=== PATIENT | male | born 1935 | race Caucasian/White ===

== ENCOUNTER 2018-11-18 09:49 | Inpatient (IN) | payer OTHER ==
[2018-11-18 10:48] LABS: Absolute Lymphocytes (CBC) 1.5 K/uL (0.7-4.9); Absolute Monocytes 0.7 K/uL (0.1-1.3); Absolute Neutrophil 6.1 K/uL (1.8-8.0); Basophils % 0.4 % (0-1.3); Eosinophils % 0.8 % (0-4.4); Hematocrit 22.5 % (39.6-49.0); Lymphocytes % 18.4 % (15.3-44.8); MPV 8.8 fL (7.6-11.3); RBC Red Blood Cell Count 2.39 M/uL (4.33-5.43)
[2018-11-18 10:55] LABS: Potassium 4.3 mmol/L (3.5-5.1)
[2018-11-18] MEDS: PANTOPRAZOLE INJ 80 MG in NA CHLORIDE 0.9% 250 ML IV SCH ×2 (12:00→22:00)
[2018-11-18] MEDS ORDERED: PANTOPRAZOLE 40MG TABLET PO ONE (12:10)
[2018-11-18] MEDS ORDERED: PANTOPRAZOLE 40 MG INJ ONE ×2 (12:11→23:22)
--- NOTE | 2018-11-18 12:12 | EDPHYS ---
Physician Documentation [facility] [place] Name: Kyle De Guzman Age: 83 yrs Sex: Male : 1935 Arrival Date: 11/18/2018 Time: 09:51 Bed 8 Private MD: ED Physician Karl Peterson HPI: 11/18 12:05 This 83 yrs old Male presents to ER via Ambulatory with complaints of gs Abnormal Lab Results, Blood Pressure Problem. 12:05 The patient presents to the emergency department UNSURE, HB LOW ON IRON STOOLS DARK NO gs PAIN. Onset: The symptoms/episode began/occurred 1 week(s) ago. Abdominal pain: none is appreciated. Modifying factors: the symptoms are aggravated by EXERTION GETS SOB. Associated signs and symptoms: The patient has no apparent associated signs or symptoms. Severity of symptoms: At their worst the symptoms were severe in the emergency department the symptoms are unchanged. The patient has experienced similar episodes in the past, a few times. The patient has been recently seen by a physician: the patient's primary care provider, with similar presenting complaints. Historical: - Allergies: 10:06 No Known Allergies; aa5 - PMHx: 10:06 Diabetes - IDDM; Hypertension; "one seizure in the past"; aa5 10:07 COPD; aa5 - PSHx: 10:06 triple bypass; Heart stents; aa5 - Immunization history:: Flu vaccine is up to date. - Social history:: Smoking status: Patient/guardian denies using tobacco. - Ebola Screening: : No symptoms or risks identified at this time. ROS: 12:05 All other systems are negative. gs Exam: 12:05 Head/Face: Normocephalic, atraumatic. Eyes: Pupils equal round and reactive to light, gs extra-ocular motions intact. Lids and lashes normal. Conjunctiva and sclera are non-icteric and not injected. Cornea within normal limits. Periorbital areas with no swelling, redness, or edema. ENT: Nares patent. No nasal discharge, no septal abnormalities noted. Tympanic membranes are normal and external auditory canals are clear. Oropharynx with no redness, swelling, or masses, exudates, or evidence of obstruction, uvula midline. Mucous membranes moist. Neck: Trachea midline, no thyromegaly or masses palpated, and no cervical lymphadenopathy. Supple, full range of motion without nuchal rigidity, or vertebral point tenderness. No Meningismus. 12:05 Chest/axilla: Normal chest wall appearance and motion. Nontender with no deformity. No lesions are appreciated. Cardiovascular: Regular rate and rhythm with a normal S1 and S2. No gallops, murmurs, or rubs. Normal PMI, no JVD. No pulse deficits. Respiratory: Lungs have equal breath sounds bilaterally, clear to auscultation and percussion. No rales, rhonchi or wheezes noted. No increased work of breathing, no retractions or nasal flaring. Abdomen/GI: Soft, non-tender, with normal bowel sounds. No distension or tympany. No guarding or rebound. No evidence of tenderness throughout. Back: No spinal tenderness. No costovertebral tenderness. Full range of motion. Skin: Warm, dry with normal turgor. Normal color with no rashes, no lesions, and no evidence of cellulitis. MS/ Extremity: Pulses equal, no cyanosis. Neurovascular intact. Full, normal range of motion. Neuro: Awake and alert, GCS 15, oriented to person, place, time, and situation. Cranial nerves II-XII grossly intact. Motor strength 5/5 in all extremities. Sensory grossly intact. Cerebellar exam normal. Normal gait. 12:05 Constitutional: The patient appears alert, awake. 12:05 Constitutional: The patient appears pale. 12:05 Abdomen/GI: Rectal exam: Stool: guaiac positive, black. Vital Signs: 10:04 BP 100 / 36; Pulse 74; Resp 16 S; Temp 97.9(TE); Pulse Ox 95% on R/A; Weight 74.39 kg aa5 (R); Height 5 ft. 11 in. (180.34 cm) (R); 11:30 BP 140 / 39; Pulse 58; Resp 16 S; Pulse Ox 98% on R/A; sg 12:11 BP 142 / 47; Pulse 60; Resp 17; Pulse Ox 98% on R/A; Pain 0/10; sg 14:38 BP 166 / 47; Pulse 62; Resp 17; Temp 97.7; Pulse Ox 98% on R/A; Pain 0/10; sg 10:04 Body Mass Index 22.87 (74.39 kg, 180.34 cm) aa5 MDM: 10:39 Patient medically screened. 12:05 Differential diagnosis: gastritis, diverticulitis, hemorrhagic shock, PUD. Data reviewed: vital signs, nurses notes, lab test result(s), EKG. Counseling: I had a detailed discussion with the patient and/or guardian regarding: the historical points, exam findings, and any diagnostic results supporting the discharge/admit diagnosis, the need for further work-up and treatment in the hospital. Response to treatment: the patient's symptoms have mildly improved after treatment, and as a result, I will admit patient. Physician consultation: Sravan Ramsey MD regarding consult, patient's condition, need to evaluate the patient as soon as possible, and will see patient in inpatient room, would like admission per Dr. Lewis Gonzalez MD. 12:05 Physician consultation: would like medications started, blood. 11/18 10:14 Order name: CBC with Diff; Complete Time: 11:02 11/18 10:14 Order name: Basic Metabolic Panel; Complete Time: 11:02 11/18 10:14 Order name: T\\T\\S 11/18 10:14 Order name: Protime (+inr); Complete Time: 11:02 11/18 11:59 Order name: ABO/RH no charge; Complete Time: 12:12 EDMS Administered Medications: 12:04 Not Given (Duplicate Order): ProTONIX 40 mg PO once sg 12:05 Drug: ProTONIX 40 mg Route: IVP; Site: left antecubital; sg 12:15 Drug: ProTONIX 8 mg/hr Route: IV; Rate: 25 ml/hr; Site: left antecubital; sg 15:00 Follow up: Response: No adverse reaction; IV Status: Infusion continued upon admission sg Disposition: 11/18/18 12:11 Hospitalization ordered by Lewis Gonzalez for Inpatient Admission. Preliminary diagnosis is Gastrointestinal hemorrhage, unspecified. - Bed requested for Telemetry/MedSurg (Inpatient). - Status is Inpatient Admission. sg - Condition is Stable. - Problem is new. - Symptoms have improved. UTI on Admission? No Critical care time excluding procedures: 12:05 Critical care time: Bedside Care: 10 minutes, Consultation: 10 minutes, Family gs Intervention: 10 minutes. Total time: 30 minutes Signatures: Dispatcher [employer] EDJohnna Worthy RN RN Geovany Ruvaclaba, RN RN sg Richa Ivan RN RN aa5 Karl Peterson MD MD Corrections: (The following items were deleted from the chart) 14:11 12:11 Hospitalization Ordered by Lewis Gonzalez MD for Inpatient Admission. Preliminary dw diagnosis is Gastrointestinal hemorrhage, unspecified. Bed requested for Telemetry/MedSurg (Inpatient). Status is Inpatient Admission. Condition is Stable. Problem is new. Symptoms have improved. UTI on Admission? No. gs 15:07 14:11 11/18/2018 12:11 Hospitalization Ordered by Lewis Gonzalez MD for Inpatient sg Admission. Preliminary diagnosis is Gastrointestinal hemorrhage, unspecified. Bed requested for Telemetry/MedSurg (Inpatient). Status is Inpatient Admission. Condition is Stable. Problem is new. Symptoms have improved. UTI on Admission? No. dw
--- NOTE | 2018-11-18 12:12 | ER ---
Nurse's Notes [facility] Name: Kyle De Guzman Age: 83 yrs Sex: Male : 1935 Arrival Date: 11/18/2018 Time: 09:51 Bed 8 Private MD: Diagnosis: Gastrointestinal hemorrhage, unspecified Presentation: 11/18 10:02 Presenting complaint: Patient states: "Dr. Hull called me and said to come here aa5 because my blood work was low". Hemoglobin 8.5 on 11/14/18. Pt c/o generalized weakness. Transition of care: patient was not received from another setting of care. Onset of symptoms was October 2018. Risk Assessment: Do you want to hurt yourself or someone else? Patient reports no desire to harm self or others. Initial Sepsis Screen: Does the patient meet any 2 criteria? No. Patient's initial sepsis screen is negative. Does the patient have a suspected source of infection? No. Patient's initial sepsis screen is negative. Care prior to arrival: None. 10:02 Acuity: JAVI 2 aa5 10:02 Method Of Arrival: Ambulatory aa5 Historical: - Allergies: 10:06 No Known Allergies; aa5 - PMHx: 10:06 Diabetes - IDDM; Hypertension; "one seizure in the past"; aa5 10:07 COPD; aa5 - PSHx: 10:06 triple bypass; Heart stents; aa5 - Immunization history:: Flu vaccine is up to date. - Social history:: Smoking status: Patient/guardian denies using tobacco. - Ebola Screening: : No symptoms or risks identified at this time. Screenin:15 Abuse screen: Denies threats or abuse. Denies injuries from another. Nutritional sg screening: No deficits noted. Tuberculosis screening: No symptoms or risk factors identified. Never had TB. Fall Risk None identified. Assessment: 10:30 General: Appears in no apparent distress. slender, well groomed, well developed, well sg nourished, Behavior is calm, quiet. Pain: Denies pain. Neuro: Level of Consciousness is awake, alert, obeys commands, Oriented to person, place, time, Distributed Generation Project Manager are equal bilaterally Moves all extremities. Full function Speech is normal. Cardiovascular: Heart tones S1 S2 present Capillary refill is brisk in bilateral fingers Patient's skin is warm and dry. Chest pain is denied. Respiratory: Airway is patent Respiratory effort is even, unlabored, Respiratory pattern is regular, symmetrical. GI: No signs and/or symptoms were reported involving the gastrointestinal system. : No signs and/or symptoms were reported regarding the genitourinary system. EENT: No signs and/or symptoms were reported regarding the EENT system. Derm: Skin is intact, is thin, Skin is dry, Skin is jaundiced, pale, Skin temperature is cool. Musculoskeletal: No signs and/or symptoms reported regarding the musculoskeletal system. 12:40 Reassessment: Patient appears in no apparent distress at this time. Patient and/or sg family updated on plan of care and expected duration. Pain level reassessed. Patient is alert, oriented x 3, equal unlabored respirations, skin warm/dry/pink. awaiting a bed assignment at this time, will continue to monitor Patient denies pain at this time. Vital Signs: 10:04 BP 100 / 36; Pulse 74; Resp 16 S; Temp 97.9(TE); Pulse Ox 95% on R/A; Weight 74.39 kg aa5 (R); Height 5 ft. 11 in. (180.34 cm) (R); 11:30 BP 140 / 39; Pulse 58; Resp 16 S; Pulse Ox 98% on R/A; sg 12:11 BP 142 / 47; Pulse 60; Resp 17; Pulse Ox 98% on R/A; Pain 0/10; sg 14:38 BP 166 / 47; Pulse 62; Resp 17; Temp 97.7; Pulse Ox 98% on R/A; Pain 0/10; sg 10:04 Body Mass Index 22.87 (74.39 kg, 180.34 cm) aa5 ED Course: 09:51 Patient arrived in ED. as 10:02 Arm band placed on. aa5 10:04 Triage completed. aa5 10:14 Karl Peterson MD is Attending Physician. 10:19 Geovany Ochoa, PATRICIA is Primary Nurse. sg 10:27 Initial lab(s) drawn, by me, sent to lab. T\\T\\S collected, blood band applied to patient. dh3 Inserted saline lock: 20 gauge in left antecubital area, using aseptic technique. Blood collected. 10:40 Patient has correct armband on for positive identification. Bed in low position. Call sg light in reach. Side rails up X2. surveillance monitor on. Pulse ox on. NIBP on. Warm blanket given. Pillow given. Head of bed elevated. 11:23 Repeat lab(s) drawn. by me, sent to lab. sg 12:11 Lewis Gonzalez MD is Hospitalizing Provider. gs 14:39 No provider procedures requiring assistance completed. Patient admitted, IV remains in sg place. intact, No redness/swelling at site. Administered Medications: 12:04 Not Given (Duplicate Order): ProTONIX 40 mg PO once sg 12:05 Drug: ProTONIX 40 mg Route: IVP; Site: left antecubital; sg 12:15 Drug: ProTONIX 8 mg/hr Route: IV; Rate: 25 ml/hr; Site: left antecubital; sg 15:00 Follow up: Response: No adverse reaction; IV Status: Infusion continued upon admission sg Outcome: 12:11 Decision to Hospitalize by Provider. gs 14:39 Admitted to Tele accompanied by tech, via wheelchair, room 228, with chart, Report sg called to PATRICIA Mandujano 14:39 Condition: stable 14:39 Instructed on discharge instructions, follow up and referral plans. safety practices, Demonstrated understanding of instructions, follow-up care. 15:07 Patient left the ED. Signatures: Geovany Ochoa RN PATRICIA Trudy Tripathi Audri, RN RN aa5 Sharmin Ellsworth 3 Karl Peterson MD MD Corrections: (The following items were deleted from the chart) 10:07 10:04 BP 100 / 36; Pulse 74bpm; Resp 16bpm; Spontaneous; Pulse Ox 95% RA; Temp 97.9F aa5 Temporal; aa5
[2018-11-18] MEDS ORDERED: ALBUTEROL 2.5 MG/3 ML NEB SOL NEB PRN (15:13)
[2018-11-18] MEDS ORDERED: D50W 25 GM/50 ML SYRINGE IV PRN (15:18)
[2018-11-18] MEDS ORDERED: GLUCAGON 1 MG/VIAL IM PRN (15:18)
[2018-11-18 16:05] VITALS: BMI 22.3
[2018-11-18] MEDS ORDERED: INSULIN -REGULAR HUMAN 50 UNIT/0.5 ML ML SQ SCH (16:30)
--- NOTE | 2018-11-18 16:52 | P.HP ---
Certification for Inpatient Patient admitted to: Inpatient With expected LOS: >2 Midnights Practitioner: I am a practitioner with admitting privileges, knowledge of patient current condition, hospital course, and medical plan of care. Services: Services provided to patient in accordance with Admission requirements found in Title 42 Section 412.3 of the Code of Federal Regulations Patient History Date of Service: 11/18/18 Reason for admission: Acute Blood loss anemia History of Present Illness: This is a 83 year old male with a past medical history of hypertension, COPD, insulin-dependent diabetes mellitus and interval bypass for which she is on Plavix admitted for abnormal hemoglobin levels in the primary care physician's office. Per patient, for the past 3 weeks he has been feeling general weakness that has been progressively worsening. States for the past few days now he has been having a very hard time walking due to dizziness and intermittent shortness of breath with the walking. He did notice dark/maroon stools recently but he is not sure how long this may have been going on for. He went to his primary care physician on , had some blood work done. He was seen again in his primary care physician's office today and was sent to the ER for abnormal hemoglobin of 8.5.. In the ER, his blood pressure was 100/36, heart rate of 74, respirations of 16 and temperature 97.9. His BMI is 22.87 and he is satting 95% on room air. His labs were remarkable for a hemoglobin level of 7.5 from the 8.5 on 2018. He is creatinine was 2 on blood sugars was 396. Otherwise his lab work was unremarkable. He had a guaiac-positive stool in the ER. He received IV Protonix in the ER. Dr. salazar, gastroenterology, was called from the ER by the ER physician, as patient does see Dr. salazar as an outpatient. At the time of my exam, patient was alert oriented x3, in no acute distress and was hemodynamically stable. He was admitted for further evaluation of his GI bleed and acute blood loss anemia along with transfusion. Allergies No Known Allergies Allergy (Verified 02/20/12 16:47) Home medications list reviewed: Yes Home Medications: Amlodipine Besylate 5 mg PO DAILY 02/21/12 Aspirin 81 mg PO DAILY 02/21/12 Clopidogrel Bisulfate [Plavix] 75 mg PO DAILY 02/21/12 Donepezil [Aricept] 5 mg PO DAILY 02/21/12 Ferrous Gluconate 325 mg PO DAILY 02/21/12 Furosemide [Lasix] 20 mg PO DAILY 02/21/12 Glimepiride [Amaryl] 4 mg PO BID 02/21/12 Losartan Potassium 100 mg PO DAILY 02/21/12 Omeprazole 40 mg PO DAILY 02/21/12 Simvastatin 40 mg PO BEDTIME 02/21/12 levETIRAcetam [Keppra] 500 mg PO BID 02/21/12 - Past Medical/Surgical History Has patient received pneumonia vaccine in the past: Yes Diabetic: Yes -: DM -: HTN -: peptic ulcers -: triple bypass -: stents - Family History Father -: Cancer Mother History Unknown: Yes - Social History Smoking Status: Former smoker Alcohol use: No CD- Drugs: No Caffeine use: Yes Place of Residence: Home Review of Systems 10-point ROS is otherwise unremarkable Physical Examination - Vital Signs Temperature: 97.7 F Blood Pressure: 166/47 Pulse: 62 Respirations: 17 - Physical Exam General: Alert, In no apparent distress, Oriented x3 HEENT: Atraumatic, PERRLA, Mucous membr. moist/pink, EOMI, Sclerae nonicteric Neck: Supple, 2+ carotid pulse no bruit, No LAD, Without JVD or thyroid abnormality Respiratory: Clear to auscultation bilaterally, Normal air movement Cardiovascular: Regular rate/rhythm, Normal S1 S2 Gastrointestinal: Normal bowel sounds, No tenderness Musculoskeletal: No tenderness Integumentary: No rashes Neurological: Normal gait, Normal speech, Normal strength at 5/5 x4 extr, Normal tone, Normal affect Lymphatics: No axilla or inguinal lymphadenopathy - Studies Laboratory Data (last 24 hrs) 11/18/18 10:27: PT 11.8, INR 1.00 11/18/18 10:27: Sodium 140, Potassium 4.3, BUN 52 H, Creatinine 2.00 H, Glucose 396 H 11/18/18 10:27: WBC 8.4 D, Hgb 7.5 L*, Hct 22.5 L, Plt Count 286 Assessment and Plan - Problems (Diagnosis) (1) Acute blood loss anemia Current Visit: Yes Status: Acute Plan: Likely secondary to GI bleed 2 units PRBCs ordered, pending transfusion. 2 hour post transfusion H&H check Hold anticoagulation at this time. Continue to monitor vitals. If becomes hemodynamically unstable, will need to transfer to ICU and provide further supportive care. (2) GI bleed Current Visit: Yes Status: Acute Plan: Patient does have a history of peptic ulcer disease. The stool guaiac-positive in the ER. GI consulted. 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 Will restart home medications once reconciled Qualifiers: Hypertension type: essential hypertension Qualified Code(s): I10 - Essential (primary) hypertension (5) COPD (chronic obstructive pulmonary disease) Current Visit: No Status: Chronic Plan: Will restart home medications. Stable at this time Qualifiers: COPD type: chronic bronchitis Chronic bronchitis type: unspecified Qualified Code(s): J42 - Unspecified chronic bronchitis (6) S/P triple vessel bypass Current Visit: Yes Status: Chronic Plan: We will have to hold anticoagulation at this time due to GI bleed/acute blood loss anemia. 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 Yoshi Salazar - Plan DVT prophylaxis: SCDs, hold chemical anticoagulation at this time due to GI bleed GI prophylaxis: Protonix, IV Diet: NPO at this time, pending GI evaluation Disposition: Admit to floor with tele. Continue to monitor hemodynamic stability. Pending GI evaluation and possible scope. - Advance Directives Does patient have a Living Will: Yes Does patient have a Durable POA for Healthcare: Yes Time Spent Managing Pts Care (In Minutes): 55
[2018-11-18] MEDS: INSULIN -REGULAR HUMAN 50 UNIT/0.5 ML ML SQ SCH (18:00)
[2018-11-18] MEDS ORDERED: METOCLOPRAMIDE 10 MG/2mL INJ IV PRN (18:28)
[2018-11-18] MEDS ORDERED: GOLYTELY 4000 ML PO SCH (19:00)
[2018-11-18] MEDS ORDERED: MAGNESIUM CITRATE 300 ML BOT PO SCH (19:00)
[2018-11-18] MEDS ORDERED: NA CHLORIDE 0.9% 250 ML ONE ×2 (21:11→23:19)
[2018-11-19] MEDS: INSULIN -REGULAR HUMAN 50 UNIT/0.5 ML ML SQ SCH ×5 (06:00→21:24)
[2018-11-19 07:02] LABS: Absolute Lymphocytes (CBC) 1.3 K/uL (0.7-4.9); Absolute Monocytes 0.6 K/uL (0.1-1.3); Absolute Neutrophil 6.1 K/uL (1.8-8.0); Basophils % 0.4 % (0-1.3); Lymphocytes % 16.2 % (15.3-44.8); MPV 8.2 fL (7.6-11.3); Monocytes % 7.7 % (3.3-12.3); RBC Red Blood Cell Count 3.07 M/uL (4.33-5.43)
[2018-11-19 07:15] LABS: Albumin 3.2 g/dL (3.4-5.0); Bilirubin Total 0.7 mg/dL (0.2-1.0); Phosphorus 2.6 mg/dL (2.5-4.9); Potassium 4.1 mmol/L (3.5-5.1); Protein, Total 5.8 g/dL (6.4-8.2)
[2018-11-19] MEDS: PANTOPRAZOLE INJ 80 MG in NA CHLORIDE 0.9% 250 ML IV SCH ×3 (08:00→18:30)
[2018-11-19] MEDS ORDERED: HYDRALAZINE HCL 20 MG/ML VIAL IV PRN (10:18)
[2018-11-19] MEDS ORDERED: NA CHLORIDE 0.9% 1,000 ML ONE (11:10)
[2018-11-19] MEDS ORDERED: LIDOCAINE 1% MPF 2 ML AMPULE ONE (11:55)
[2018-11-19] MEDS ORDERED: PROPOFOL 200 MG/20 ML VIAL IV ONE (11:55)
--- NOTE | 2018-11-19 12:02 | ENDO RPT ---
[address], [address] EGD PROCEDURE REPORT EXAM DATE: 11/19/2018 PATIENT NAME: Kyle De Guzman MR#: [id number] BIRTHDATE: 1935 ATTENDING: Sravan Ramsey Dr STATUS: inpatient - [facility] DRYWALLER: Moira Fuentes RN, Song Clarke RN, and Indira Gongora INDICATIONS: The patient is a 83 yr old Male here for an EGD due to iron deficiency anemia and suspicion of GI bleeding PROCEDURE PERFORMED: EGD with biopsy MEDICATIONS: Per Anesthesia. TOPICAL ANESTHETIC: none CONSENT: The patient understands the risks and benefits of the procedure and understands that these risks include, but are not limited to: sedation, allergic reaction, infection, perforation and/or bleeding. Alternative means of evaluation and treatment include, among others: physical exam, x-rays, and/or surgical intervention. The patient elects to proceed with this endoscopic procedure. DESCRIPTION OF PROCEDURE: During intra-op preparation period all mechanical medical equipment was checked for proper function. Hand hygiene and appropriate measures for infection prevention was taken. Procedure, possible complications, and alternatives including but not limited to the possibility of bleeding, perforation, tear, infection, sepsis, need for surgery, need for blood transfusion, and anesthesia related complications were explained to the patient. After the risks, benefits and alternatives of the procedure were thoroughly explained, Informed consent was verified, confirmed and timeout was successfully executed by the treatment team. The patient was placed in the left lateral position. The patient was anesthetized with topical anesthesia. Through the anesthetized oropharyngeal area, the scope was passed without any difficulty. The [id number] ([id number]) endoscope was introduced through the mouth and advanced to the third portion of the duodenum. Retroflexed views revealed a small hiatal hernia. The gastroscope was then slowly withdrawn and removed. A small hiatal hernia was found Mild gastritis was found in the antrum. Multiple biopsies were obtained and sent to pathology. Small bowel biopsies obtained with history of iron deficiency anemia. ADVERSE EVENTS: There were no complications. IMPRESSIONS: 1. A small hiatal hernia 2. Mild gastritis in the antrum, s/p biopsies 3. Small bowel biopsies obtained with history of iron deficiency anemia RECOMMENDATIONS: 1. await biopsy results 2. acid suppression therapy 3. colonoscopy REPEAT EXAM: Sravan Ramsey Dr eSigned: Sravan Ramsey Dr 11/19/2018 12:01 PM cc: Finn Hull CPT CODES: ICD9 CODES: PATIENT NAME: Kyle De GuzmanPhilip MR#: [id number]
--- NOTE | 2018-11-19 12:42 | ENDO RPT ---
[address], [address] COLONOSCOPY PROCEDURE REPORT EXAM DATE: 11/19/2018 PATIENT NAME: Kyle De Guzman MR #: [id number] BIRTHDATE: 1935 ATTENDING: Sravan Ramsey Dr STATUS: inpatient - [facility] SENIOR UI DEVELOPER: Moira Fuentes RN, Indira Gongora, and Song Clarke RN INDICATIONS: The patient is a 83 yr old Male here for a colonoscopy due to iron deficiency anemia and suspicion of GI bleeding, hgb decrease from 8 to 7 in hospital on Plavix PROCEDURE PERFORMED: Colonoscopy with biopsy - cold polypectomy and Colonoscopy with biopsy MEDICATIONS: Per Anesthesia. ESTIMATED BLOOD LOSS: None CONSENT: The patient understands the risks and benefits of the procedure and understands that these risks include, but are not limited to: sedation, allergic reaction, infection, perforation and/or bleeding. Alternative means of evaluation and treatment include, among others: physical exam, x-rays, and/or surgical intervention. The patient elects to proceed with this endoscopic procedure. DESCRIPTION OF PROCEDURE: During intra-op preparation period all mechanical medical equipment was checked for proper function. Hand hygiene and appropriate measures for infection prevention was taken. Procedure, possible complications, alternatives including, but not limited to possibility of bleeding, perforation, tear, infection, sepsis, need for surgery, need for blood transfusion, were explained to the patient. After the risks, benefits and alternatives of the procedure were thoroughly explained, Informed consent was verified, confirmed and timeout was successfully executed by the treatment team. The patient was placed in the left lateral position. A digital rectal exam was performed and revealed an enlarged prostate. After appropriate level of anesthesia, the scope was passed. The EG-[id number] ([id number]) and EC-3890Li ([id number]) endoscope was introduced through the anus and advanced to the cecum, which was identified by both the appendix and ileocecal valve. The quality of the prep was fair. The instrument was then slowly withdrawn as the colon was fully examined. Scope withdrawal time was 9 minutes. COLON FINDINGS: Multiple smooth sessile polyps measuring 3-12 mm in size were found throughout the entire examined colon. A polypectomy was performed with cold forceps. Multiple biopsies were performed using cold forceps in the cecum / ascending colon / transverse colon / descending colon / rectum . Melanosis coli was found throughout the entire examined colon. Small internal hemorrhoids were found. Retroflexed views revealed small hemorrhoids. The scope was then completely withdrawn from the patient and the procedure terminated. ADVERSE EVENTS: There were no complications. IMPRESSIONS: 1. Multiple sessile flat polyps measuring 3-12 mm in size throughout the entire examined colon; polypectomy was performed with cold forceps; multiple biopsies were performed using cold forceps in the cecum / ascending colon / transverse colon / descending colon / rectum 2. 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 Small internal hemorrhoids RECOMMENDATIONS: 1. await biopsy results 2. avoid NSAIDS for 2 weeks 3. Small Bowel Follow Through 4. pillcam / capsule endoscopy 5. U/A 6. constipation therapy RECALL: Return in 1 month(s) for Colonoscopy. Sravan Ramsey Dr eSigned: Sravan Ramsey Dr 11/19/2018 12:42 PM cc: CPT CODES: ICD9 CODES: 1. 600.0 Hypertrophy (benign) of prostate 2. 211.3 Benign neoplasm of colon PATIENT NAME: Kyle De Guzman MR#: [id number]
--- NOTE | 2018-11-19 12:53 | ENDO RPT ---
[address], [address] COLONOSCOPY PROCEDURE REPORT EXAM DATE: 11/19/2018 PATIENT NAME: Kyle De Guzman MR #: [id number] BIRTHDATE: 1935 ATTENDING: Sravan Ramsey Dr STATUS: inpatient - [facility] POLYSOMNOGRAPHY TECHNOLOGIST: Moira Fuentes RN, Indira Gongora, and Song Clarke RN INDICATIONS: The patient is a 83 yr old Male here for a colonoscopy due to iron deficiency anemia and suspicion of GI bleeding, hgb decrease from 8 to 7 in hospital on Plavix PROCEDURE PERFORMED: Colonoscopy with biopsy - cold polypectomy and Colonoscopy with biopsy MEDICATIONS: Per Anesthesia. ESTIMATED BLOOD LOSS: None CONSENT: The patient understands the risks and benefits of the procedure and understands that these risks include, but are not limited to: sedation, allergic reaction, infection, perforation and/or bleeding. Alternative means of evaluation and treatment include, among others: physical exam, x-rays, and/or surgical intervention. The patient elects to proceed with this endoscopic procedure. DESCRIPTION OF PROCEDURE: During intra-op preparation period all mechanical medical equipment was checked for proper function. Hand hygiene and appropriate measures for infection prevention was taken. Procedure, possible complications, alternatives including, but not limited to possibility of bleeding, perforation, tear, infection, sepsis, need for surgery, need for blood transfusion, were explained to the patient. After the risks, benefits and alternatives of the procedure were thoroughly explained, Informed consent was verified, confirmed and timeout was successfully executed by the treatment team. The patient was placed in the left lateral position. A digital rectal exam was performed and revealed an enlarged prostate. After appropriate level of anesthesia, the scope was passed. The EG-[id number] ([id number]) and EC-3890Li ([id number]) endoscope was introduced through the anus and advanced to the cecum, which was identified by both the appendix and ileocecal valve. The quality of the prep was fair. The instrument was then slowly withdrawn as the colon was fully examined. Scope withdrawal time was 9 minutes. COLON FINDINGS: Multiple smooth sessile polyps measuring 3-12 mm in size were found throughout the entire examined colon. A polypectomy was performed with cold forceps. Multiple biopsies were performed using cold forceps in the cecum / ascending colon / transverse colon / descending colon / rectum . Melanosis coli was found throughout the entire examined colon. Small internal hemorrhoids were found. Retroflexed views revealed small hemorrhoids. The scope was then completely withdrawn from the patient and the procedure terminated. ADVERSE EVENTS: There were no complications. IMPRESSIONS: 1. Multiple sessile flat polyps measuring 3-12 mm in size throughout the entire examined colon; polypectomy was performed with cold forceps; multiple biopsies were performed using cold forceps in the cecum / ascending colon / transverse colon / descending colon / rectum 2. 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 Small internal hemorrhoids RECOMMENDATIONS: 1. await biopsy results 2. avoid NSAIDS for 2 weeks 3. Small Bowel Follow Through 4. pillcam / capsule endoscopy 5. U/A 6. constipation therapy RECALL: Return in 1 month(s) for Colonoscopy. Sravan Ramsey Dr eSigned: Sravan Ramsey Dr 11/19/2018 12:52 PM Revised: 11/19/2018 12:52 PM cc: Finn Hull MD CPT CODES: ICD9 CODES: 1. 600.0 Hypertrophy (benign) of prostate 2. 211.3 Benign neoplasm of colon PATIENT NAME: Kyle De Guzman MR#: [id number]
--- NOTE | 2018-11-19 14:48 | RAD REPORT ---
EXAM DESCRIPTION: RAD - Small Bowel Series - 11/19/2018 2:36 pm CLINICAL HISTORY: Decreasing hemoglobin, occult GI bleed COMPARISON: None. FINDINGS: Chemical Laboratory Chief film shows a nonspecific bowel gas pattern. No obstruction or free air. No suspiciou s calcifications. Gastric size and mucosal fold pattern are normal. No delay in transit of contrast into the small thelma l. Small bowel is normal in diameter with no mucosal fold thickening. No intrinsic or extrinsic mass identifiable. Terminal ileum has normal appearance. Transit time to the colon is 30 minutes. IMPRESSION: Normal small bowel series.
[2018-11-19] MEDS ORDERED: HOME MED 1 EA UNK (Donepezil Hcl [Donepezil Hcl] 1 TAB) PO SCH (21:00)
[2018-11-19] MEDS ORDERED: DONEPEZIL HCL 5 MG TAB PO SCH (21:00)
[2018-11-19] MEDS ORDERED: INSULIN DETEMIR 9 UNIT SQ SCH (21:00)
--- NOTE | 2018-11-19 21:05 | PN ---
Date of Progress Note: 11/19/2018 Subjective: The patient seen and examined. Chart reviewed and case discussed with RN. The patient went for colonoscopy today. Denies any further active bleeding. Medications: List reviewed. Code Status: Full code. Physical Examination: Vital Signs: Temperature 97.6, heart rate 64, blood pressure 190/77, respirations 18, O2 96% on room air. General: Awake, alert, and oriented x3. Elderly male, somewhat mild distress. CV: S1 and S2. Regular rate and rhythm. No murmurs. Respiratory: Moving air well bilaterally. No wheezing or stridor. No use of accessory muscles. Gastrointestinal: Abdomen is soft, nontender, and nondistended. Positive bowel sounds. No guarding or rigidity. Extremities: No clubbing, cyanosis, or edema. No calf tenderness. Neurologic: Cranial nerves 2 through 12 intact grossly. No focal neurological deficit. Speech is n ormal. Laboratory Data: Sodium 145, potassium 4.1, chloride 107, CO2 30, BUN 38, creatinine 1.66, glucose 2 11, calcium 8, phosphorus 2.6, magnesium 3. WBC 8.2, H and H 9.5 and 28, platelets 252, neutrophils 74%. Small bowel x-ray shows normal small bowel series. Assessment And Plan: 1.Gastrointestinal bleed secondary to lower source status. The patient has now status post colonosc opy and EGD. EGD showed some small hiatal hernia and gastritis. Colonoscopy showed multiple polyps, which were removed by Dr. Ramsey. 2.Acute blood loss anemia secondary to above. The patient has status post 2 units of PRBCs. We albina l continue to monitor H and H. Plavix is on hold at this time. The patient is seen hemodynamically stable. However, post procedure he has becomes hypotensive. We will continue to monitor. 3.Diabetes mellitus type 2 with long-term use of insulin with hyperglycemia. We will continue with Accu-Cheks and sliding scale insulin. 4.Essential hypertension, currently hypotensive post procedure. We will continue to monitor. 5.Chronic obstructive pulmonary disease, chronic bronchitis, not requiring any supplemental oxygen. Continue albuterol p.r.n. 6.Coronary artery disease, habematolel artery and habematolel heart, status post coronary artery bypass graft. The patient sees Dr. Salazar. 7.Peripheral arterial disease. The patient has had stents placed in his lower extremities. Plavix on hold due to gastrointestinal bleed. Plan: DVT prophylaxis with SCDs. No chemical anticoagulation due to gastrointestinal bleed. Contin ue with IV Protonix. /MAYURI Voice ID: [id number] Report ID: [id number]
[2018-11-19] MEDS: INSULIN GLARGINE 100 UNITS/ML SQ SCH (21:24)
[2018-11-19] MEDS: FERROUS SULFATE 325 MG TAB PO SCH (21:25)
[2018-11-20] MEDS: PANTOPRAZOLE INJ 80 MG in NA CHLORIDE 0.9% 250 ML IV SCH ×3 (00:31→12:24)
[2018-11-20 06:20] LABS: Absolute Monocytes 0.9 K/uL (0.1-1.3); Absolute Neutrophil 7.9 K/uL (1.8-8.0); Basophils % 0.4 % (0-1.3); Eosinophils % 1.5 % (0-4.4); Hematocrit 29.1 % (39.6-49.0); Lymphocytes % 10.3 % (15.3-44.8); MPV 8.3 fL (7.6-11.3); Monocytes % 9.2 % (3.3-12.3); RBC Red Blood Cell Count 3.13 M/uL (4.33-5.43)
[2018-11-20 06:31] LABS: Albumin 3.1 g/dL (3.4-5.0); Bilirubin Total 0.8 mg/dL (0.2-1.0); Potassium 3.7 mmol/L (3.5-5.1); Protein, Total 5.7 g/dL (6.4-8.2)
[2018-11-20] MEDS: INSULIN -REGULAR HUMAN 50 UNIT/0.5 ML ML SQ SCH ×2 (07:30→11:30)
[2018-11-20] MEDS ORDERED: POTASSIUM CL SA 10 MEQ TAB PO ONE (09:00)
[2018-11-20] MEDS ORDERED: LOSARTAN POTASSIUM 50 MG TABLET PO SCH (09:00)
[2018-11-20] MEDS: INSULIN GLARGINE 100 UNITS/ML SQ SCH (09:16)
[2018-11-20] MEDS: FERROUS SULFATE 325 MG TAB PO SCH (09:17)
[2018-11-20 10:12] VITALS: O2SAT 98
[2018-11-20 12:20] VITALS: TEMP 98.5
[2018-11-20 14:59] VITALS: BP 158/73
--- NOTE | 2018-11-21 01:19 | DS ---
Date of Discharge: 11/20/2018 Consultants: Dr. Ramsey with GI. Procedures: Colonoscopy on 11/19/2018, with multiple polypectomies, melanosis coli, small internal h emorrhoids. Biopsies pending. Repeat colonoscopy in 1 month. The patient will need small-bowel fol low-through, PillCam capsule endoscopy, and no NSAIDs for 2 weeks. Procedures on 11/19/2018, EGD fin dings show small hiatal hernia, mild gastritis, status post biopsies. Admitting Diagnoses: 1.Acute GI bleed, likely lower source. 2.Acute blood loss anemia. 3.Diabetes mellitus, type 2, with long-term use of insulin with hyperglycemia. 4.Essential hypertension. 5.COPD, chronic bronchitis. 6.Status post triple-vessel disease. Discharge Diagnoses: 1.GI bleed secondary to colonic polyps, status post polypectomy. 2.Acute gastritis, on continued PPI. 3.Acute blood loss anemia secondary to above, status post 2 units PRBCs, stable. 4.Diabetes mellitus, type 2, with long-term use of insulin with hyperglycemia. 5.Essential hypertension, stable. 6.Chronic obstructive pulmonary disease with chronic bronchitis. 7.Coronary artery disease, [place] artery, [place] heart, status post CABG. 8.Peripheral arterial disease, status post stents. Plavix on hold. Hospital Course: The patient is an 83-year-old male with past medical history of hypertension, COPD, insulin-dependent diabetes, peripheral vascular disease, and coronary artery disease, on Plavix, who comes in with melenic stool. The patient's hemoglobin was 7.5. He was found to have guaiac-positiv e stool in the ER. The patient was admitted to the hospital, given 2 units of PRBCs. His hemoglobin improved to 9.5 and remained stable. The patient was seen by Dr. Ramsey with GI and was taken for c olonoscopy and EGD. The patient tolerated the procedures well and he was found to have multiple poly ps and hiatal hernia as well as gastritis. He was continued on PPI drip. The patient was counseled regarding avoiding NSAIDs. He will need to be on acid suppression therapy. He will need repeat colo noscopy in 1 month as well as capsule endoscopy and further workup by GI. Continue on iron supplemen tation. The patient also has some chronic kidney disease. His creatinine remained stable. He is at stage III. The patient, otherwise, did well. He was able to ambulate without difficulty. He was n o longer dizzy, lightheaded, or have any near syncopal-type symptoms. He was cleared for discharge f rom GI standpoint. Followup: The patient to follow up with primary care physician in 2-3 days. Follow up with GI, Dr. Ramsey, in 2 weeks. Return to ER for worsening condition. Medications: As per medication reconciliation list. Diet: Diabetic. Physical Examination: General: Awake, alert, oriented x3. No acute distress, elderly male. CV: S1, S2. Peripheral pulses weak. Respiratory: Moving air well bilaterally. Abdomen: Soft, nontender, nondistended. Positive bowel sounds. Extremities: No clubbing, cyanosis, edema. Neuro: Nonfocal. Total time spent discharging the patient was 41 minutes. SUSY Voice ID: [id number] Report ID: [id number]
== END 2018-11-20 16:00 | disposition home or self-care (01) | DRG 394 ==
LOC: ER 09:49 → ERHOLD 12:17 → 2ND 14:39
PROVIDERS: ADMIT Family Medicine; ATTEND Family Medicine
PROC: 30233N1 Transfusion of Nonautologous Red Blood Cells into Peripheral Vein, Percutaneous Approach (ICD-10-PCS; 2018-11-18)
PROC: 0DBP8ZX Excision of Rectum, Via Natural or Artificial Opening Endoscopic, Diagnostic (ICD-10-PCS; 2018-11-19)
PROC: 0DBM8ZX Excision of Descending Colon, Via Natural or Artificial Opening Endoscopic, Diagnostic (ICD-10-PCS; 2018-11-19)
PROC: 0DBH8ZX Excision of Cecum, Via Natural or Artificial Opening Endoscopic, Diagnostic (ICD-10-PCS; 2018-11-19)
PROC: 0DBE8ZZ Excision of Large Intestine, Via Natural or Artificial Opening Endoscopic (ICD-10-PCS; 2018-11-19)
PROC: 0DB78ZX Excision of Stomach, Pylorus, Via Natural or Artificial Opening Endoscopic, Diagnostic (ICD-10-PCS; 2018-11-19)
PROC: 0DB88ZX Excision of Small Intestine, Via Natural or Artificial Opening Endoscopic, Diagnostic (ICD-10-PCS; 2018-11-19)
PROC: 0DBK8ZX Excision of Ascending Colon, Via Natural or Artificial Opening Endoscopic, Diagnostic (ICD-10-PCS; principal; 2018-11-19 11:30)
PROC: 0DBL8ZX Excision of Transverse Colon, Via Natural or Artificial Opening Endoscopic, Diagnostic (ICD-10-PCS; 2018-11-19 11:30)
DX: D12.6 Benign neoplasm of colon, unspecified (principal); K92.1 Melena; D62 Acute posthemorrhagic anemia; K63.89 Other specified diseases of intestine; K64.8 Other hemorrhoids; N40.0 Benign prostatic hyperplasia without lower urinary tract symptoms; K44.9 Diaphragmatic hernia without obstruction or gangrene; K29.70 Gastritis, unspecified, without bleeding; D50.9 Iron deficiency anemia, unspecified; I10 Essential (primary) hypertension; J44.9 Chronic obstructive pulmonary disease, unspecified; E11.65 Type 2 diabetes mellitus with hyperglycemia; I25.10 Atherosclerotic heart disease of native coronary artery without angina pectoris; I95.9 Hypotension, unspecified; E11.51 Type 2 diabetes mellitus with diabetic peripheral angiopathy without gangrene; Z79.4 Long term (current) use of insulin; Z79.82 Long term (current) use of aspirin; Z87.11 Personal history of peptic ulcer disease; Z87.891 Personal history of nicotine dependence; Z95.1 Presence of aortocoronary bypass graft; Z95.5 Presence of coronary angioplasty implant and graft; Z95.820 Peripheral vascular angioplasty status with implants and grafts
CPT/HCPCS: 36415; 36430; 74250; 80048; 80053; 82962; 83735; 84100; 85025; 85610; 86850; 86900; 86901; 88305; 88312; 94760; 96365; 96366; 97162; 99285; C9113; J0360; J2001; J2704; J2765; J7030; P9016

== ENCOUNTER 2020-07-20 13:44 | Observation (INO) | payer OTHER ==
[2020-07-20] MEDS ORDERED: METHYLPREDNISOLONE 125 MG INJ ONE (14:19)
[2020-07-20 14:38] LABS: Absolute Lymphocytes (CBC) 1.5 K/uL (0.7-4.9); Basophils % 0.6 % (0-1.3); Hematocrit 36.9 % (39.6-49.0)
[2020-07-20 14:56] LABS: Potassium 3.6 mmol/L (3.5-5.1)
--- NOTE | 2020-07-20 15:00 | RAD REPORT ---
EXAM DESCRIPTION: Gilda Single View07/20/2020 2:44 pm CLINICAL HISTORY: Shortness of breath COMPARISON: 2018 FINDINGS: Mild bilateral pulmonary opacities. The heart is normal size. Lungs are hyperaerated. Post surgical changes involve the chest. There may be small pleural effusions IMPRESSION: These findings may indicate mild CHF
--- NOTE | 2020-07-20 15:31 | ER ---
Nurse's Notes [facility] Name: Kyle De Guzman Age: 85 yrs Sex: Male : 1935 Arrival Date: 07/20/2020 Time: 13:46 Bed 25 Private MD: Finn Hull Diagnosis: Pulmonary edema;Unspecified combined systolic (congestive) and diastolic (congestive) heart failure;Dyspnea, unspecified;Chronic obstructive pulmonary disease, unspecified Presentation: 07/20 14:00 Chief complaint: Patient states: SOB with cough for 1 week. Exposed to covid positive ll1 person 07/16. No fever, denies N/V/D. Coronavirus screen: Client denies travel out of the [place] in the last 14 days. cough unrelated to allergies, difficulty breathing, shortness of breath, Client presents with at least one sign or symptom that may indicate coronavirus-19. Standard/surgical mask placed on the client. Ebola Screen: Patient denies travel to an Ebola-affected area in the 21 days before illness onset. Initial Sepsis Screen: Does the patient meet any 2 criteria? No. Patient's initial sepsis screen is negative. Does the patient have a suspected source of infection? Yes: Productive cough/pneumonia. Risk Assessment: Do you want to hurt yourself or someone else? Patient reports no desire to harm self or others. Onset of symptoms was July 14, 2020. 14:00 Method Of Arrival: Wheelchair ll1 14:00 Acuity: JAVI 3 ll1 Triage Assessment: 14:10 Respiratory: Onset: The symptoms/episode began/occurred 07/16/2020, the patient has vg1 mild shortness of breath. Historical: - Allergies: 14:00 No Known Allergies; ll1 - PMHx: 14:00 "one seizure in the past"; COPD; Diabetes - IDDM; Hypertension; ll1 - PSHx: 14:00 triple bypass; Heart stents; ll1 - Immunization history:: Flu vaccine is up to date. - Social history:: Smoking status: Patient/guardian denies using tobacco, the patient reports quitting approximately 30 years ago. - Family history:: not pertinent. - Hospitalizations: : No recent hospitalization is reported. Screenin:10 Abuse screen: Denies threats or abuse. Nutritional screening: No deficits noted. vg1 Tuberculosis screening: No symptoms or risk factors identified. Fall Risk No fall in past 12 months (0 pts). No secondary diagnosis (0 pts). IV access (20 points). Ambulatory Aid- None/Bed Rest/Nurse Assist (0 pts). Gait- Normal/Bed Rest/Wheelchair (0 pts) Mental Status- Oriented to own ability (0 pts). Total Deleon Fall Scale indicates No Risk (0-24 pts). Assessment: 14:10 General: Appears in no apparent distress. comfortable, Behavior is calm, cooperative. vg1 Pain: Denies pain. 14:10 Neuro: Level of Consciousness is awake, alert, obeys commands, Oriented to person, vg1 place, time, situation. Cardiovascular: Patient's skin is warm and dry. Edema lower HALIMA extremities. Respiratory: Airway is patent Respiratory effort is even, unlabored, Respiratory pattern is regular, symmetrical, Respiratory: Reports cough that is productive. GI: No signs and/or symptoms were reported involving the gastrointestinal system. : No signs and/or symptoms were reported regarding the genitourinary system. EENT: No signs and/or symptoms were reported regarding the EENT system. Derm: Skin is pink, warm \\T\\ dry. Musculoskeletal: Range of motion: intact in all extremities. 14:30 Cardiovascular: Rhythm is regular. vg1 15:30 Reassessment: Patient appears in no apparent distress at this time. Patient is alert, vg1 oriented x 3, equal unlabored respirations, skin warm/dry/pink. 16:35 Reassessment: Patient appears in no apparent distress at this time. Patient and/or vg1 family updated on plan of care and expected duration. Pain level reassessed. Patient is alert, oriented x 3, equal unlabored respirations, skin warm/dry/pink. Patient denies pain at this time. 17:55 Reassessment: No changes from previously documented assessment. vg1 19:00 Reassessment: Patient appears in no apparent distress at this time. No changes from vg1 previously documented assessment. 20:00 Reassessment: Patient appears in no apparent distress at this time. Patient and/or vg1 family updated on plan of care and expected duration. Pain level reassessed. Patient is alert, oriented x 3, equal unlabored respirations, skin warm/dry/pink. Patient denies pain at this time. 20:35 Reassessment: Attempted to give report. vg1 20:56 Reassessment: Called Song GOMEZ back to give report, was unavailable at this time. 1 Vital Signs: 14:00 BP 151 / 70; Pulse 77; Resp 20; Temp 97.2; Pulse Ox 93% on R/A; Weight 76.2 kg; Height ll1 6 ft. 0 in. (182.88 cm); Pain 0/10; 14:00 BP 162 / 70; Pulse 70; Resp 20; Pulse Ox 93% on R/A; vg1 15:30 BP 143 / 87; Pulse 68; Resp 20; Pulse Ox 93% on R/A; vg1 16:30 BP 186 / 63; Pulse 73; Resp 18; Pulse Ox 95% on R/A; vg1 17:30 BP 196 / 66; Pulse 80; Resp 20; Pulse Ox 94% on R/A; vg1 18:30 BP 185 / 65; Pulse 80; Resp 20; Pulse Ox 95% ; vg1 19:30 BP 167 / 68; Pulse 82; Resp 18; Pulse Ox 93% on R/A; vg1 14:00 Body Mass Index 22.78 (76.20 kg, 182.88 cm) [facility] ED Course: 13:46 Patient arrived in ED. ag5 13:47 Finn Hull DO is Private Physician. ag5 13:50 Oscar Rajan MD is Attending Physician. rn 13:54 Caryn Farrell, PATRICIA is Primary Nurse. vg1 13:59 Arm band placed on Patient placed in an exam room, on a stretcher. ll1 14:00 First set of blood cultures drawn by oh. 1 14:02 Triage completed. ll1 14:15 Allergy band placed. Bed in low position. Call light in reach. Side rails up X2. vg1 court monitor on. Pulse ox on. NIBP on. 14:15 Second set of blood cultures drawn by oh. jb1 14:23 EKG done, by ED staff, reviewed by Oscar Rajan MD. Initial lab(s) drawn, by me, sent to [facility] lab. Inserted saline lock: 22 gauge in left antecubital area, using aseptic technique. Blood collected. 14:25 Flu Sent. jb1 14:30 Xray at bedside. 1 14:44 CXR XRAY In Process Unspecified. EDPA 15:30 Jay Bae is Hospitalizing Provider. rn 20:35 No provider procedures requiring assistance completed. vg1 21:03 Patient admitted, IV remains in place. vg1 Administered Medications: 14:26 Drug: SOLU-Medrol 125 mg Route: IVP; Site: left antecubital; vg1 15:56 Follow up: Response: No adverse reaction vg1 15:30 Drug: Lasix 40 mg Route: IVP; Site: left antecubital; vg1 17:57 Follow up: Response: No adverse reaction vg1 Output: 16:26 Urine: 450ml (Voided); Total: 450ml. vg1 17:53 Urine: 350ml (Voided); Total: 800ml. vg1 Outcome: 15:31 Decision to Hospitalize by Provider. rn 21:02 Admitted to Tele accompanied by tech, via stretcher, room 219, Report called to Song lanier RN 21:02 Condition: stable 21:02 Discharge instructions given to patient, Instructed on the need for admit. 21:53 Patient left the ED. mw2 Signatures: Dispatcher [employer] EDMS Sascha Sena jb1 Oscar Rajan MD MD rn [place], MyKena mw2 Yannick Skelton5 Caryn Farrell, RN RN vg1 Christine Adair, RN RN ll1 Corrections: (The following items were deleted from the chart) 15: 14:25 CORONAVIRUS+ drawn and sent. [facility] EDMS
--- NOTE | 2020-07-20 15:31 | EDPHYS ---
Physician Documentation [facility] Name: Kyle De Guzman Age: 85 yrs Sex: Male : 1935 Arrival Date: 07/20/2020 Time: 13:46 Bed 25 Private MD: Finn Hull ED Physician Oscar Rajan HPI: 07/20 13:58 This 85 yrs old Male presents to ER via Unassigned with complaints of rn Shortness Of Breath. 13:58 The patient has shortness of breath with light activity. Onset: The symptoms/episode rn began/occurred 3 day(s) ago. Duration: The symptoms are intermittent. The patient's shortness of breath is aggravated by exertion, light activity, is alleviated by rest. Severity of symptoms: At their worst the symptoms were mild in the emergency department the symptoms are unchanged. The patient has experienced similar episodes in the past. Reports hx of COPD, feels like it is acting up, sob for last few days, exposed to COVID + patient around [place], chronic cough, no new productive sputum, no fever, no chest pain. No loss of taste/smell, no diarrhea, no chest or abd pain.. Historical: - Allergies: 14:00 No Known Allergies; ll1 - PMHx: 14:00 "one seizure in the past"; COPD; Diabetes - IDDM; Hypertension; ll1 - PSHx: 14:00 triple bypass; Heart stents; ll1 - Immunization history:: Flu vaccine is up to date. - Social history:: Smoking status: Patient/guardian denies using tobacco, the patient reports quitting approximately 30 years ago. - Family history:: not pertinent. - Hospitalizations: : No recent hospitalization is reported. ROS: 13:58 Constitutional: Negative for fever, chills, and weight loss, Eyes: Negative for injury, rn pain, redness, and discharge, Neck: Negative for injury, pain, and swelling, Cardiovascular: Negative for chest pain, palpitations, and edema, Respiratory: + cough and sob Abdomen/GI: Negative for abdominal pain, nausea, vomiting, diarrhea, and constipation, Back: Negative for injury and pain, MS/Extremity: Negative for injury and deformity, Skin: Negative for injury, rash, and discoloration, Neuro: Negative for headache, numbness, tingling, and seizure. Exam: 13:58 Constitutional: This is a well developed, well nourished patient who is awake, alert rn Head/Face: Normocephalic, atraumatic. ENT: No stridor Cardiovascular: Regular rate and rhythm. No pulse deficits. Respiratory: No increased work of breathing, no retractions or nasal flaring. Abdomen/GI: Soft, non-tender Skin: Warm, dry MS/ Extremity: Pulses equal, no cyanosis. Neuro: Awake and alert, GCS 15 14:30 ECG was reviewed by the Attending Physician. rn Vital Signs: 14:00 BP 151 / 70; Pulse 77; Resp 20; Temp 97.2; Pulse Ox 93% on R/A; Weight 76.2 kg; Height ll1 6 ft. 0 in. (182.88 cm); Pain 0/10; 14:00 BP 162 / 70; Pulse 70; Resp 20; Pulse Ox 93% on R/A; vg1 15:30 BP 143 / 87; Pulse 68; Resp 20; Pulse Ox 93% on R/A; vg1 16:30 BP 186 / 63; Pulse 73; Resp 18; Pulse Ox 95% on R/A; vg1 17:30 BP 196 / 66; Pulse 80; Resp 20; Pulse Ox 94% on R/A; vg1 18:30 BP 185 / 65; Pulse 80; Resp 20; Pulse Ox 95% ; vg1 19:30 BP 167 / 68; Pulse 82; Resp 18; Pulse Ox 93% on R/A; vg1 14:00 Body Mass Index 22.78 (76.20 kg, 182.88 cm) ll1 MDM: 13:50 Patient medically screened. rn 15:27 Differential diagnosis: CHF exacerbation, pneumonia, Pneumothorax pulmonary edema. Data rn reviewed: vital signs, nurses notes, lab test result(s), EKG, radiologic studies, plain films, and as a result, I will admit patient. Counseling: I had a detailed discussion with the patient and/or guardian regarding: the historical points, exam findings, and any diagnostic results supporting the discharge/admit diagnosis, lab results, radiology results, the need for further work-up and treatment in the hospital. Response to treatment: the patient's symptoms have mildly improved after treatment, and as a result, I will admit patient. Admission orders: after a detailed discussion of the patient's condition and case, the admit orders are written by me. ED course: Pt with signs and symptoms consistent with pulmonary edema/CHF, not on diuretics, will admit to Dr. Bae for diuresis and cardiology consultation, afebrile but + covid exposure recently, COVID test pending. . 07/20 13:57 Order name: CBC with Diff; Complete Time: 14:59 rn 07/20 13:57 Order name: Blood Culture Adult (2) rn 07/20 13:57 Order name: BMP; Complete Time: 14:59 rn 07/20 13:57 Order name: Ferritin; Complete Time: 14:59 rn 07/20 13:57 Order name: Flu; Complete Time: 14:59 rn 07/20 13:57 Order name: Lactate; Complete Time: 14:59 rn 07/20 13:57 Order name: Procalcitonin; Complete Time: 15:19 rn 07/20 13:57 Order name: CXR XRAY; Complete Time: 15:06 rn 07/20 13:57 Order name: BNP; Complete Time: 14:59 rn 07/20 16:19 Order name: SARS-COV-2 RT PCR; Complete Time: 16:21 EDWV 07/20 19:53 Order name: Troponin I EDWV 07/20 19:54 Order name: Glucose, Ancillary Testing EDWV 07/20 13:57 Order name: IV Start; Complete Time: 14:24 rn 07/20 13:57 Order name: EKG; Complete Time: 13:59 rn 07/20 13:57 Order name: Cardiac monitoring; Complete Time: 14:24 rn 07/20 13:57 Order name: Droplet/Contact Precautions; Complete Time: 14:24 rn 07/20 13:57 Order name: EKG - Nurse/Tech; Complete Time: 14:24 rn 07/20 13:57 Order name: Labs collected and sent; Complete Time: 14:24 rn 07/20 13:57 Order name: O2 Per Protocol; Complete Time: 14:24 rn 07/20 13:57 Order name: O2 Sat Monitoring; Complete Time: 14:24 rn EC:30 Rate is 72 beats/min. Rhythm is irregular. QRS [place] is Normal. NE interval is normal. rn QRS interval is normal. QT interval is normal. No Q waves. T waves are Normal. No ST changes noted. Clinical impression: NSR w/ Non-specific ST/T Changes. Interpreted by me. Reviewed by me. Administered Medications: 14:26 Drug: SOLU-Medrol 125 mg Route: IVP; Site: left antecubital; vg1 15:56 Follow up: Response: No adverse reaction vg1 15:30 Drug: Lasix 40 mg Route: IVP; Site: left antecubital; vg1 17:57 Follow up: Response: No adverse reaction vg1 Disposition: 07/20/20 15:31 Hospitalization ordered by Jay Bae for Observation. Preliminary diagnosis are Pulmonary edema, Unspecified combined systolic (congestive) and diastolic (congestive) heart failure, Dyspnea, unspecified, Chronic obstructive pulmonary disease, unspecified. - Bed requested for Telemetry/MedSurg (observation). - Status is Observation. mw2 - Condition is Stable. - Problem is new. - Symptoms have improved. Signatures: Dispatcher [employer] EDWV Oscar Rajan MD MD rn Aguilar, Jose, RN RN ja1 Janusz Hernandez mw2 Maria A Rivas Victoria RN RN vg1 Christine Adair RN RN ll1 Corrections: (The following items were deleted from the chart) 15:31 13:59 CORONAVIRUS+MR.LAB.BRZ ordered. [facility] 17:04 15:31 Hospitalization Ordered by Jay Bae for Observation. Preliminary diagnosis eb is Pulmonary edema; Unspecified combined systolic (congestive) and diastolic (congestive) heart failure; Dyspnea, unspecified; Chronic obstructive pulmonary disease, unspecified. Bed requested for Telemetry/MedSurg (observation). Status is Observation. Condition is Stable. Problem is new. Symptoms have improved. rn 20:08 17:04 07/20/2020 15:31 Hospitalization Ordered by Jay Bae for Observation. ja1 Preliminary diagnosis is Pulmonary edema; Unspecified combined systolic (congestive) and diastolic (congestive) heart failure; Dyspnea, unspecified; Chronic obstructive pulmonary disease, unspecified. Bed requested for [facility] ER HOLD. Status is Observation. Condition is Stable. Problem is new. Symptoms have improved. eb 21:53 20:08 07/20/2020 15:31 Hospitalization Ordered by Jay Bae for Observation. mw2 Preliminary diagnosis is Pulmonary edema; Unspecified combined systolic (congestive) and diastolic (congestive) heart failure; Dyspnea, unspecified; Chronic obstructive pulmonary disease, unspecified. Bed requested for Telemetry/MedSurg (observation). Status is Observation. Condition is Stable. Problem is new. Symptoms have improved. ja1
[2020-07-20] MEDS ORDERED: FUROSEMIDE 40 MG/4 ML VIAL ONE (15:39)
--- NOTE | 2020-07-20 16:50 | P.HP ---
Certification for Inpatient Patient admitted to: Observation With expected LOS: <2 Midnights Practitioner: I am a practitioner with admitting privileges, knowledge of patient current condition, hospital course, and medical plan of care. Services: Services provided to patient in accordance with Admission requirements found in Title 42 Section 412.3 of the Code of Federal Regulations Patient History Date of Service: 07/20/20 Reason for admission: Shortness of breath History of Present Illness: 85-year-old gentleman with a history of congestive heart failure, coronary artery disease presented emergency department with a complaint of shortness of breath which has progressed form shortness of breath with exertion to shortness of breath at rest and orthopnea. Patient also reports significant bilateral lower extremity swelling. Chest x-ray done in the emergency department demonstrated mild bilateral pulmonary infiltrates suggestive of vascular congestion. His initial troponin is negative. BNP significantly elevated. Patient is hospitalized for further management of CHF exacerbation. Allergies No Known Allergies Allergy (Verified 02/20/12 16:47) Home Medications: Calcium Carbonate [Calcium] 1 tab PO DAILY 11/19/18 Donepezil HCl 1 tab PO BEDTIME 11/19/18 Ferrous Sulfate [Ferrous Sulfate*] 1 tab PO BID 11/19/18 Furosemide [Lasix] 1 tab PO DAILY 11/19/18 Insulin Detemir [Levemir Flextouch] 18 units SQ BID 11/19/18 Losartan Potassium [Cozaar*] 1 tab PO DAILY 11/19/18 Magnesium Oxide [Magnesium] 1 tab PO DAILY 11/19/18 Pantoprazole [Protonix Tab] 40 mg PO BID #60 tab 11/20/18 - Past Medical/Surgical History Diabetic: Yes -: DM -: HTN -: peptic ulcers -: triple bypass -: stents - Family History Father -: Cancer - Social History Alcohol use: No CD- Drugs: No Caffeine use: Yes Review of Systems Other: Except as documented, all other systems reviewed and negative. Physical Examination - Physical Exam General: Alert, In no apparent distress, Oriented x3 HEENT: Mucous membr. moist/pink Neck: Supple, JVD not distended Respiratory: Crackles/rales (Mild bibasilar crackles) Cardiovascular: Regular rate/rhythm, Normal S1 S2, Edema (2+ bilateral lower extremity pitting edema) Capillary refill: <2 Seconds Gastrointestinal: Normal bowel sounds, Soft and benign, Non-distended, No ascites Musculoskeletal: No swelling, No tenderness Integumentary: No rashes, No erythema Neurological: Normal speech, Normal strength at 5/5 x4 extr, Cranial nerves 3-12 intact - Studies Laboratory Data (last 24 hrs) 07/20/20 14:15: Sodium 143, Potassium 3.6, BUN 15, Creatinine 1.39 H, Glucose 234 H 07/20/20 14:15: WBC 10.7, Hgb 12.2 L, Hct 36.9 L, Plt Count 272 Microbiology Data (last 24 hrs): 07/20/20 14:15 Nasopharnyx Influenza Type A Antigen Screen - Final 07/20/20 14:15 Nasopharnyx Influenza Type B Antigen Screen - Final Assessment and Plan - Problems (Diagnosis) (1) CHF exacerbation Current Visit: Yes Status: Acute (2) Coronary artery disease Current Visit: Yes Status: Acute (3) COPD (chronic obstructive pulmonary disease) Current Visit: No Status: Chronic Qualifiers: COPD type: chronic bronchitis Chronic bronchitis type: unspecified Qualified Code(s): J42 - Unspecified chronic bronchitis (4) HTN (hypertension) Current Visit: No Status: Chronic Qualifiers: Hypertension type: essential hypertension Qualified Code(s): I10 - Essential (primary) hypertension - Plan Place patient under observation. Unknown EF. No recent echocardiogram on file. Trend troponin Will start Lasix 40 mg b.i.d. Obtain echocardiogram. Monitor intake and output Daily weight. Insulin sliding scale for glucose management. Continue home medications for CAD. - Advance Directives Does patient have a Living Will: Yes Does patient have a Durable POA for Healthcare: Yes
[2020-07-20 18:45] VITALS: BMI 22.6
[2020-07-20] MEDS: FUROSEMIDE 40 MG/4 ML VIAL IV SCH (18:48)
[2020-07-20] MEDS ORDERED: ALBUTEROL 2.5 MG/3 ML NEB SOL NEB PRN (18:48)
[2020-07-20] MEDS ORDERED: INSULIN -REGULAR HUMAN 50 UNIT/0.5 ML ML ONE (20:12)
[2020-07-20] MEDS: INSULIN -REGULAR HUMAN 50 UNIT/0.5 ML ML SQ SCH (21:00)
[2020-07-20 22:44] VITALS: O2SAT 95
[2020-07-21 05:20] VITALS: BP 155/65
[2020-07-21 06:03] LABS: Absolute Lymphocytes (CBC) 0.8 K/uL (0.7-4.9); Basophils % 0.2 % (0-1.3); Hematocrit 36.9 % (39.6-49.0); MPV 8.8 fL (7.6-11.3); RBC Red Blood Cell Count 4.17 M/uL (4.33-5.43)
[2020-07-21 06:23] LABS: Magnesium 2.8 mg/dL (1.8-2.4); Phosphorus 4.3 mg/dL (2.5-4.9); Potassium 4.3 mmol/L (3.5-5.1)
[2020-07-21 07:15] LABS: White Blood Cell Scan OK (OK)
[2020-07-21 07:16] LABS: Blood Morphology Comment NOTED (NOT SEEN); Platelet Estimate ADEQ
[2020-07-21] MEDS ORDERED: PNEUMOCOCCAL VACCINE 0.5 ML IMVAC ONE (08:00)
[2020-07-21] MEDS ORDERED: ENOXAPARIN 40 MG/0.4 ML SQ SCH (09:00)
[2020-07-21] MEDS: FUROSEMIDE 40 MG/4 ML VIAL IV SCH (09:12)
[2020-07-21] MEDS: INSULIN -REGULAR HUMAN 50 UNIT/0.5 ML ML SQ SCH (09:13)
[2020-07-21 09:36] VITALS: TEMP 97.8
--- NOTE | 2020-07-21 09:55 | P.DS ---
Admission Date: 07/20/20 Discharge Date: 07/21/20 Disposition: ROUTINE DISCHARGE Discharge Condition: FAIR Reason for Admission: Shortness of breath - Problems (1) CHF exacerbation Status: Acute (2) Coronary artery disease Status: Acute (3) COPD (chronic obstructive pulmonary disease) Status: Chronic Qualifiers: COPD type: chronic bronchitis Chronic bronchitis type: unspecified Qualified Code(s): J42 - Unspecified chronic bronchitis (4) HTN (hypertension) Status: Chronic Qualifiers: Hypertension type: essential hypertension Qualified Code(s): I10 - Essential (primary) hypertension Brief History of Present Illness: 85-year-old gentleman with a history of congestive heart failure, coronary artery disease presented emergency department with a complaint of shortness of breath which has progressed form shortness of breath with exertion to shortness of breath at rest and orthopnea. Patient also reports significant bilateral lower extremity swelling. Chest x-ray done in the emergency department demonstrated mild bilateral pulmonary infiltrates suggestive of vascular congestion. His initial troponin is negative. BNP significantly elevated. Patient hospitalized for further management of CHF exacerbation. Hospital Course: Patient placed under observation on the medical floor. He was treated with IV Lasix. His shortness of breath resolved the diuretics. His bilateral lower extremity swelling also improved significantly with the diuresis. His blood pressure and renal function were stable with IV Lasix. His troponin was mildly elevated but trended flat and not ACS. Patient is currently asymptomatic and deemed stable for discharge. He is prescribed Lasix 40 mg daily as maintenance diuretics. Vital Signs/Physical Exam: Temp Pulse Resp BP Pulse Ox 97.8 F 85 18 155/65 H 93 07/21/20 08:00 07/21/20 09:12 07/21/20 08:00 07/21/20 09:12 07/21/20 08:00 General: Alert, In no apparent distress HEENT: Mucous membr. moist/pink Neck: JVD not distended Respiratory: Clear to auscultation bilaterally, Normal air movement Cardiovascular: Regular rate/rhythm, Normal S1 S2 Gastrointestinal: Soft and benign, Non-distended Musculoskeletal: No swelling Integumentary: No rashes Neurological: Normal strength at 5/5 x4 extr Laboratory Data at Discharge: WBC 11.4 K/uL (4.3-10.9) H 07/21/20 05:44 Hgb 12.5 g/dL (13.6-17.9) L 07/21/20 05:44 Hct 36.9 % (39.6-49.0) L 07/21/20 05:44 Plt Count 265 K/uL (152-406) 07/21/20 05:44 Sodium 141 mmol/L (136-145) 07/21/20 05:44 Potassium 4.3 mmol/L (3.5-5.1) 07/21/20 05:44 BUN 22 mg/dL (7-18) H 07/21/20 05:44 Creatinine 1.49 mg/dL (0.55-1.3) H 07/21/20 05:44 Glucose 257 mg/dL (74-106) H 07/21/20 05:44 Phosphorus 4.3 mg/dL (2.5-4.9) 07/21/20 05:44 Magnesium 2.8 mg/dL (1.8-2.4) H 07/21/20 05:44 Troponin I 0.05 ng/mL (0.0-0.045) H 07/20/20 23:46 Home Medications: Calcium Carbonate [Calcium] 1 tab PO DAILY 11/19/18 Donepezil HCl 1 tab PO BEDTIME 11/19/18 Ferrous Sulfate [Ferrous Sulfate*] 1 tab PO BID 11/19/18 Insulin Detemir [Levemir Flextouch] 18 units SQ BID 11/19/18 Losartan Potassium [Cozaar*] 1 tab PO DAILY 11/19/18 Magnesium Oxide [Magnesium] 1 tab PO DAILY 11/19/18 Pantoprazole [Protonix Tab*] 40 mg PO BID #60 tab 11/20/18 Furosemide [Lasix] 40 mg PO DAILY #30 tab 07/21/20 New Medications: Furosemide [Lasix] 40 mg PO DAILY #30 tab Diet: ADA Activity: Ad kem Followup: Finn Hull DO [Primary Care Provider] - 1 Week
--- NOTE | 2020-07-23 16:17 | EKG ---
Test Date: 2020-07-20 Test Time: 14:06:36 Telephone Worker: VANESSA MEASUREMENT RESULTS: Intervals: Rate: 72 MO: QRSD: 94 QT: 420 QTc: 459 Robert: P: MO: QRS: 76 T: 84 INTERPRETIVE STATEMENTS: Atrial fibrillation Minimal voltage criteria for LVH, may be normal variant Nonspecific ST and T wave abnormality Abnormal ECG Compared to ECG 02/21/2012 07:38:28 Left ventricular hypertrophy now present ST (T wave) deviation now present Sinus bradycardia no longer present Electronically Signed On 07-23-20 16:10:20 IT INTERN by Romero Oliveros
== END 2020-07-21 12:28 | disposition home or self-care (01) ==
LOC: ER 13:44 → ERHOLD 17:19 → 2ND 21:03
PROVIDERS: ADMIT Internal Medicine; ATTEND Internal Medicine
DX: I11.0 Hypertensive heart disease with heart failure (principal); I50.9 Heart failure, unspecified; I25.10 Atherosclerotic heart disease of native coronary artery without angina pectoris; J44.9 Chronic obstructive pulmonary disease, unspecified; Z20.828 Contact with and (suspected) exposure to other viral communicable diseases; R94.31 Abnormal electrocardiogram [ECG] [EKG]; E11.9 Type 2 diabetes mellitus without complications; Z79.4 Long term (current) use of insulin; Z95.1 Presence of aortocoronary bypass graft; Z87.891 Personal history of nicotine dependence; Z95.5 Presence of coronary angioplasty implant and graft; Z23 Encounter for immunization
CPT/HCPCS: 93005; 87040 ×2; 85025 ×2; 80048 ×2; 36415; 83735; 84100; 82947 ×4; 83605; 84484 ×2; 82728; 84145; 83880 ×2; 87804 ×2; 71045; 90471; 90732; 96375; 96374; 99285; U0003; J1940 ×2; J1650; J2930; G0378 ×3; G0009

== ENCOUNTER 2022-02-18 10:58 | Inpatient (IN) | payer OTHER ==
--- NOTE | 2022-02-18 12:20 | RAD REPORT ---
EXAM DESCRIPTION: CT - Head C Spine Cap Wo Con - 02/18/2022 11:53 am CLINICAL HISTORY: Head and neck injury with chest and abdominal pain status post fall TECHNIQUE: Computed axial tomography of head, neck, chest, abdomen and pelvis obtained. IV and oral contrast not requested. Coronal and sagittal reconstruction performed. All CT scans are performed using dose optimization technique as appropriate and may include automated exposure control or mA/KV adjustment according to patient size. COMPARISON: None FINDINGS: An intracranial bleed is not seen. The ventricles are normal in caliber. An extra-axial fluid collection is not noted. . Fluid within the sinuses/mastoids is not seen. A cervical fracture is not seen. No dislocation is noted. Bilateral carotid arterial stents. 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 A mediastinal hematoma is not noted. Small pleural effusions. No pericardial effusion. COPD. No pulmo nary contusion The liver,spleen, pancreas, adrenals,kidneys and bladder do not demonstrate a traumatic injury Atherosclerosis IMPRESSION: No acute intracranial abnormality is seen. A cervical fracture is not visualized. If the patient continues have symptoms to suggest intracrania l/spinal cord pathology MRI be recommended No traumatic abnormality involving the chest/abdomen/pelvis.
[2022-02-18 12:43] LABS: Absolute Lymphocytes (CBC) 0.9 K/uL (0.7-4.9); Hematocrit 33.2 % (39.6-49.0); Lymphocytes % 6.8 % (15.3-44.8); MCV 84.6 fL (80-100); RBC Red Blood Cell Count 3.92 M/uL (4.33-5.43)
[2022-02-18 12:43] LABS: Protime INR 1.05
[2022-02-18 13:09] LABS: ALT/SGPT 21 U/L (12-78); AST/SGOT 15 U/L (15-37); Albumin 3.3 g/dL (3.4-5.0); Alkaline Phosphatase 77 U/L (45-117); BUN Blood Urea Nitrogen 38 mg/dL (7-18); Bicarbonate 28 mmol/L (21-32); Bilirubin Total 0.4 mg/dL (0.2-1.0); Glomerular Filtration Rate 43 ml/min (=/>90); Magnesium 2.7 mg/dL (1.8-2.4); NT PRO-BNP 6645 pg/mL (<450); Potassium 4.3 mmol/L (3.5-5.1); Protein, Total 6.8 g/dL (6.4-8.2); Sodium Level 145 mmol/L (136-145); Troponin High Sensitivity 45.6 pg/mL (<58.9)
[2022-02-18 13:59] LABS: Bilirubin Direct < 0.1 mg/dL (0-0.2)
[2022-02-18 14:00] LABS: Glucose Level 35 mg/dL (74-106)
[2022-02-18] MEDS ORDERED: DEXTROSE 10%-WATER 500 ML IV ONE (14:09)
--- NOTE | 2022-02-18 14:14 | RAD REPORT ---
EXAM DESCRIPTION: Gilda Single View02/18/2022 2:02 pm CLINICAL HISTORY: Cough COMPARISON: 2019 FINDINGS: Mild right basilar opacities Heart is normal size Lungs are hyperaerated IMPRESSION: Mild right basilar opacities may indicate pneumonia or pneumonitis
--- NOTE | 2022-02-18 14:19 | RAD REPORT ---
EXAM DESCRIPTION: RAD - Knee Left 3 View - 02/18/2022 2:03 pm CLINICAL HISTORY: Left knee pain FINDINGS: No fracture or dislocation is seen. Chondrocalcinosis. 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
--- NOTE | 2022-02-18 15:37 | ER ---
Nurse's Notes [facility] Name: Kyle De Guzman Age: 87 yrs Sex: Male : 1935 Arrival Date: 02/18/2022 Time: 11:00 Bed 23 Private MD: Yosef Underwood Diagnosis: Weakness;Pneumonia, unspecified organism;Hypoglycemia, unspecified Presentation: 02/18 11:09 Chief complaint: Spouse and/or significant other states: Increased falls and confusion ss that have been ongoing x 1 month. .Daughter reports that "for a some time" he gets short of breath upon exertion. states, "For the past 3 days, I noticed when I have to clean the toilet, his stools appear black.". Coronavirus screen: Client denies travel out of the [place] in the last 14 days. Coronavirus screen: Client presents with at least one sign or symptom that may indicate coronavirus-19. Ebola Screen: Patient denies exposure to infectious person. Patient denies travel to an Ebola-affected area in the 21 days before illness onset. No acute neurological deficit is noted. Pre-hospital glucose is not applicable to this patient. Initial Sepsis Screen: Does the patient meet any 2 criteria? No. Patient's initial sepsis screen is negative. Does the patient have a suspected source of infection? No. Patient's initial sepsis screen is negative. Risk Assessment: Do you want to hurt yourself or someone else? Patient reports no desire to harm self or others. Onset of symptoms is unknown. 11:09 Method Of Arrival: Wheelchair ss 11:09 Acuity: JAVI 3 ss Triage Assessment: 12:57 The onset of the patients symptoms was February 18, 2022 at 09:00. General: Appears in no mays apparent distress. Behavior is calm, cooperative. Stroke Activation: Symptom onset > 6 hours Physician: Stroke Attending; Name: ; Notified At: ; Arrived At: Physician: Chief Stroke Resident; Name: ; Notified At: ; Arrived At: Physician: Stroke Resident; Name: ; Notified At: ; Arrived At: Physician: ED Attending; Name: ; Notified At: ; Arrived At: Physician: ED Resident; Name: ; Notified At: ; Arrived At: Historical: - Allergies: 11:12 No Known Allergies; ss - PMHx: 11:12 COPD; Diabetes - IDDM; Hypertension; ss 11:12 possible CVA vs seizure; ss - Immunization history:: Client reports receiving the 2nd dose of the Covid vaccine. - Social history:: Smoking status: Patient/guardian denies using tobacco, but has a distant history of tobacco abuse. Screenin:56 Abuse screen: Denies threats or abuse. Denies injuries from another. Nutritional mays screening: No deficits noted. Tuberculosis screening: No symptoms or risk factors identified. Fall Risk None identified. Assessment: 12:56 VAN Scoring: Arm Drift: Patients demonstrates NO arm weakness. Patient is VAN Negative. mays Visual Disturbance: No visual disturbance noted. Aphasia: No aphasia noted. Neglect: No neglect noted. Patient has been NPO before screening. The patient is alert, and able to follow commands. The patient does not exhibit slurred or garbled speech. The patient is not exhibiting difficulty speaking. The patient does not exhibit difficulty understanding words. The patient is able to swallow own secretions with no drooling or need for suction. Patient tolerated one teaspoon of water. No drooling, immediate coughing, gurgling, or clearing of the throat was noted. The patient tolerated 90mL of water. No drooling, immediate coughing, gurgling, or clearing of the throat was noted. The patient passed the bedside swallow screening. Oral medications may be given as ordered. Contact Physician for further diet orders. TNKase (Tenecteplase) Screening:. Pain: Denies pain. Neuro: No deficits noted. Level of Consciousness is awake, alert, obeys commands, Oriented to person, place, time, situation, Filer And Sander are equal bilaterally Speech is normal, Reports dizziness, weakness. Vital Signs: 11:09 BP 123 / 52; Pulse 78; Resp 16; Temp 97.1(TE); Pulse Ox 95% ; Weight 74.84 kg; Height 6 ss ft. 0 in. (182.88 cm); Pain 0/10; 13:54 BP 176 / 57; Pulse 71; Resp 16; Pulse Ox 95% ; mays 20:13 BP 125 / 67; Pulse 77; Resp 17; Pulse Ox 98% on R/A; ll3 11:09 Body Mass Index 22.38 (74.84 kg, 182.88 cm) NIH Stroke Scale Scores: 11:15 NIHSS Score: 0 jh7 12:56 NIHSS Score: 0 mays ED Course: 11:00 Patient arrived in ED. mr 11:00 DelfinoYosef donahue is Private Physician. mr 11:12 Triage completed. ss 11:12 Arm band placed on right wrist. ss 11:14 Rebecca Lovett FNP is PHCP. 7 11:14 Annemarie Dugan MD is Attending Physician. 7 11:44 Valencia Briones, PATRICIA is Primary Nurse. mays 11:55 CT Traumagram (Head C Spine CAP wo con) In Process Unspecified. EDMS 12:56 Patient has correct armband on for positive identification. Bed in low position. mays 12:56 No provider procedures requiring assistance completed. Inserted saline lock: 20 gauge mays in left antecubital area, using aseptic technique. 13:57 Type And Screen Sent. mays 14:04 XRAY Chest (1 view) In Process Unspecified. EDMS 14:04 XRAY Knee LEFT 3 view In Process Unspecified. EDMS 15:36 Mayela Sauceda MD is Hospitalizing Provider. [facility] 19:58 SARS RAPID Sent. [facility] 20:04 RAPID. [facility] 22:24 Patient admitted, IV remains in place. ll3 Administered Medications: 14:14 Drug: D50W 50 ml Route: IVP; Site: left antecubital; mays 14:14 Follow up: Response: No adverse reaction 15:51 Drug: AZITHromycin 500 mg Route: IVPB; Infused Over: 1 hrs; Site: left antecubital; mays Medication: 12:56 VIS not applicable for this client. mays Outcome: 15:37 Decision to Hospitalize by Provider. [facility] 22:24 Admitted to Med/surg accompanied by nurse, via wheelchair, room 203, with chart, Report ll3 called to PATRICIA Kingsley 22:24 Condition: stable 22:24 Instructed on the need for admit, Demonstrated understanding of instructions. 22:25 Patient left the ED. ll3 NIH Stroke Scale - NIH Stroke Score Date: 02/18/2022 Time: 11:15 Total Score = 0 1a. Level of Consciousness (LOC) - 0(Alert) 1b. Level of Consciousness (LOC) (Month \\T\\ Age) - 0(Both) 1c. LOC Commands (Open \\T\\ Closes Eyes/Job Setter Honing) - 0(Both) 2. Best Gaze (Lateral Gaze Paresis) - 0(Normal) 3. Visual Field Loss - 0(No visual loss) 4. Facial Palsy - 0(Normal) 5a. Left Arm: Motor (10-second hold) - 0(No drift) 5b. Right Arm: Motor (10-second hold) - 0(No drift) 6a. Left Leg: Motor (5-second hold - always test supine) - 0(No drift) 6b. Right Leg: Motor (5-second hold - always test supine) - 0(No drift) 7. Limb Ataxia (finger/nose \\T\\ heel/chaudhary - test with eyes open) - 0(Absent) 8. Sensory Loss (pinprick arms/legs/face) - 0(Normal) 9. Best Language: Aphasia (description/naming/reading) - 0(No aphasia) 10. Dysarthria (speech clarity - read or repeat words) - 0(Normal) 11. Extinction and Inattention (visual/tactile/auditory/spatial/personal) - 0(No abnormality) Initials: [facility] NIH Stroke Scale - NIH Stroke Score Date: 02/18/2022 Time: 12:56 Total Score = 0 1a. Level of Consciousness (LOC) - 0(Alert) 1b. Level of Consciousness (LOC) (Month \\T\\ Age) - 0(Both) 1c. LOC Commands (Open \\T\\ Closes Eyes/Job Setter Honing) - 0(Both) 2. Best Gaze (Lateral Gaze Paresis) - 0(Normal) 3. Visual Field Loss - 0(No visual loss) 4. Facial Palsy - 0(Normal) 5a. Left Arm: Motor (10-second hold) - 0(No drift) 5b. Right Arm: Motor (10-second hold) - 0(No drift) 6a. Left Leg: Motor (5-second hold - always test supine) - 0(No drift) 6b. Right Leg: Motor (5-second hold - always test supine) - 0(No drift) 7. Limb Ataxia (finger/nose \\T\\ heel/chaudhary - test with eyes open) - 0(Absent) 8. Sensory Loss (pinprick arms/legs/face) - 0(Normal) 9. Best Language: Aphasia (description/naming/reading) - 0(No aphasia) 10. Dysarthria (speech clarity - read or repeat words) - 0(Normal) 11. Extinction and Inattention (visual/tactile/auditory/spatial/personal) - 0(No abnormality) Initials: tabatha Signatures: Dispatcher [employer] LOCODonya Garza Alexandra Delgadillo, RN RN Annika Tripathi [facility] Sarah Guzman RN RN ll3 Taryn-StagerValencia RN RN ha Hadash, Jennifer, LABORATORY CLERK LABORATORY CLERK 7 Corrections: (The following items were deleted from the chart) 11:13 11:12 PMHx: "one seizure in the past"; [facility]
--- NOTE | 2022-02-18 15:37 | EDPHYS ---
Physician Documentation [facility] Name: Kyle De Guzman Age: 87 yrs Sex: Male : 1935 Arrival Date: 02/18/2022 Time: 11:00 Bed 23 Private MD: Yosef Underwood ED Physician Annemarie Dugan HPI: 02/18 11:15 This 87 yrs old Male presents to ER via Wheelchair with complaints of Confusion, jh7 increased falls. 11:15 Onset: The symptoms/episode began/occurred 1 month(s) ago. Patient presents for jh7 increased confusion, multiple falls, shortness of breath with exertion, and productive cough over the past month. also reports that the patient has had black stools over the past 3 days. His PCP is Dr. Underwood. He is not on any blood thinners. Dr. Pop is his credit charge authorizer. History of CHF, stroke, diabetes, open heart surgery with multiple stents in 2004. The patient is calm and in no distress at this time.. Historical: - Allergies: 11:12 No Known Allergies; ss - PMHx: 11:12 COPD; Diabetes - IDDM; Hypertension; ss 11:12 possible CVA vs seizure; ss - Immunization history:: Client reports receiving the 2nd dose of the Covid vaccine. - Social history:: Smoking status: Patient/guardian denies using tobacco, but has a distant history of tobacco abuse. ROS: 11:15 Constitutional: Negative for fever, chills, and weight loss, Eyes: Negative for injury, jh7 pain, redness, and discharge, ENT: Negative for injury, pain, and discharge, Neck: Negative for injury, pain, and swelling, Cardiovascular: Negative for chest pain, palpitations, and edema, Back: Negative for injury and pain, MS/Extremity: Negative for injury and deformity. 11:15 Respiratory: Positive for cough, Negative for shortness of breath, wheezing. 11:15 Abdomen/GI: Positive for black/tarry stool, Negative for abdominal pain, nausea, vomiting, and diarrhea, rectal pain, rectal bleeding. 11:15 Skin: Positive for abrasion(s), swelling, Negative for cellulitis, laceration(s). 11:15 Neuro: Positive for altered mental status, Negative for dizziness, gait disturbance, loss of consciousness, syncope. 11:15 All other systems are negative. Exam: 11:15 Constitutional: This is a well developed, well nourished patient who is awake, alert, jh7 and in no acute distress. ENT: Nares patent. No nasal discharge, no septal abnormalities noted. Tympanic membranes are normal and external auditory canals are clear. Oropharynx with no redness, swelling, or masses, exudates, or evidence of obstruction, uvula midline. Mucous membranes moist. Neck: Trachea midline, no thyromegaly or masses palpated, and no cervical lymphadenopathy. Supple, full range of motion without nuchal rigidity, or vertebral point tenderness. No Meningismus. Cardiovascular: Regular rate and rhythm with a normal S1 and S2. No gallops, murmurs, or rubs. Normal PMI, no JVD. No pulse deficits. Respiratory: Lungs have equal breath sounds bilaterally, clear to auscultation and percussion. No rales, rhonchi or wheezes noted. No increased work of breathing, no retractions or nasal flaring. Abdomen/GI: Soft, non-tender, with normal bowel sounds. No distension or tympany. No guarding or rebound. No evidence of tenderness throughout. Back: No spinal tenderness. No costovertebral tenderness. Full range of motion. 11:15 ECG was reviewed by the Attending Physician. 11:15 Musculoskeletal/extremity: ROM: intact in all extremities, Circulation is intact in all extremities. Sensation intact. 11:15 Skin: injury, abrasion(s), small abrasion noted, of the left leg. 11:15 Neuro: Orientation: to person, place, time \\T\\ situation. Mentation: is normal, Memory: is normal, immediate memory is intact, Motor: is normal, Sensation: is normal, Gait: not tested. Vital Signs: 11:09 BP 123 / 52; Pulse 78; Resp 16; Temp 97.1(TE); Pulse Ox 95% ; Weight 74.84 kg; Height 6 ss ft. 0 in. (182.88 cm); Pain 0/10; 13:54 BP 176 / 57; Pulse 71; Resp 16; Pulse Ox 95% ; mays 20:13 BP 125 / 67; Pulse 77; Resp 17; Pulse Ox 98% on R/A; ll3 11:09 Body Mass Index 22.38 (74.84 kg, 182.88 cm) ss NIH Stroke Scale Scores: 11:15 NIHSS Score: 0 [facility] 12:56 NIHSS Score: 0 MDM: 11:44 Patient medically screened. [facility] 16:00 Differential diagnosis: viral Infection, bacterial infection, bronchitis, pneumonia [facility] CVA, GI bleed. Data reviewed: vital signs, nurses notes, lab test result(s), EKG, radiologic studies, CT scan, plain films. Data interpreted: Pulse oximetry: is 95 %. Counseling: I had a detailed discussion with the patient and/or guardian regarding: the historical points, exam findings, and any diagnostic results supporting the discharge/admit diagnosis, the need for further work-up and treatment in the hospital. ED course: The patient was admitted under inpatient status to Dr. Sauceda. All questions from the family were answered. The patient remained stable throughout his ER visit.. 02/18 11:24 Order name: Basic Metabolic Panel; Complete Time: 14:05 [facility] 02/18 11:24 Order name: CBC with Diff; Complete Time: 12:57 [facility] 02/18 11:24 Order name: LFT's; Complete Time: 14:05 [facility] 02/18 11:24 Order name: Magnesium; Complete Time: 14:05 [facility] 02/18 11:24 Order name: NT PRO-BNP; Complete Time: 14:05 [facility] 02/18 11:24 Order name: PT-INR; Complete Time: 12:51 [facility] 02/18 11:24 Order name: Troponin HS; Complete Time: 14:05 [facility] 02/18 11:31 Order name: Lactate; Complete Time: 14:47 [facility] 02/18 12:50 Order name: Type And Screen [facility] 02/18 12:54 Order name: Type and Screen; Complete Time: 15:09 [facility] 02/18 14:17 Order name: SARS RAPID 02/18 15:20 Order name: Glucose, Ancillary Testing; Complete Time: 15:27 [facility] 02/18 17:11 Order name: [place]; Complete Time: 17:46 [facility] 02/18 11:24 Order name: CT Traumagram (Head C Spine CAP wo con); Complete Time: 12:32 [facility] 02/18 11:24 Order name: XRAY Chest (1 view); Complete Time: 14:47 [facility] 02/18 12:33 Order name: XRAY Knee LEFT 3 view; Complete Time: 14:47 [facility] 02/18 17:49 Order name: CBC with Automated Diff [facility] 02/18 17:49 Order name: CBC with Automated Diff [facility] 02/18 17:49 Order name: Comprehensive Metabolic Panel [facility] 02/18 17:49 Order name: Comprehensive Metabolic Panel [facility] 02/18 17:51 Order name: Lipid Profile [facility] 02/18 17:51 Order name: Magnesium [facility] 02/18 17:51 Order name: NT PRO-BNP [facility] 02/18 17:51 Order name: Procalcitonin [facility] 02/18 17:51 Order name: Chest Single View [facility] 02/18 17:51 Order name: Echo with Doppler [facility] 02/18 20:38 Order name: Glucose, Ancillary Testing [facility] 02/18 11:24 Order name: EKG; Complete Time: 11:26 [facility] 02/18 11:24 Order name: Cardiac monitoring; Complete Time: 12:55 [facility] 02/18 11:24 Order name: EKG - Nurse/Tech; Complete Time: 12:55 [facility] 02/18 11:24 Order name: IV Saline Lock; Complete Time: 12:55 [facility] 02/18 11:24 Order name: Labs collected and sent; Complete Time: 12:55 [facility] 02/18 11:24 Order name: O2 Per Protocol; Complete Time: 12:55 [facility] 02/18 11:24 Order name: O2 Sat Monitoring; Complete Time: 12:55 [facility] 02/18 15:10 Order name: Blood Glucose Level; Complete Time: 15:23 [facility] 02/18 17:23 Order name: Diet Regular; Complete Time: 17:24 02/18 17:49 Order name: Heart Healthy [facility] EC:15 Rate is 73 beats/min. Rhythm is regular. QRS [place] is Normal. [place] interval is normal. QRS jh7 interval is normal. QT interval is normal. No Q waves. T waves are Normal. No ST changes noted. Clinical impression: Normal ECG. Administered Medications: 14:14 Drug: D50W 50 ml Route: IVP; Site: left antecubital; mays 14:14 Follow up: Response: No adverse reaction mays 15:51 Drug: AZITHromycin 500 mg Route: IVPB; Infused Over: 1 hrs; Site: left antecubital; mays Disposition: 17:45 Co-signature as Attending Physician, Annemarie Dugan MD STAFF ATTESTATION STATEMENT I sd2 was immediately available on-site in the Emergency Department for consultation in the care of the patient. Annemarie Dugan MD. Disposition Summary: 02/18/22 15:37 Hospitalization Ordered Hospitalization Status: Inpatient Admission [facility] Provider: Mayela Sauceda [facility] Location: Telemetry/MedSurg (Inpatient) [facility] Condition: Stable [facility] Problem: new [facility] Symptoms: are unchanged [facility] Bed/Room Type: Standard [facility] Room Assignment: 203(02/18/22 21:37) Diagnosis - Weakness [facility] - Pneumonia, unspecified organism [facility] - Hypoglycemia, unspecified [facility] Forms: - Medication Reconciliation Form [facility] - SBAR form [facility] NIH Stroke Scale - NIH Stroke Score Date: 02/18/2022 Time: 11:15 Total Score = 0 1a. Level of Consciousness (LOC) - 0(Alert) 1b. Level of Consciousness (LOC) (Month \\T\\ Age) - 0(Both) 1c. LOC Commands (Open \\T\\ Closes Eyes/Enlisted Aircrew/Aerial Observer/Gunner) - 0(Both) 2. Best Gaze (Lateral Gaze Paresis) - 0(Normal) 3. Visual Field Loss - 0(No visual loss) 4. Facial Palsy - 0(Normal) 5a. Left Arm: Motor (10-second hold) - 0(No drift) 5b. Right Arm: Motor (10-second hold) - 0(No drift) 6a. Left Leg: Motor (5-second hold - always test supine) - 0(No drift) 6b. Right Leg: Motor (5-second hold - always test supine) - 0(No drift) 7. Limb Ataxia (finger/nose \\T\\ heel/chaudhary - test with eyes open) - 0(Absent) 8. Sensory Loss (pinprick arms/legs/face) - 0(Normal) 9. Best Language: Aphasia (description/naming/reading) - 0(No aphasia) 10. Dysarthria (speech clarity - read or repeat words) - 0(Normal) 11. Extinction and Inattention (visual/tactile/auditory/spatial/personal) - 0(No abnormality) Initials: [facility] NIH Stroke Scale - NIH Stroke Score Date: 02/18/2022 Time: 12:56 Total Score = 0 1a. Level of Consciousness (LOC) - 0(Alert) 1b. Level of Consciousness (LOC) (Month \\T\\ Age) - 0(Both) 1c. LOC Commands (Open \\T\\ Closes Eyes/Enlisted Aircrew/Aerial Observer/Gunner) - 0(Both) 2. Best Gaze (Lateral Gaze Paresis) - 0(Normal) 3. Visual Field Loss - 0(No visual loss) 4. Facial Palsy - 0(Normal) 5a. Left Arm: Motor (10-second hold) - 0(No drift) 5b. Right Arm: Motor (10-second hold) - 0(No drift) 6a. Left Leg: Motor (5-second hold - always test supine) - 0(No drift) 6b. Right Leg: Motor (5-second hold - always test supine) - 0(No drift) 7. Limb Ataxia (finger/nose \\T\\ heel/chaudhary - test with eyes open) - 0(Absent) 8. Sensory Loss (pinprick arms/legs/face) - 0(Normal) 9. Best Language: Aphasia (description/naming/reading) - 0(No aphasia) 10. Dysarthria (speech clarity - read or repeat words) - 0(Normal) 11. Extinction and Inattention (visual/tactile/auditory/spatial/personal) - 0(No abnormality) Initials: tabatha Signatures: Dispatcher [employer] EDMS Tamra Shin RN RN Alexandra Bhakta RN RN Au-Stager, PATRICIA [place] RN, Jennifer, OFFSET MACHINE OPERATOR OFFSET MACHINE OPERATOR [facility] Annemarie Dugan MD MD sd2 Corrections: (The following items were deleted from the chart) 11:13 11:12 PMHx: "one seizure in the past"; [facility] 12:54 11:36 ABO/RH TYPING+[id number] ordered. EDMS EDMS 21:37 15:37 [facility] jeny
[2022-02-18] MEDS ORDERED: NA CHLORIDE 0.9% 250 ML ONE (15:56)
[2022-02-18] MEDS ORDERED: AZITHROMYCIN 500 MG INJ IVPB ONE (15:56)
[2022-02-18] MEDS ORDERED: ACETAMINOPHEN 500 MG TAB PO PRN (17:45)
[2022-02-18] MEDS ORDERED: ONDANSETRON 4 MG/2 ML VIAL IV PRN (17:45)
[2022-02-18] MEDS ORDERED: MORPHINE 2 MG/ML SYR IV PRN (17:45)
--- NOTE | 2022-02-18 17:52 | P.HP ---
Certification for Inpatient Patient admitted to: Inpatient With expected LOS: >2 Midnights Patient will require the following post-hospital care: None Practitioner: I am a practitioner with admitting privileges, knowledge of patient current condition, hospital course, and medical plan of care. Services: Services provided to patient in accordance with Admission requirements found in Title 42 Section 412.3 of the Code of Federal Regulations Patient History Date of Service: 02/18/22 Reason for admission: Dyspnea; s/p fall; generalized weakness; pneumonia History of Present Illness: Pt is an 87yo who came to the hospital with altered mental status and multiple falls. Patient has not been feeling well for the last week. He does not really check his blood sugars but he was telling his they were okay. When they checked his blood sugars yesterday he was in the 30s. EMS was called to the house as the could not lift him off the floor. In the ER, he was confused to be admitted to the hospital for further evaluation. This most likely the etiology of patient's fall. Patient is much better after his blood sugars are improved. He is still weak and confused and he will be admitted to the hospital for further evaluation. Allergies No Known Allergies Allergy (Verified 02/20/12 16:47) Home Medications: Calcium Carbonate [Calcium] 1 tab PO DAILY 11/19/18 Donepezil HCl 1 tab PO BEDTIME 11/19/18 Ferrous Sulfate [Ferrous Sulfate*] 1 tab PO BID 11/19/18 Insulin Detemir [Levemir Flextouch] 18 units SQ BID 11/19/18 Losartan Potassium [Cozaar*] 1 tab PO DAILY 11/19/18 Magnesium Oxide [Magnesium] 1 tab PO DAILY 11/19/18 Pantoprazole [Protonix Tab*] 40 mg PO BID #60 tab 11/20/18 Furosemide [Lasix] 40 mg PO DAILY #30 tab 07/21/20 - Past Medical/Surgical History Diabetic: Yes -: DM -: HTN -: peptic ulcers -: triple bypass -: stents - Family History Father Medical History: Cancer - Social History Smoking Status: Never smoker Alcohol use: No CD- Drugs: No Caffeine use: No Review of Systems 10-point ROS is otherwise unremarkable Physical Examination - Vital Signs Temperature: 98 F Blood Pressure: 140/80 Pulse: 88 Respirations: 18 Pulse Ox (%): 95 - Physical Exam General: Alert, In no apparent distress, Oriented x2, Confused HEENT: Atraumatic, PERRLA, Mucous membr. moist/pink, EOMI, Sclerae nonicteric Neck: Supple, 2+ carotid pulse no bruit, No LAD, Without JVD or thyroid abnormality Respiratory: Clear to auscultation bilaterally, Normal air movement Cardiovascular: Regular rate/rhythm, Normal S1 S2 Gastrointestinal: Normal bowel sounds, Soft and benign, Non-distended, No tenderness Musculoskeletal: No clubbing, No swelling, No tenderness Integumentary: No rashes Neurological: Normal speech, Normal tone, Sensation intact, Cranial nerves 3-12 intact, Normal affect, Abnormal gait, Abnormal strength Lymphatics: No axilla or inguinal lymphadenopathy - Studies Laboratory Data (last 24 hrs) 02/18/22 12:25: WBC 13.4 H, Hgb 10.9 L, Hct 33.2 L, Plt Count 343 02/18/22 11:24: PT 11.6, INR 1.05 02/18/22 11:24: Sodium 145, Potassium 4.3, BUN 38 H, Creatinine 1.55 H, Glucose 35 L*, Magnesium 2.7 H, Total Bilirubin 0.4, AST 15, ALT 21, Alkaline Phosphatase 77 Microbiology Data (last 24 hrs): 02/18/22 17:11 Stool Occult Blood - Final Assessment & Plan - Problems (Diagnosis) (1) Status post fall Current Visit: Yes Status: Acute (2) Weakness Current Visit: Yes Status: Acute (3) Hypoglycemia Current Visit: Yes Status: Acute (4) CHF exacerbation Current Visit: No Status: Chronic (5) Coronary artery disease Current Visit: No Status: Chronic (6) COPD (chronic obstructive pulmonary disease) Current Visit: No Status: Chronic Qualifiers: (7) Diabetes mellitus Current Visit: No Status: Chronic Qualifiers: Diabetes mellitus type: type 2 (8) HTN (hypertension) Current Visit: No Status: Chronic (9) S/P triple vessel bypass Current Visit: No Status: Chronic - Plan PLAN: 1. Accuchecks to monitor BS 2. Continue with abx 3. PT 4. IV hydration 5. OOB and ambulate 6. Repeat CXR Discharge Plan: Home Plan to discharge in: Greater than 2 days - Advance Directives Does patient have a Living Will: Yes Does patient have a Durable POA for Healthcare: Yes Critical Care: No Time Spent Managing PTS Care (In Minutes): 45
[2022-02-18] MEDS ORDERED: D5W 1,000 ML IV SCH ×2 (18:00)
[2022-02-18 20:21] LABS: SARS-CoV-2 Antigen Rapid Res Negative (Negative)
[2022-02-18] MEDS ORDERED: D5W 1,000 ML IV ONE (20:29)
[2022-02-18] MEDS: DONEPEZIL HCL 5 MG TAB PO SCH (22:31)
[2022-02-19] MEDS ORDERED: PIPER TAZO 2.25 GM in NA CHLORIDE 0.9% 50 ML IV SCH (01:00)
[2022-02-19] MEDS: FUROSEMIDE 20 MG/ 2ML VIAL IV SCH ×3 (01:43→17:07)
[2022-02-19] MEDS: PIPER TAZO 3.375 GM in NA CHLORIDE 0.9% 100 ML IV SCH ×3 (01:43→17:08)
[2022-02-19 02:29] LABS: Urine Bilirubin Negative (Negative); Urine Blood Trace-lysed (Negative); Urine Clarity Clear (Clear); Urine Color Yellow (Yellow); Urine Glucose Negative (Negative); Urine Protein 2+ (Negative); Urine Urobilinogen 0.2 mg/dL (0.2-1.0); Urine pH 5.5 (5.0-7.0)
[2022-02-19 03:12] LABS: Urine Bacteria <20 /HPF (<20); Urine Mucus 2+ /HPF (None Seen); Urine RBC <5 /HPF (None Seen)
[2022-02-19 04:48] LABS: Absolute Lymphocytes (CBC) 1.1 K/uL (0.7-4.9); Lymphocytes % 10.2 % (15.3-44.8); MCV 84.6 fL (80-100); RBC Red Blood Cell Count 3.67 M/uL (4.33-5.43)
[2022-02-19 05:02] LABS: Albumin 2.9 g/dL (3.4-5.0); Bilirubin Total 0.4 mg/dL (0.2-1.0); Magnesium 2.6 mg/dL (1.8-2.4); Potassium 4.3 mmol/L (3.5-5.1); Protein, Total 6.4 g/dL (6.4-8.2)
--- NOTE | 2022-02-19 07:28 | RAD REPORT ---
EXAM DESCRIPTION: RAD - Chest Single View - 02/19/2022 6:56 am CLINICAL HISTORY: pneumonia COMPARISON: Chest Single View dated 02/18/2022; Chest Single View dated 07/20/2020; Chest Pa And Lat (2 Views) dated 06/18/2018; Chest Pa And Lat (2 Views) dated 01/05/2016 FINDINGS: Lines: None. Lungs: Persistent airspace opacities at the right lung base. Other scattered reticulonodular opacitie s noted. Pleural: No significant pleural effusions or pneumothorax. Cardiac: The heart size is within normal limits. Bones: No acute fractures. Other: IMPRESSION: Bilateral airspace disease, particular at the right lung base, is similar to 02/18/2022.
--- NOTE | 2022-02-19 14:12 | P.PN ---
Subjective Date of Service: 02/19/22 Subjective: No new changes, No C/O voiced, Improving patient is clinically feeling much better. Patient is more awake and alert. He was able to ambulate to the bathroom with assistance. Will get physical therapy evaluation. He should be stable for discharge if the blood sugars r emained stable. A1c level pending. Will get home health arranged for physical therapy and nursing care. Anticipate discharge home in the morning. Review of Systems 10-point ROS is otherwise unremarkable Physical Examination - Vital Signs Temperature: 98 F Blood Pressure: 140/80 Pulse: 88 Respirations: 18 Pulse Ox (%): 95 - Physical Exam General: Alert, In no apparent distress, Oriented x3 HEENT: Atraumatic, PERRLA, EOMI Neck: Supple, JVD not distended Respiratory: Clear to auscultation bilaterally, Normal air movement Cardiovascular: Regular rate/rhythm, Normal S1 S2 Gastrointestinal: Normal bowel sounds, No tenderness Musculoskeletal: No tenderness Integumentary: No rashes Neurological: Normal speech, Normal tone, Normal affect Lymphatics: No axilla or inguinal lymphadenopathy - Studies Microbiology Data (last 24 hrs): 02/18/22 17:11 Stool Occult Blood - Final Medications List Reviewed: Yes Assessment & Plan - Problems (Diagnosis) (1) Status post fall Current Visit: Yes Status: Acute (2) Weakness Current Visit: Yes Status: Acute (3) Hypoglycemia Current Visit: Yes Status: Acute (4) CHF exacerbation Current Visit: No Status: Chronic (5) Coronary artery disease Current Visit: No Status: Chronic (6) COPD (chronic obstructive pulmonary disease) Current Visit: No Status: Chronic Qualifiers: (7) Diabetes mellitus Current Visit: No Status: Chronic Qualifiers: Diabetes mellitus type: type 2 (8) HTN (hypertension) Current Visit: No Status: Chronic (9) S/P triple vessel bypass Current Visit: No Status: Chronic - Plan PLAN: 1. Accuchecks to monitor BS 2. Continue with abx 3. PT 4. IV hydration 5. OOB and ambulate 6. Repeat CXR 7. MRI of brain 8. Arrange for outpatient physical therapy and nursing care at discharge 9. GI and DVT prophylaxis Anticipate discharge home tomorrow if he is doing well with physical therapy and once home health is arranged. Discharge Plan: Home Plan to discharge in: 24 Hours - Advance Directives Does patient have a Living Will: Yes Does patient have a Durable POA for Healthcare: Yes - Code Status/Comfort Care Code Status Assessed: Yes Code Status: Full Code Critical Care: No Time Spent Managing PTS Care (In Minutes): 35
[2022-02-19] MEDS ORDERED: PIPER TAZO 3.375 GM in NA CHLORIDE 0.9% 100 ML IV SCH (18:15)
[2022-02-19] MEDS ORDERED: FUROSEMIDE 20 MG/ 2ML VIAL IV SCH (20:00)
[2022-02-19] MEDS: DONEPEZIL HCL 5 MG TAB PO SCH (20:16)
[2022-02-19] MEDS: INSULIN GLARGINE 100 UNIT/ML SQ SCH (20:16)
[2022-02-20] MEDS: PIPER TAZO 3.375 GM in NA CHLORIDE 0.9% 100 ML IV SCH ×2 (00:26→09:00)
[2022-02-20] MEDS: FUROSEMIDE 20 MG/ 2ML VIAL IV SCH ×2 (00:27→10:07)
[2022-02-20 04:43] VITALS: O2SAT 95
[2022-02-20 05:32] VITALS: BMI 22.5
[2022-02-20 06:41] LABS: Absolute Lymphocytes (CBC) 1.5 K/uL (0.7-4.9); Hematocrit 30.5 % (39.6-49.0); Lymphocytes % 12.9 % (15.3-44.8); MCV 83.3 fL (80-100); RBC Red Blood Cell Count 3.67 M/uL (4.33-5.43)
[2022-02-20 06:58] LABS: Magnesium 2.5 mg/dL (1.8-2.4)
--- NOTE | 2022-02-20 07:45 | RAD REPORT ---
EXAM DESCRIPTION: Gilda Single View02/20/2022 7:02 am CLINICAL HISTORY: Chest pain COMPARISON: February 19, 2022 FINDINGS: Mild right basilar opacity is unchanged. Remainder lungs appear clear of acute infiltrate. Heart is normal size. Postsurgical changes involve chest IMPRESSION: Mild right basilar opacity without significant change probably pneumonia
[2022-02-20] MEDS: INSULIN GLARGINE 100 UNIT/ML SQ SCH (09:00)
--- NOTE | 2022-02-20 09:41 | RAD REPORT ---
EXAM DESCRIPTION: MRI - Brain Wo Cont - 02/20/2022 9:01 am CLINICAL HISTORY: Confusion/alteration of consciousness/fall COMPARISON: 2018 MRI TECHNIQUE: Axial, sagittal, and coronal magnetic resonance images of the brain were obtained. FINDINGS: Mioderate signal within periventricular, deep and subcortical white matter probably ischem ic changes secondary to small vessel disease Small area of abnormal signal left cerebrum probably old infarction. Diffusion-weighted/ADC mapping does not reveal evidence of acute infarction. The ventricles are normal caliber. An extra-axial fluid collection is not noted. Mild cerebral atrophy Fluid within the sinuses/mastoids is not seen IMPRESSION: No acute intracranial abnormality noted
--- NOTE | 2022-02-20 10:42 | P.DS ---
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 Kyle De Guzman is a pleasant 87-year-old male with a past medical history significant for type 2 diabetes mellitus, chronic kidney disease stage III, chronic congestive heart failure, coronary artery disease s/p CABG, chronic obstructive pulmonary disease, and hypertension who was admitted to the [facility] on 02/18/2022 for altered mental status. Upon further evaluation, he was found to have a glucose of 35. He was admitted to the Medicine service for further evaluation. His insulin was held and he was treated with as needed dextrose, with improvement of his blood glucoses. As his glucose readings returned within normal limits, his mentation also improved significantly. He was also found to have a mild CHF exacerbation as well as a possible community-acquired pneumonia, for which he was treated with furosemide and piperacillintazobactam, respectively. Additionally, he had a mild acute kidney injury from 1.53 to 1.84, which was likely secondary to furosemide. Although, I would have preferred to observe him for one more day and arrange for home health with physical therapy, he stated that he really wishes to be discharged home and does not wish to stay in the hospital any longer. He stated that he wishes to be discharged home despite my recommendation of observation for on additional day. He states that his daughter is a nurse and will be stayin g at home with him. I discussed a plan of care in detail between him, his , and his daughter (Ms. Corey). I advised that they schedule a follow-up appointment with LIZY Underwood this week to repeat his BMP. Until then, he was advised to hold any further dosing of furosemide and losartan. I have also provided him with a 7-day course of cefdinir + doxycycline for his possible community-acquired pneumonia. I have prescribed low-dose amlodipine 2.5 mg for his hypertension. They were all in agreement with this plan and agreed to schedule a follow-up appointment. Physical therapy will evaluate him today prior to discharge, and case management will attempt to assist him with arranging home health. I have also recommended that he monitor his glucose levels at home every 4-6 hours and to drink apple or orange juice for any value <80. On 02/20/2022, he was seen on morning rounds and deemed medically stable for discharge. He was discharged with instructions to schedule a follow-up appointment with his PCP (LIZY Underwood). He was provided prescriptions for cefdinir, doxycylcine, amlodipine, and glucose test strips. He and his family members were given the opportunity to ask questions and reported no further questions. Furthermore, all questions were answered to the best of my ability. Today, I personally spent 35 minutes on his case, of which greater than 50% of the time was spent in patient education, counseling, and coordination of care as described above. Vital Signs/Physical Exam: Temp Pulse Resp BP Pulse Ox 98.6 F 81 16 187/64 H 96 02/20/22 08:00 02/20/22 10:07 02/20/22 08:00 02/20/22 10:07 02/20/22 08:00 General: Alert, In no apparent distress, Oriented x3, Cooperative HEENT: Atraumatic, PERRLA, Mucous membr. moist/pink, EOMI, Sclerae nonicteric Neck: Supple, JVD not distended Respiratory: Clear to auscultation bilaterally, Normal air movement Cardiovascular: No edema, Regular rate/rhythm, Normal S1 S2, No gallops, No rubs, No murmurs Gastrointestinal: Normal bowel sounds, Soft and benign, No tenderness, No rebound, No guarding Musculoskeletal: No clubbing Integumentary: No rashes Neurological: Normal gait, Cranial nerves 3-12 intact, Normal affect Laboratory Data at Discharge: WBC 12.0 K/uL (4.3-10.9) H 02/20/22 06:28 Hgb 10.3 g/dL (13.6-17.9) L 02/20/22 06:28 Hct 30.5 % (39.6-49.0) L 02/20/22 06:28 Plt Count 311 K/uL (152-406) 02/20/22 06:28 PT 11.6 SECONDS (9.5-12.5) 02/18/22 11:24 INR 1.05 02/18/22 11:24 Sodium 144 mmol/L (136-145) 02/20/22 06:28 Potassium 4.0 mmol/L (3.5-5.1) 02/20/22 06:28 BUN 33 mg/dL (7-18) H 02/20/22 06:28 Creatinine 1.84 mg/dL (0.55-1.3) H 02/20/22 06:28 Glucose 72 mg/dL (74-106) L 02/20/22 06:28 Magnesium 2.5 mg/dL (1.8-2.4) H 02/20/22 06:28 Total Bilirubin 0.4 mg/dL (0.2-1.0) 02/19/22 04:19 AST 15 U/L (15-37) 02/19/22 04:19 ALT 16 U/L (12-78) 02/19/22 04:19 Alkaline Phosphatase 71 U/L (45-117) 02/19/22 04:19 Triglycerides 77 mg/dL (<150) 02/19/22 04:19 Cholesterol 140 mg/dL (<200) 02/19/22 04:19 HDL Cholesterol 43 mg/dL (40-60) 02/19/22 04:19 Cholesterol/HDL Ratio 3.26 02/19/22 04:19 Home Medications: RX: Calcium Carbonate [Calcium] 1 tab PO DAILY 11/19/18 RX: Donepezil HCl 1 tab PO BEDTIME 11/19/18 RX: Ferrous Sulfate [Ferrous Sulfate*] 1 tab PO BID 11/19/18 RX: Magnesium Oxide [Magnesium] 1 tab PO DAILY 11/19/18 RX: Pantoprazole [Protonix Tab*] 40 mg PO BID #60 tab 11/20/18 Blood Sugar Diagnostic [Test Strips] 1 each Q6HR #120 strip 02/20/22 Cefdinir [Cefdinir*] 300 mg PO BID #14 cap 02/20/22 RX: Amlodipine [Norvasc*] 2.5 mg PO DAILY #14 tab 02/20/22 RX: Doxycycline Monohydrate 100 mg PO BID #14 02/20/22 New Medications: Blood Sugar Diagnostic [Test Strips] 1 each MC Q6HR #120 strip Cefdinir [Cefdinir*] 300 mg PO BID #14 cap RX: Doxycycline Monohydrate 100 mg PO BID #14 RX: Amlodipine [Norvasc*] 2.5 mg PO DAILY #14 tab Diet: ADA Followup: Yosef Underwood PA [Primary Care Provider] - Time spent managing pt's care (in minutes): 35
--- NOTE | 2022-02-20 12:25 | EKG ---
Test Date: 2022-02-18 Test Time: 12:32:55 Consumer Loan Officer: ANDREA MEASUREMENT RESULTS: Intervals: Rate: 72 NC: 148 QRSD: 94 QT: 432 QTc: 473 [place]: P: 86 NC: 148 QRS: 68 T: 46 INTERPRETIVE STATEMENTS: Sinus rhythm with sinus arrhythmia with occasional premature ventricular complexes Nonspecific ST abnormality Abnormal ECG Compared to ECG 07/20/2020 14:06:36 Ventricular premature complex(es) now present Atrial fibrillation no longer present Left ventricular hypertrophy no longer present ST (T wave) deviation still present Electronically Signed On 02-20-22 12:23:28 CDT by Jj Lopez
--- NOTE | 2022-02-20 14:46 | ECHO ---
HEIGHT: 6 ft 0 in WEIGHT: 165 lb 14.4 oz DATE OF STUDY: 02/20/[address]: Mayela Sauceda MD 2-DIMENSIONAL: YES M.MODE: YES DOPPLER: YES COLOR FLOW: YES TDS: NO PORTABLE: YES DEFINITY: NO BUBBLE STUDY: NO DIAGNOSIS: CONGESTIVE HEART FAILURE CARDIAC HISTORY: CATHERIZATION:YES SURGERY: YES PROSTHETIC VALVE: NO PACEMAKER: NO MEASUREMENTS (cm) DIASTOLIC (NORMALS) SYSTOLIC (NORMALS) IVSd 1.2 (0.6-1.2) LA Diam 4.1 (1.9-4.0) LVEF 53% LVIDd 3.8 (3.5-5.7) LVIDs 2.8 (2.0-3.5) %FS 27% LVPWd 1.3 (0.6-1.2) Ao Diam 2.8 (2.0-3.7) 2 DIMENSIONAL ASSESSMENT: RIGHT ATRIUM: NORMAL LEFT ATRIUM: ENLARGED RIGHT VENTRICLE: NORMAL LEFT VENTRICLE: MILD LEFT VENTRICULAR HYPERTROPHY TRICUSPID VALVE: MITRAL VALVE: MITRAL ANNULAR CALCIFICATION PULMONIC VALVE: NORMAL AORTIC VALVE: PERICARDIAL EFFUSION: NONE AORTIC ROOT: NORMAL LEFT VENTRICULAR WALL MOTION: NORMAL DOPPLER/COLOR FLOW: SEE BELOW COMMENTS: NORMAL LEFT VENTRICULAR EJECTION FRACTION 55-60%. LEFT ATRIAL ENLARGEMENT. MILD TO MODERATE TRICUSPID REGURGITATION. MODERATE MITRAL REGURGITATION. MILD AORTIC REGURGITATION. MODERATE DIASTOLIC DYSFUNCTION. SEVERE PULMONARY HYPERTENSION WITH RIGHT VENTRICULAR SYSTOLIC PRESSURE > 60 mmHg. TECHNOLOGIST: Justine RIVAS
[2022-02-20 16:15] VITALS: BP 132/71; TEMP 99.4
== END 2022-02-20 17:13 | disposition home health service (06) | DRG 637 ==
LOC: ER 10:58 → ERHOLD 17:45 → 2ND 21:38
PROVIDERS: ADMIT Hospitalist; ATTEND Internal Medicine
DX: E11.649 Type 2 diabetes mellitus with hypoglycemia without coma (principal); G93.41 Metabolic encephalopathy; J18.9 Pneumonia, unspecified organism; I13.0 Hypertensive heart and chronic kidney disease with heart failure and stage 1 through stage 4 chronic kidney disease, or unspecified chronic kidney disease; N17.9 Acute kidney failure, unspecified; E11.22 Type 2 diabetes mellitus with diabetic chronic kidney disease; N18.30 Chronic kidney disease, stage 3 unspecified; I50.9 Heart failure, unspecified; W19.XXXA Unspecified fall, initial encounter; I25.10 Atherosclerotic heart disease of native coronary artery without angina pectoris; J44.9 Chronic obstructive pulmonary disease, unspecified; K27.9 Peptic ulcer, site unspecified, unspecified as acute or chronic, without hemorrhage or perforation; Z20.822 Contact with and (suspected) exposure to COVID-19; Z95.1 Presence of aortocoronary bypass graft; Z79.899 Other long term (current) drug therapy; Z80.9 Family history of malignant neoplasm, unspecified
CPT/HCPCS: 36415; 70450; 70551; 71045; 71250; 72125; 80048; 80053; 80061; 80076; 81001; 82272; 82947; 83036; 83605; 83735; 83880; 84145; 84484; 85025; 85610; 86850; 86900; 86901; 87811; 93005; 93306; 96374; 96375; 97116; 97161; 97530; 99285; J0456; J1940; J2543; J7050

== ENCOUNTER 2022-03-12 08:49 | Inpatient (IN) | payer OTHER ==
--- OUTSIDE RECORDS SUMMARY | 2022-03-12 08:52 | XMS REPORT | Continuity of Care Document ---
:1935 Author Organization [facility] t Address [address] [place] [address] [address]. [address] [place] [address] Care Team Providers Name Role Phone Finn [place] Attending Clinician Unavailable ROC VINCENT Attending Clinician Unavailable Mg-Mbayo_A_AH Attending Clinician Unavailable Mg-Mbayo_A_AH Admitting Clinician Unavailable Payers Payer Name Policy Type Policy Number Effective Date Expiration Date S [facility] OF [place] - [id number] 2019 [employer] 00:00:00 (MEDICARE REPLACEMENT/ADVANT AGE - HMO) Problems Condition Condition Condition Status Onset Resolution Last Treating Co mments Source Name Details Category Date Date Treatment Clinician Date Hyperchole Hyperchole Problem Active [facility] ill[facility] sterolemia sterolemia 4-09 Fa dontrell 00:00: Practic 00 e Essential Essential Problem Active Hanna donna hypertensi Hypertensi 4-09 Fa dontrell on on 00:00: Practic 00 e Normal Normal Problem Active [facility] body mass Body Mass 4-09 Fami ly index Index 00:00: Practic 00 e 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 Social History Smoking Status Start Date Stop Date Source Former Smoker [facility] Medications Ordered Filled Start Stop Current Ordering Indication Dosage Frequency Signature Comments Components Source Medication Medication Date Date Medication? Clinician (SIG) Name Name Albuterol Albuterol Yes Finn 1 puff as Common Sulfate HFA Sulfate HFA 08-04 [place] needed Spirit 00:00: - [facility] Anoro Anoro 2020- No Finn take 1 Common Ellipta Ellipta 13 12 [place] puff Spirit 00:00: 00:00 - [facility] 00 :00 [facility] One Touch One Touch Yes Finn 1 lancet Common Delica Delica 07-31 [place] Spirit Lancets Lancets 00:00: - [facility] 00 [facility] OneTouch OneTouch Yes Finn 1 test C ommon Verio Verio 07-31 [place] strip Spirit 00:00: - [facility] 00 [facility] Aricept Aricept Yes Finn 1 tablet Com mon [place] at bedtime [facility] Ferrous Ferrous Yes Finn 1 tablet Com mon Sulfate Sulfate [place] [facility] Hemocyte Hemocyte Yes Finn 1 capsule Common Plus Plus [place] [facility] Donepezil Donepezil Yes Finn TAKE 1 C ommon HCl HCl [place] TABLET BY Spirit MOUTH - CHI EVERYDAY St AT BEDTIME [facility] BD Pen BD Pen Yes Finn USE Common Needle Katrina Needle Katrina [place] DIRECTED Spirit U/F U/F DAILY - [facility] Plavix Plavix Yes Finn 1 tablet Commo n [place] [facility] Levemir Levemir Yes Finn INJECT Commo n FlexTouch FlexTouch [place] UNDER THE Spirit SKIN 36 - CHI UNITS St EVERY DAY [facility] Keppra Keppra Yes Finn 1 tablet Commo n [place] [facility] Furosemide Furosemide Yes Finn 1 tablet Common [place] [facility] Fish Oil Fish Oil Yes Finn 1 capsule Common [place] [facility] Cozaar Cozaar Yes Finn 1 tablet Commo n [place] Spirit - [facility] Levetiracet Levetiracet Yes Finn TAKE 1 Common am am [place] TABLET BY Spirit MOUTH - CHI TWICE A [facility] Losartan Losartan Yes Finn TAKE 1 Com mon Potassium Potassium [place] TABLET BY Spirit MOUTH - [facility]I EVERY DAY [facility] Aspir-81 Aspir-81 Yes Finn 1 tablet C ommon [place] Spirit - [facility] Simvastatin Simvastatin Yes Finn 1 tablet Common [place] in the Spirit evening - [facility] Clopidogrel Clopidogrel Yes Finn 1 tablet Common Bisulfate Bisulfate [place] Spir it - [facility] Ferrous Ferrous Yes Finn TAKE 1 Commo n Sulfate Sulfate [place] TABLET BY Spi rit MOUTH - CHI TWICE A [facility] Victoza Victoza Yes Finn Inject 0.6 C ommon [place] mg/day x 1 Spirit week then - [facility]I 1.2 St mg/day. [facility] Max 1.8 Medical mg/day [place] Adult Multi Adult Multi No Adult [place] plus plus Multi plus Family Pulaski-3 1 [place]-3 1 [place]-3 1 Practic TAB DAILY TAB DAILY TAB DAILY e Aleve 220 Aleve 220 No 1mg 6xD Aleve 220 Village mg capsule mg capsule mg capsule Family Take 1 mg 6 Take 1 mg 6 Take 1 mg Practic times a day times a day 6 times a e by oral by oral day by route with route with oral route meals. meals. with meals. Aspir-81 1 Aspir-81 1 No -81 1 Village TAB DAILY TAB DAILY TAB DAILY Family Practic e clopidogrel clopidogrel No 1 Q1D clopidogre [place] 75 mg 75 mg l 75 mg Family tablet Take tablet Take tablet Practic 1 tablet 1 tablet Take 1 e every day every day tablet by oral by oral every day route. route. by oral route. donepezil donepezil No 1 Q1D donepezil [facility] 10 mg 10 mg 10 mg Family tablet Take tablet Take tablet Practic 1 tablet 1 tablet Take 1 e every day every day tablet by oral by oral every day route. route. by oral route. ferrous ferrous No 1 Q1D ferrous Villag e sulfate 325 sulfate 325 sulfate Family mg (65 mg mg (65 mg 325 mg (65 Practic iron) iron) mg iron) e tablet Take tablet Take tablet 1 tablet 1 tablet Take 1 every day every day tablet by oral by oral every day route. route. by oral route. furosemide furosemide No 1 Q1D furosemide [facility] 80 mg 80 mg 80 mg Family tablet Take tablet Take tablet Practic 1 tablet 1 tablet Take 1 e every day every day tablet by oral by oral every day route. route. by oral route. Levemir Levemir No 18unit( BID Levemir Hanna donna FlexTouch FlexTouch s) FlexTouch Family U-100 U-100 U-100 Practic Insulin 100 Insulin 100 Insulin e unit/mL (3 unit/mL (3 100 mL) mL) unit/mL (3 subcutaneou subcutaneou mL) s pen s pen subcutaneo Inject 18 Inject 18 us pen units twice units twice Inject 18 a day by a day by units subcutaneou subcutaneou twice a s route s route day by before before subcutaneo meals. meals. us route before meals. levetiracet levetiracet No 1 BID levetirace [facility] am 500 mg am [address] 500 mg Family tablet Take tablet Take tablet Practic 1 tablet 1 tablet Take 1 e twice a day twice a day tablet by oral by oral twice a route. route. day by oral route. losartan 50 losartan 50 No 1 Q1D losartan [place] mg tablet mg tablet 50 mg Fami ly Take 1 Take 1 tablet Practic tablet tablet Take 1 e every day every day tablet by oral by oral every day route with route with by oral meals. meals. route with meals. multivitami multivitami No 1capsul Q1D multivitam [facility] n capsule n capsule e(s) in capsule Family Take 1 Take 1 Take 1 Practic capsule capsule capsule e every day every day every day by oral by oral by oral route with route with route with meals. meals. meals. simvastatin simvastatin No 1 Q1D simvastati [facility] 40 mg 40 mg n 40 mg Family tablet Take tablet Take tablet Practic 1 tablet 1 tablet Take 1 e every day every day tablet by oral by oral every day route. route. by oral route. Immunizations Ordered Immunization Filled Immunization Date Status Commen ts Source Name Name FluAD FluAD 2019-05-20 Completed Common Spirit - 00:00:00 [facility] influenza, influenza, 2019-04-22 Completed [facility] Family injectable, injectable, 00:00:00 Practice quadrivalent quadrivalent FluAD FluAD 2018-04-23 Completed Common Spirit - 00:00:00 [facility] Vital Signs Vital Name Observation Time Observation Value Comments Source Height 2020-02-11 00:00:00 71 [in_i] [facility] BP Diastolic 2019-09-24 00:00:00 80 mm[Hg] [facility] Height 2019-09-24 00:00:00 71 [in_i] [facility] BMI (Body Mass 2019-09-24 00:00:00 24.6 kg/m2 [facility] BP Systolic 2019-09-24 00:00:00 135 mm[Hg] [facility] Body Weight 2019-09-24 00:00:00 176.5 [lb_av] [facility] Procedures This patient has no known procedures. Encounters Start End Encounter Admission Attending Care Care Encounter Source Date/Time Date/Time Type Type Clinicians Facility Department ID 2021-08-17 Outpatient [place], STLMLC [facility] [id number] Common 14:13:05 Finn [id number] [facility] 2021-08-17 Outpatient [place], STLMLC [facility] [id number] Common 13:44:51 Finn [id number] [facility] 2021-08-17 Outpatient [place], STLMLC [facility] [id number] Common 13:34:10 Finn [id number] [facility] 2021-08-17 Outpatient [place], STLC [facility] [id number] Common 13:33:51 Finn [id number] [facility] 2021-08-17 Outpatient [place], STLMLC [facility] [id number] Common 12:59:05 Finn [id number] [facility] 2021-08-17 Outpatient [place], STLC [facility] [id number] Common 12:28:35 Finn [id number] [facility] 2021-08-17 Outpatient [place], STLC [facility] [id number] Common 12:27:34 Finn [id number] [facility] 2021-08-17 Outpatient [place], STLC [facility] [id number] Common 12:26:46 Finn [id number] [facility] 2021-08-17 Outpatient [place], STLMLC STLMLC [id number] Common 12:25:12 [facility] [id number] [facility] 2021-08-17 Outpatient [place], STLMLC STLMLC [id number] Common 11:20:00 [facility] [id number] [facility] 2021-08-17 Outpatient [place], STLMLC STLMLC [id number] Common 11:04:20 [facility] [id number] [facility] 2021-11-10 2021-11-10 ambulatory STLMLC STLMLC [id number] Common 00:00:00 00:00:00 [facility] 2021-08-09 2021-08-09 Outpatient [facility] [id number] [address] [place] [id number] 00:00:00 00:00:00 [facility] [address] 2021-06-06 2021-06-06 ambulatory STLMLC STLMLC [id number] Common 00:00:00 00:00:00 [facility] 2021-05-25 2021-05-25 ambulatory STLMLC STLMLC [id number] Common 00:00:00 00:00:00 [facility] 2021-03-23 2021-03-23 Outpatient STLMLC STLMLC [id number] Common 00:00:00 00:00:00 [facility] 2021-02-23 2021-02-23 Outpatient STLMLC STLMLC [id number] Common 00:00:00 00:00:00 [facility] 2020-12-23 2020-12-23 Outpatient STLMLC STLMLC [id number] Common 00:00:00 00:00:00 [facility] 2020-11-24 2020-11-24 Outpatient STLMLC STLMLC [id number] Common 00:00:00 00:00:00 [facility] 2020-11-17 2020-11-17 Outpatient Mg-Hedyo VFP VFP 796 [facility] 12:10:00 12:10:00 _A_ [id number] Family Practic e 2020-11-17 2020-11-17 Outpatient Mg-Mbayo VFP VFP 796 [facility] 12:10:00 12:10:00 _A_AH [id number] Family Practic e 2020-09-16 2020-09-16 Outpatient Mg-Mbayo VFP VFP 796 [facility] 06:31:00 06:31:00 _A_AH [id number] Family Practic e 2020-09-16 2020-09-16 Outpatient Gm-Mbayo VFP VFP 796 [facility] 06:31:00 06:31:00 _A_AH [id number] Family Practic e 2020-09-16 2020-09-16 Outpatient Mg-Mbayo VFP VFP 796 [facility] 06:31:00 06:31:00 _A_AH [id number] Family Practic e 2020-08-26 2020-08-26 Outpatient STLMLC STLMLC [id number] Common 00:00:00 00:00:00 [facility] 2020-08-26 2020-08-26 Outpatient STLMLC STLMLC [id number] Common 00:00:00 00:00:00 [facility] 2020-06-22 2020-06-22 Outpatient STLMLC STLMLC [id number] Common 00:00:00 00:00:00 [facility] 2020-05-20 2020-05-20 Outpatient STLMLC STLMLC [id number] Common 00:00:00 00:00:00 [facility] 2020-02-20 2020-02-20 Outpatient Mg-Mbayo VFP VFP 796 [facility] 02:01:00 02:01:00 _A_AH [id number] Family Practic e 2020-02-19 2020-02-19 [facility] [id number] Common 08:15:00 08:15:00 SnapMy[employer] [facility] it Qoniac [facility] 2020-02-17 2020-02-17 Outpatient Mg-Mbayo VFP VFP 796 [facility] 04:24:00 04:24:00 _A_AH [id number] Family Practic e 2020-02-11 2020-02-11 [place] - [id number] V illage 00:00:00 00:00:00 Mg-Mbay [facility] Fam whitney gonsalez [employer]: Medical - Practi c [address] [email or web address], [place] [address], [place] [address] , Ph. 2019-12-23 2019-12-23 Outpatient Mg-Mbayo VFP VFP [facility] 02:52:00 02:52:00 _A_AH [id number] Family Practic e 2019-12-16 2019-12-16 Outpatient Mg-Mbayo VFP VFP 796 [facility] 12:32:00 12:32:00 _A_AH [id number] Family Practic e 2019-11-20 2019-11-20 [facility] [id number] Common 14:10:00 14:10:[address] Sp[address] Drive [facility] 2019-11-20 2019-11-20 [facility] [id number] Common 10:15:00 10:15:[address] [facility] 2019-09-30 2019-09-30 Out[facility] [id number] Common 11:22:00 11:22:[address] Sp[address] Family [facility] 2019-09-24 2019-09-24 Outpatient Mg-Mbayo VFP VFP [facility]96 [facility] 11:38:00 11:38:00 _A_AH [id number] Family Practic e 2019-09-24 2019-09-24 [place] - [id number] V illage 00:00:00 00:00:00 Mg-Hedy [facility] Fam wihtney gonsalez [employer]: Celia - Pracdanish jarrell [address] [email or web address] [place] [address], [place] [address] , Ph. 2019-09-10 2019-09-10 Outpatient Mg-Mbayo VFP VFP 796 [facility] 07:21:00 07:21:00 _A_AH [id number] Family Practic e 2019-08-27 2019-08-27 Out[facility] [id number] Common 14:33:00 14:33:[address] Drive [facility] 2019-08-21 2019-08-21 Out[facility] [id number] Common 10:30:00 10:30:[address] [facility] 2019-08-04 2019-08-04 [facility] [id number] Common 10:00:00 10:00:[address] [facility] 2019-07-21 2019-07-21 Out[facility] [id number] Common 10:03:00 10:03:[address] [facility] 2019-05-20 2019-05-20 Out[facility] [id number] Common 09:30:00 09:30:[address] [facility] 2019-02-17 2019-02-17 Out[facility] [id number] Common 09:45:00 09:45:[address] [facility] 2018-11-25 2018-11-25 [facility] [id number] Common 08:30:00 08:30:[address] [facility] 2018-11-18 2018-11-18 Out[facility] [id number] Common 09:30:00 09:30:[address] [facility] 2018-11-14 2018-11-14 Out[facility] [id number] Common 13:24:00 13:24:[address] [facility] 2018-08-20 2018-08-20 Out[facility] [id number] Common 09:30:00 09:30:[address] [facility] 2018-07-31 2018-07-31 Outpatient [facility] [id number] Common 09:18:00 09:18:[address] [facility] 2018-07-01 2018-07-01 Outpatient [facility] [id number] Common 11:33:00 11:33:[address] [facility] 2018-05-09 2018-05-09 Outpatient [facility] [id number] Common 11:00:00 11:00:[address] [facility] [address] Spir [address] Road [facility] 2018-04-23 2018-04-23 Out[facility] [id number] Common 10:15:00 10:15:[address] [facility] 2018-04-16 2018-04-16 Out[facility] [id number] Common 13:57:00 13:57:[address] [facility] 2018-02-12 2018-02-12 Out[facility] [id number] Common 09:21:00 09:21:[address] [facility] 2018-01-11 2018-01-11 Out[facility] [id number] Common 08:23:00 08:23:[address] [facility] [address] [facility] 2018-01-08 2018-01-08 Out[facility] [id number] Common 13:53:00 13:53:[address] [facility] 2018-01-03 2018-01-03 Out[facility] [id number] Common 13:30:00 13:30:[address] [facility] Results This patient has no known results.
[2022-03-12] MEDS ORDERED: LEVALBUTEROL 1.25 MG/3 ML NEB ONE (09:24)
[2022-03-12 09:28] LABS: Absolute Lymphocytes (CBC) 1.7 K/uL (0.7-4.9); Hematocrit 31.5 % (39.6-49.0); Lymphocytes % 16.2 % (15.3-44.8); MCV 82.4 fL (80-100); MPV 7.8 fL (7.6-11.3); Protime INR 1.09; RBC Red Blood Cell Count 3.83 M/uL (4.33-5.43)
[2022-03-12 09:45] LABS: ALT/SGPT 17 U/L (12-78); Alkaline Phosphatase 78 U/L (45-117); BUN Blood Urea Nitrogen 23 mg/dL (7-18); Bicarbonate 27 mmol/L (21-32); Bilirubin Total 0.4 mg/dL (0.2-1.0); Glomerular Filtration Rate 40 ml/min (=/>90); Glucose Level 75 mg/dL (74-106); NT PRO-BNP 8438 pg/mL (<450); Protein, Total 6.5 g/dL (6.4-8.2); Sodium Level 141 mmol/L (136-145)
[2022-03-12 09:46] LABS: AST/SGOT 21 U/L (15-37); Bilirubin Direct < 0.1 mg/dL (0-0.2); Magnesium 2.7 mg/dL (1.8-2.4); Potassium 4.1 mmol/L (3.5-5.1)
[2022-03-12 09:47] LABS: Troponin High Sensitivity 1315.3 pg/mL (<58.9)
--- NOTE | 2022-03-12 09:48 | RAD REPORT ---
EXAM DESCRIPTION: RAD - Chest Single View - 03/12/2022 9:25 am CLINICAL HISTORY: SOB COMPARISON: Two view chest TG 22 TECHNIQUE: AP portable chest image was obtained 03/12/2022 9:25 am . FINDINGS: Below COPD changes are present in each upper lobe. Patient has a baseline interstitial pat tern is prominent. Bibasilar interstitial and alveolar opacities are present new from prior imaging. Heart size and pulmonary vasculature within normal range. Small bilateral pleural effusions are suspe cted. No pneumothorax. Biapical scarring changes are present. No acute bony abnormality seen. No acut e aortic findings suspected. IMPRESSION: Bibasilar interstitial alveolar opacification and small pleural effusions. Findings are superimposed on baseline COPD. Bilateral lung base pneumonia is possible if there are ma tching clinical findings. Mild failure or volume overload can have this appearance as well.
--- NOTE | 2022-03-12 10:09 | ER ---
Nurse's Notes [facility] Name: Kyle De Guzman Age: 87 yrs Sex: Male : 1935 Arrival Date: 03/12/2022 Time: 08:55 Bed 25 Private MD: Diagnosis: Unspecified combined systolic (congestive) and diastolic (congestive) heart failure;Subsequent non-ST elevation (NSTEMI) myocardial infarction;Orthopnea Presentation: 03/12 08:50 Chief complaint: EMS states: Toned out for SOB for the past 3 days that worsens with tp1 exertion. Reports rhonchi and productive cough with brown sputum. Stated PT was hospitalized 3 weeks ago for pneumonia, antibiotics were completed. Reports O2 95% RA. Coronavirus screen: Vaccine status: Patient reports being unvaccinated. Client denies travel out of the [place] in the last 14 days. cough unrelated to allergies, difficulty breathing, Client presents with at least one sign or symptom that may indicate coronavirus-19. Standard/surgical mask placed on the client. Ebola Screen: Patient denies exposure to infectious person. Patient denies travel to an Ebola-affected area in the 21 days before illness onset. Initial Sepsis Screen: Does the patient meet any 2 criteria? No. Patient's initial sepsis screen is negative. Does the patient have a suspected source of infection? No. Patient's initial sepsis screen is negative. Risk Assessment: Do you want to hurt yourself or someone else? Patient reports no desire to harm self or others. 08:50 Method Of Arrival: EMS: [facility] tp1 08:50 Onset of symptoms was March 09, 2022. tp1 08:50 Acuity: JAVI 3 tp1 Triage Assessment: 08:50 General: Appears in no apparent distress. comfortable, Behavior is calm, cooperative. tp1 Pain: Denies pain. EENT: No signs and/or symptoms were reported regarding the EENT system. Neuro: Level of Consciousness is awake, alert, obeys commands, Oriented to person, place, time, situation. Cardiovascular: Denies chest pain, Patient's skin is warm and dry. Edema bilateral lower legs. Respiratory: Reports shortness of breath on exertion cough that is productive, Airway is patent Respiratory effort is even, unlabored, Respiratory pattern is regular, Breath sounds are diminished in right lower lobe and right posterior lower lobe. GI: Abdomen is round non-distended. : No signs and/or symptoms were reported regarding the genitourinary system. Derm: Skin is pink, warm \T\ dry. Musculoskeletal: Circulation, motion, and sensation intact. Historical: - Allergies: 09:31 No Known Allergies; tp1 - PMHx: 09:31 COPD; Diabetes - IDDM; Hypertension; possible CVA vs seizure; tp1 - PSHx: 09:33 triple bypass; tp1 - Immunization history:: Client reports receiving the 2nd dose of the Covid vaccine. - Social history:: Smoking status: Patient/guardian denies using tobacco, the patient reports quitting approximately 30 years ago. Screenin:40 Abuse screen: Denies threats or abuse. Denies injuries from another. Nutritional tp1 screening: No deficits noted. Tuberculosis screening: No symptoms or risk factors identified. Fall Risk No fall in past 12 months (0 pts). No secondary diagnosis (0 pts). IV access (20 points). Ambulatory Aid- None/Bed Rest/Nurse Assist (0 pts). Gait- Normal/Bed Rest/Wheelchair (0 pts) Mental Status- Oriented to own ability (0 pts). Total Deleon Fall Scale indicates No Risk (0-24 pts). Assessment: 08:50 General: See triage notes . tp1 09:38 Reassessment: Patient appears in no apparent distress at this time. Patient and/or tp1 family updated on plan of care and expected duration. Pain level reassessed. Patient is alert, oriented x 3, equal unlabored respirations, skin warm/dry/pink. states feeling much better after breathing treatment. 10:20 Reassessment: Dr. Grimm at bedside. tp1 10:36 Reassessment: Patient appears in no apparent distress at this time. No changes from tp1 previously documented assessment. Patient and/or family updated on plan of care and expected duration. Pain level reassessed. Patient is alert, oriented x 3, equal unlabored respirations, skin warm/dry/pink. Patient denies pain at this time. Vital Signs: 08:50 BP 145 / 82; Pulse 87; Resp 24; Temp 98.7; Pulse Ox 96% on R/A; Weight 72.57 kg; Height tp1 6 ft. (182.88 cm); 09:39 BP 134 / 70; Pulse 75; Resp 19; Pulse Ox 96% on R/A; tp1 08:50 Body Mass Index 21.70 (72.57 kg, 182.88 cm) tp1 ED Course: 08:50 Patient has correct armband on for positive identification. Placed in gown. Bed in low tp1 position. Call light in reach. Side rails up X2. Client placed on continuous cardiac and pulse oximetry monitoring. NIBP monitoring applied. Door closed. Noise minimized. Warm blanket given. 08:50 Arm band placed on. tp1 08:55 Patient arrived in ED. eb 08:56 Gino Stephen PA is PHCP. cp 08:56 Annemarie Dugan MD is Attending Physician. cp 09:11 Izabella Finley, PATRICIA is Primary Nurse. tp1 09:11 Initial lab(s) drawn, by me, sent to lab. COVID swab sent to lab. Flu and/or RSV swab tp1 sent to lab. 09:25 Maintain EMS IV. Dressing intact. Good blood return noted. Site clean \T\ dry. Gauge \T\ tp 1 site: 20 G R forearm . 09:26 XRAY Chest (1 view) In Process Unspecified. EDMS 09:31 Triage completed. tp1 09:40 No provider procedures requiring assistance completed. tp1 10:07 Hernan Schwartz MD is Hospitalizing Provider. 03/13 08:16 role handed off by Caryn Farrell, PATRICIA bd Administered Medications: 03/12 09:17 Drug: Xopenex (levalbuterol) (3) 1.25 mg Route: Inhalation; tp1 09:41 Follow up: Response: Marked relief of symptoms tp1 10:15 Not Given (Physician Discretion): Lasix (furosemide) 40 mg IVP once; give over 2 minutescp 10:46 CANCELLED (Physician Discretion): Lasix (furosemide) 20 mg IVP once; give over 2 minutescp 11:00 Drug: Aspirin Chewable Tablet 324 mg Route: PO; tp1 11:01 Drug: Lovenox (enoxaparin) 1 mg/kg Route: Sub-Q; Site: left lower abdomen; tp1 11:01 Drug: Lasix (furosemide) 40 mg Route: IVP; Site: right femoral; tp1 Outcome: 10:08 Decision to Hospitalize by Provider. cp 03/13 15:11 Patient left the ED. ph Signatures: Dispatcher [employer] EDMS Indigo Escobar Patricia RN RN ph Gino Stephen PA PA cp Botello, Elizabeth eb Parker, Tiffany, RN RN tp1 Corrections: (The following items were deleted from the chart) 03/12 09:34 09:31 PSHx: tripple bipass; tp1 tp1 38 09:37 General: See triage notes . tp1 tp1 38 09:37 Reassessment: tp1 tp1 10:02 08:50 Cardiovascular: Denies chest pain, Patient's skin is warm and dry. tp1 tp1 11:01 11:01 Lasix (furosemide) 40 mg IVP in right antecubital tp1 tp1
--- NOTE | 2022-03-12 10:09 | EDPHYS ---
Physician Documentation [facility] Name: Kyle De Guzman Age: 87 yrs Sex: Male : 1935 Arrival Date: 03/12/2022 Time: 08:55 Bed 25 Private MD: ED Physician Annemarie Dugan HPI: 03/12 09:10 This 87 yrs old Male presents to ER via EMS with complaints of Shortness Of Breath, cp Cough. 09:10 The patient has shortness of breath with light activity. Onset: The symptoms/episode cp began/occurred gradually. Duration: The symptoms are continuous, and are steadily getting worse. Associated signs and symptoms: Pertinent positives: productive cough, Pertinent negatives: chest pain, diaphoresis, fever, hemoptysis, abdominal pain. Severity of symptoms: in the emergency department the symptoms are unchanged despite home interventions. Historical: - Allergies: 09:31 No Known Allergies; tp1 - PMHx: 09:31 COPD; Diabetes - IDDM; Hypertension; possible CVA vs seizure; tp1 - PSHx: 09:33 triple bypass; tp1 - Immunization history:: Client reports receiving the 2nd dose of the Covid vaccine. - Social history:: Smoking status: Patient/guardian denies using tobacco, the patient reports quitting approximately 30 years ago. ROS: 09:15 Constitutional: Negative for body aches, chills, fever, poor PO intake. cp 09:15 Eyes: Negative for injury, pain, redness, and discharge. cp 09:15 ENT: Negative for drainage from ear(s), ear pain, sore throat, difficulty swallowing, difficulty handling secretions. 09:15 Cardiovascular: Positive for edema, Negative for chest pain, palpitations. 09:15 Respiratory: Positive for cough, brown colored sputum, shortness of breath, on exertion. 09:15 Abdomen/GI: Negative for abdominal pain, nausea, vomiting, and diarrhea. 09:15 Neuro: Negative for altered mental status, dizziness, headache, numbness, syncope, weakness. 09:15 All other systems are negative. Exam: 09:07 ECG was reviewed by the Attending Physician. cp 09:18 Constitutional: The patient appears in no acute distress, alert, awake, cp non-diaphoretic, non-toxic, well developed, well nourished. 09:18 Head/Face: Normocephalic, atraumatic. cp 09:18 Eyes: Periorbital structures: appear normal, Conjunctiva: normal, no exudate, no injection, Sclera: no appreciated abnormality, Lids and lashes: appear normal, bilaterally. 09:18 ENT: External ear(s): are unremarkable, Nose: is normal, Mouth: Lips: moist, Oral mucosa: pink and intact, moist, Posterior pharynx: Airway: no evidence of obstruction, patent, Tonsils: are normal in appearance, swelling, is not appreciated, erythema, is not appreciated, exudate, is not appreciated. 09:18 Neck: ROM/movement: is normal, is supple, without pain, no range of motions limitations, no meningismus. 09:18 Chest/axilla: Inspection: normal, Palpation: is normal, no crepitus, no tenderness. 09:18 Cardiovascular: Rate: normal, Rhythm: regular, Edema: ankle edema, that is mild, JVD: is not appreciated. 09:18 Respiratory: the patient does not display signs of respiratory distress, Respirations: labored breathing, that is mild, Breath sounds: bronchial sounds, that are mild, are heard diffusely, stridor, is not appreciated, wheezing: is not appreciated. 09:18 Abdomen/GI: Inspection: abdomen appears normal, Palpation: abdomen is soft and non-tender, in all quadrants. 09:18 Back: pain, is absent, ROM is normal. 09:18 Skin: cellulitis, is not appreciated, no rash present. 09:18 Neuro: Orientation: to person, place \\T\\ time. Mentation: is normal, Motor: moves all fours, strength is normal. Vital Signs: 08:50 BP 145 / 82; Pulse 87; Resp 24; Temp 98.7; Pulse Ox 96% on R/A; Weight 72.57 kg; Height tp1 6 ft. (182.88 cm); 09:39 BP 134 / 70; Pulse 75; Resp 19; Pulse Ox 96% on R/A; tp1 08:50 Body Mass Index 21.70 (72.57 kg, 182.88 cm) tp1 MDM: 09:03 Patient medically screened. cp 10:00 Data reviewed: vital signs, nurses notes, lab test result(s), EKG, radiologic studies, cp plain films. 10:00 Test interpretation: by ED physician or midlevel provider: ECG, plain radiologic cp studies. 10:10 Physician consultation: Hernan Schwartz MD was contacted at 10:00, regarding admission, to the telemetry unit. patient's condition, would like consultation with Dr. Oliveros. 03/12 09:03 Order name: Basic Metabolic Panel; Complete Time: 09:53 cp 03/12 09:54 Interpretation: Normal except: CL 110; BUN 23; CRE 1.63; GFR 40; CA 8.4. cp 03/12 09:03 Order name: CBC with Diff; Complete Time: 09:53 cp 03/12 09:53 Interpretation: Normal except: RBC 3.83; HGB 10.7; HCT 31.5. cp 03/12 09:03 Order name: LFT's; Complete Time: 09:53 cp 03/12 10:16 Interpretation: Normal except: ALB 3.0; A/G 0.9. cp 03/12 09:03 Order name: Magnesium; Complete Time: 09:53 cp 03/12 09:03 Order name: NT PRO-BNP; Complete Time: 09:53 cp 03/12 09:53 Interpretation: Abnormal: NT PRO-BNP 8438. cp 03/12 09:03 Order name: PT-INR; Complete Time: 09:53 cp 03/12 09:03 Order name: Troponin HS; Complete Time: 09:53 cp 03/12 10:16 Interpretation: Abnormal: Troponin HS 1315.3. cp 03/12 09:03 Order name: COVID-19 SARS RT PCR (Document "Date of Onset" if Symptomatic); Complete cp Time: 11:14 03/12 09:03 Order name: Influenza Screen (a \\T\\ B); Complete Time: 10:15 cp 03/12 10:22 Order name: D-Dimer; Complete Time: 04:33 EDMS 03/12 10:22 Order name: Troponin High Sensitivity; Complete Time: 04:33 EDMS 03/12 11:13 Order name: CBC with Automated Diff EDMS 03/12 11:13 Order name: CBC with Automated Diff; Complete Time: 04:33 EDMS 03/12 11:13 Order name: CBC with Automated Diff EDMS 03/12 09:03 Order name: XRAY Chest (1 view); Complete Time: 09:53 cp 03/12 11:13 Order name: CBC with Automated Diff EDMS 03/12 11:13 Order name: Comprehensive Metabolic Panel EDMS 03/12 11:13 Order name: Comprehensive Metabolic Panel; Complete Time: 04:33 EDMS 03/12 11:13 Order name: Comprehensive Metabolic Panel EDMS 03/12 11:13 Order name: Comprehensive Metabolic Panel EDMS 03/12 11:13 Order name: Magnesium EDMS 03/12 11:13 Order name: Magnesium; Complete Time: 04:33 EDMS 03/12 11:13 Order name: Phosphorus EDMS 03/12 11:13 Order name: Phosphorus; Complete Time: 04:33 EDMS 03/12 11:13 Order name: Protime (+INR) EDMS 03/12 11:13 Order name: Protime (+INR); Complete Time: 04:33 EDMS 03/12 22:50 Order name: Troponin High Sensitivity; Complete Time: 04:33 EDMS 03/13 03:51 Order name: Troponin High Sensitivity; Complete Time: 04:33 EDMS 03/13 07:29 Order name: Glucose, Ancillary Testing; Complete Time: 03:10 EDMS 03/13 13:23 Order name: Glucose, Ancillary Testing; Complete Time: 03:10 EDMS 03/12 09:03 Order name: EKG; Complete Time: 09:04 cp 03/12 09:03 Order name: Cardiac monitoring; Complete Time: 09:11 cp 03/12 09:03 Order name: EKG - Nurse/Tech; Complete Time: 09:11 cp 03/12 09:03 Order name: IV Saline Lock; Complete Time: 09:11 cp 03/12 09:03 Order name: Labs collected and sent; Complete Time: 09:12 cp 03/12 09:03 Order name: O2 Per Protocol; Complete Time: 09:12 cp 03/12 09:03 Order name: O2 Sat Monitoring; Complete Time: 09:12 cp 03/12 11:10 Order name: Heart Healthy EDMS 03/12 11:13 Order name: CONS Physician Consult EDMS EC:07 Rate is 82 beats/min. Rhythm is regular. IN interval is normal. QRS interval is cp prolonged at 102 msec. QT interval is prolonged at 396 msec. T waves are Inverted in leads III, aVF. Interpreted by me. Reviewed by me. Administered Medications: 09:17 Drug: Xopenex (levalbuterol) (3) 1.25 mg Route: Inhalation; tp1 09:41 Follow up: Response: Marked relief of symptoms tp1 10:15 Not Given (Physician Discretion): Lasix (furosemide) 40 mg IVP once; give over 2 minutescp 10:46 CANCELLED (Physician Discretion): Lasix (furosemide) 20 mg IVP once; give over 2 minutescp 11:00 Drug: Aspirin Chewable Tablet 324 mg Route: PO; tp1 11:01 Drug: Lovenox (enoxaparin) 1 mg/kg Route: Sub-Q; Site: left lower abdomen; tp1 11:01 Drug: Lasix (furosemide) 40 mg Route: IVP; Site: right femoral; tp1 Disposition Summary: 03/12/22 10:08 Hospitalization Ordered Hospitalization Status: Inpatient Admission cp Provider: Hernan Schwartz cp Condition: Stable cp Problem: new cp Symptoms: have improved cp Bed/Room Type: Standard cp Location: Telemetry/MedSurg (Inpatient)(03/13/22 14:31) bd Room Assignment: 423(03/13/22 14:31) bd Diagnosis - Unspecified combined systolic (congestive) and diastolic (congestive) heart failure cp - Subsequent non-ST elevation (NSTEMI) myocardial infarction cp - Orthopnea cp Forms: - Medication Reconciliation Form cp - SBAR form cp Signatures: Dispatcher [employer] EDMS Indigo Escobar Shelly, FNP-C SPREADING MACHINE OPERATOR-Gino Rosenberg PA PA cp Ronna Farrell RN RN cg Izabella Finley RN RN tp1 Corrections: (The following items were deleted from the chart) 09:34 09:31 PSHx: tripple bipass; tp1 tp1 09:54 09:53 Normal except: CL 110; BUN 23; CRE 1.63; GFR 40. cp cp 10:46 10:15 Lasix (furosemide) 20 mg IVP once; give over 2 minutes ordered. cp cp 18:49 10:08 Telemetry/MedSurg (Inpatient) cp cg 18:49 10:08 cp cg 03/13 01:27 03/12 08:25 This 87 yrs old Male presents to ER via EMS with complaints of Shortness Of cp Breath, Cough. cp 03/13 14:31 03/12 18:49 [facility] ER HOLD cg bd 03/13 14:31 03/12 18:49 ERHOLD- cg bd 03/14 03:11 03/12 09:15 Respiratory: Positive for cough, with clear sputum, shortness of breath, on cp exertion. cp
[2022-03-12] MEDS ORDERED: FUROSEMIDE 20 MG/ 2ML VIAL ONE (10:35)
[2022-03-12] MEDS ORDERED: ENOXAPARIN 80 MG/0.8 ML SQ ONE ×2 (10:35→22:05)
[2022-03-12] MEDS ORDERED: ASPIRIN 81 MG CHEWABLE TABLET ONE (10:35)
[2022-03-12] MEDS ORDERED: FUROSEMIDE 40 MG/4 ML VIAL ONE ×2 (11:03→17:44)
--- NOTE | 2022-03-12 11:12 | P.HP ---
Certification for Inpatient Patient admitted to: Inpatient With expected LOS: >2 Midnights Patient will require the following post-hospital care: None Practitioner: I am a practitioner with admitting privileges, knowledge of patient current condition, hospital course, and medical plan of care. Services: Services provided to patient in accordance with Admission requirements found in Title 42 Section 412.3 of the Code of Federal Regulations Patient History Date of Service: 03/12/22 Reason for admission: Acute Decompensated Congestive Heart Failure History of Present Illness: Mr. Kyle De Guzman is a pleasant 87-year-old male with a past medical history significant for type 2 diabetes mellitus, chronic kidney disease stage III, chronic congestive heart failure, coronary artery disease s/p CABG, chronic obstructive pulmonary disease, and hypertension who presents to the [facility] Emergency Department for shortness of breath. He reports that, over the last 3-4 days, he has been experiencing progressively worsening shortness of breath. He states that this has been associated with orthopnea and paroxysmal nocturnal dyspnea. He states that his symptoms are worsened when lying flat and improved when sitting upright. He denies taking any medications for his symptoms. He denies any chest pain or palpitations. He grades the severity of his symptoms a 10/10. On review of systems, he denies any fevers, chills, headaches, dizziness, syncope, weakness, chest pain, palpitations, wheezing, cough, abdominal pain, nausea/vomiting, diarrhea, constipation, hematochezia, melena, dysuria, hematuria, myalgia, or any other symptoms. He presented to the Emergency Department for further evaluation. Upon presentation, his vital signs were notable for a respiratory rate of 24 breaths/min. His laboratory studies were notable for a NT proBNP of 8438, and initial troponin of 1315.3, and a creatinine of 1.63 (near baseline). EKG revealed sinus rhythm without STEMI criteria. Chest x-ray revealed, "bibasilar interstitial alveolar opacification and small pleural effusions. Findings are superimposed on baseline COPD. Bilateral lung base pneumonia is possible if there are matching clinical findings. Mild failure or volume overload can have this appearance as well." Cardiology was consulted in the Emergency Department, and recommendations are pending. In the Emergency Department, he was given levalbuterol, aspirin, enoxaparin, and furosemide. He was admitted to the General Internal Medicine service for further evaluation. Allergies No Known Allergies Allergy (Verified 02/20/12 16:47) Home medications list reviewed: Yes Home Medications: Calcium Carbonate [Calcium] 1 tab PO DAILY 11/19/18 Donepezil HCl 1 tab PO BEDTIME 11/19/18 Ferrous Sulfate [Ferrous Sulfate*] 1 tab PO BID 11/19/18 Magnesium Oxide [Magnesium] 1 tab PO DAILY 11/19/18 Pantoprazole [Protonix Tab*] 40 mg PO BID #60 tab 11/20/18 Amlodipine [Norvasc*] 2.5 mg PO DAILY #14 tab 02/20/22 Blood Sugar Diagnostic [Test Strips] 1 each MC Q6HR #120 strip 02/20/22 Cefdinir [Cefdinir*] 300 mg PO BID #14 cap 02/20/22 Doxycycline Monohydrate 100 mg PO BID #14 02/20/22 - Past Medical/Surgical History Diabetic: Yes -: DM -: HTN -: peptic ulcers -: CAD s/p CABG -: COPD -: HTN -: Prior CVA -: triple bypass -: stents - Family History Father -: Cancer - Social History Smoking Status: Former smoker (2 packs/day for 20-30 years (quit ~1981)) Alcohol use: No CD- Drugs: No Caffeine use: No Review of Systems General: Unremarkable Eyes: Unremarkable ENT: Unremarkable Respiratory: Shortness of Breath, SOB with Excertion Cardiovascular: Orthopnea, Paroxysmal Noc. Dyspnea Gastrointestinal: Unremarkable Genitourinary: Unremarkable Musculoskeletal: Unremarkable Integumentary: Unremarkable Neurological: Unremarkable Physical Examination - Vital Signs Temperature: 98.7 F Blood Pressure: 134/70 Pulse: 75 Respirations: 19 Pulse Ox (%): 96 (room air) - Physical Exam General: Alert, In no apparent distress HEENT: Atraumatic, PERRLA, Mucous membr. moist/pink, EOMI, Sclerae nonicteric Neck: Supple, JVD distended Respiratory: Diminished, Crackles/rales (bibasilar) Cardiovascular: Regular rate/rhythm, Normal S1 S2, No gallops, No rubs, No murmurs, Edema (3+ bilateral pitting) Gastrointestinal: Normal bowel sounds, Soft and benign, Non-distended, No tenderness, No rebound, No guarding Musculoskeletal: No clubbing Integumentary: No rashes Neurological: Normal speech, Cranial nerves 3-12 intact, Normal affect - Studies Laboratory Data (last 24 hrs) 03/12/22 09:11: PT 12.0, INR 1.09 03/12/22 09:11: WBC 10.30, Hgb 10.7 L, Hct 31.5 L, Plt Count 338 03/12/22 09:11: Sodium 141, Potassium 4.1, BUN 23 H, Creatinine 1.63 H, Glucose 75, Magnesium 2.7 H, Total Bilirubin 0.4, AST 21, ALT 17, Alkaline Phosphatase 78 Microbiology Data (last 24 hrs): 03/12/22 09:13 Nasopharnyx Influenza Type A Antigen Screen - Final 03/12/22 09:13 Nasopharnyx Influenza Type B Antigen Screen - Final Assessment and Plan - Plan # Acute on Chronic Decompensated Diastolic Congestive Heart Failure with Preserved Ejection Fraction # Severe Pulmonary Hypertension # Moderate Mild Regurgitation # Mild-Moderate Tricuspid Regurgitation He presents with symptoms of shortness of breath, dyspnea on exertion, lower extremity edema, and orthopnea. On exam, he demonstrates pulmonary crackles, bilateral lower extremity edema, and jugular venous distension. At this time, will admit for diuresis and medical optimization. - Consult Cardiology and spoke with Dr. Oliveros - recommendations appreciated - Transthoracic echocardiogram (02/20/2022): - "Normal left ventricular ejection fraction 55-60%. Left atrial enlargement. Mild to moderate tricuspid regurgitation. Moderate mitral regurgitation. Mild aortic regurgitation. Moderate diastolic dysfunction. Severe pulmonary hypertension with right ventricular systolic pressure > 60 mmHg. - Diuresis with IV furosemide for today - Denies taking TYSON-inhibitor/ARB or beta-vira at home - Will need to be started on these if blood pressure allows - Hold off on beta-vira in acute decompensated CHF - NT-Pro BNP = 8,438 - Daily weights - Strict I/O - Cardiac diet, 1.5 L fluid restriction, 2 g Na restriction # Non-ST Segment Elevation Myocardial Infarction # Coronary Artery Disease s/p CABG Based on history and physical examination, cannot exclude ischemia as a possible etiology of his chest pain - Evaluation thus far: - EKG: without STEMI criteria, trend - Serial troponin, first was 1315.3 - Chest x-ray = consistent with pulmonary edema - D-Dimer = 780 - No need to evaluate for PE given normal age-adjusted d-dimer and the fact that he is already on enoxaparin - Management plan: - Consult Cardiology and spoke with Dr. Oliveros- recommendations appreciated - S/P aspirin 324 mg PO x 1 in ED - Start daily baby aspirin + atorvastatin - If cardiac ischemia confirmed, plan to start beta-vira, TYSON-inhibitor/ARB as tolerated # Chronic Kidney Disease Stage III - Creatinine = 1.63 (near baseline) - Monitor creatinine and urine output - Renally dose medications # Type II Diabetes Mellitus - Recently admitted for neuroglycopenia - Monitor glucose levels - If persistently elevated, start correction scale insulin # Chronic Obstructive Pulmonary Disease # Hypertension - Stable, continue home medications Discharge Plan: Home Plan to discharge in: Greater than 2 days - Advance Directives Does patient have a Living Will: Yes Does patient have a Durable POA for Healthcare: Yes - Code Status/Comfort Care Code Status Assessed: Yes Code Status: Full Code
[2022-03-12 12:20] VITALS: BMI 21.7
--- NOTE | 2022-03-12 15:04 | CON ---
Date of Consultation: 03/12/2022 Reason For Consultation: Congestive heart failure. History Of Present Illness: Mr. De Guzman is an 87-year-old white man. He has a history of CABG, CO PD, diabetes, hypertension, CVA, dementia, and possible seizure disorder. Came in with shortness of breath, elevated troponin, elevated BNP. No chest pain reported. Denied any nausea, vomiting, diaph oresis. Denied any fever or chills. He follows up with Dr. Salazar at [facility]. Echocardiogram in 2021 this year earlier showed diastolic congestive heart failure, severe pulmonary hypertension, m oderate mitral regurgitation, mild aortic regurgitation, and [id number] tricuspid regurgitation . Past Medical History: As stated above. Allergies: NONE. Review of Systems: Negative. Social History: Negative. Family History: Noncontributory. Medications: At home include Norvasc, Protonix, iron, and donepezil. Physical Examination: General: He was alert and oriented x3. He appeared his stated age. Vital Signs: Stable, afebrile, sinus rhythm. HEENT: Negative. Neck: Supple without any bruit, lymphadenopathy, JVD, or thyromegaly. Chest: Clear to auscultation and percussion. Cardiac: Revealed a regular rhythm and rate. Mitral regurgitation murmur, tricuspid regurgitation m urmur. No gallops or rubs. Abdomen: Benign. Extremities: Revealed 1+ edema to the knees. Diagnostic Data: Chest x-ray showed bilateral pleural effusions, possible mild volume overload and C OPD. EKG was nonspecific. D-dimer is 780, creatinine 1.63, hemoglobin 10.7, and troponin 1229. Impression And Plan: 1.Acute on chronic diastolic congestive heart failure. 2.Severe pulmonary hypertension. 3.Moderate mitral regurgitation. 4.Mild aortic regurgitation. 5.Renal insufficiency stage III. 6.Mild anemia. 7.Elevated D-dimer, troponin and BNP secondary to congestive heart failure. The patient also has a history of diabetes, hypertension, status post coronary artery bypass graft, history of cerebrovascul ar accident, dementia, and seizure, although his other problems are stable. I do not think we are de aling with acute coronary syndrome. I do not think we need to do a heart catheterization at this poi nt. He has already had an echocardiogram this month and he does not need that repeated. I think he needs to be on a calcium channel vira, which he is already on. I think we need to start a low dos e Lasix as well as a low dose beta-vira such as carvedilol. He really should be on at least a bab y aspirin considering his previous history. We will see how he progresses with that regimen and I th ink he can follow up with Dr. Salazar in the near future. I will continue to follow him. I think at th is point gentle diuresis is the arce. MONSTER/MAYURI Voice ID: [id number] Report ID: [id number]
[2022-03-12] MEDS: FUROSEMIDE 40 MG/4 ML VIAL IV SCH (17:00)
[2022-03-12] MEDS: ENOXAPARIN 80 MG/0.8 ML SQ SCH (21:00)
[2022-03-12] MEDS: ATORVASTATIN 40 MG TAB PO SCH (21:00)
[2022-03-12] MEDS ORDERED: ATORVASTATIN 40 MG TAB ONE (22:06)
[2022-03-13 02:58] LABS: Absolute Lymphocytes (CBC) 1.3 K/uL (0.7-4.9); Hematocrit 32.7 % (39.6-49.0); Lymphocytes % 13.6 % (15.3-44.8); MPV 8.1 fL (7.6-11.3); RBC Red Blood Cell Count 3.99 M/uL (4.33-5.43)
[2022-03-13 02:59] LABS: Protime INR 1.19
[2022-03-13 03:37] LABS: Albumin 2.9 g/dL (3.4-5.0); Bilirubin Total 0.4 mg/dL (0.2-1.0); Magnesium 2.5 mg/dL (1.8-2.4); Phosphorus 3.5 mg/dL (2.5-4.9); Potassium 4.4 mmol/L (3.5-5.1); Protein, Total 6.3 g/dL (6.4-8.2)
--- NOTE | 2022-03-13 08:09 | EKG ---
Test Date: 2022-03-12 Test Time: 08:59:12 Board Liner Operator: TP MEASUREMENT RESULTS: Intervals: Rate: 82 VT: 168 QRSD: 102 QT: 396 QTc: 462 [place]: P: 87 VT: 168 QRS: 72 T: -28 INTERPRETIVE STATEMENTS: Normal sinus rhythm with sinus arrhythmia Nonspecific T wave abnormality Prolonged QT Abnormal ECG Compared to ECG 02/18/2022 12:32:55 T-wave abnormality now present Prolonged QT interval now present Ventricular premature complex(es) no longer present ST (T wave) deviation no longer present Electronically Signed On 03-13-22 08:06:31 CDT by Romero Oliveros
[2022-03-13] MEDS: ENOXAPARIN 80 MG/0.8 ML SQ SCH ×2 (09:00→21:18)
[2022-03-13] MEDS: FUROSEMIDE 40 MG/4 ML VIAL IV SCH ×2 (09:00→16:42)
[2022-03-13] MEDS: ASPIRIN 81 MG CHEWABLE TABLET PO SCH (09:00)
[2022-03-13] MEDS ORDERED: ENOXAPARIN 80 MG/0.8 ML SQ ONE (09:18)
[2022-03-13] MEDS ORDERED: FUROSEMIDE 40 MG/4 ML VIAL ONE (09:18)
[2022-03-13] MEDS ORDERED: ASPIRIN EC 81 MG TAB PO ONE (09:18)
[2022-03-13 15:37] VITALS: O2SAT 100
[2022-03-13] MEDS: ATORVASTATIN 40 MG TAB PO SCH (21:18)
--- NOTE | 2022-03-14 00:21 | P.PN ---
Subjective Date of Service: 03/13/22 Subjective: No new changes, No C/O voiced, Improving Review of Systems 10-point ROS is otherwise unremarkable Physical Examination - Vital Signs Temperature: 97.3 F Blood Pressure: 132/83 Pulse: 96 Respirations: 18 Pulse Ox (%): 96 - Physical Exam General: Alert, In no apparent distress, Oriented x3 Respiratory: Clear to auscultation bilaterally, Normal air movement Cardiovascular: Regular rate/rhythm, Normal S1 S2 Gastrointestinal: Normal bowel sounds, Soft and benign, Non-distended, No tenderness Musculoskeletal: No clubbing, No tenderness, Swelling Neurological: Sensation intact, Cranial nerves 3-12 intact - Studies Medications List Reviewed: Yes Assessment & Plan - Problems (Diagnosis) (1) CHF exacerbation Current Visit: No Status: Chronic (2) COPD (chronic obstructive pulmonary disease) Current Visit: No Status: Chronic Qualifiers: (3) Coronary artery disease Current Visit: No Status: Chronic (4) Diabetes mellitus Current Visit: No Status: Chronic Qualifiers: Diabetes mellitus type: type 2 (5) HTN (hypertension) Current Visit: No Status: Chronic (6) S/P triple vessel bypass Current Visit: No Status: Chronic - Plan 1. ECHOCARDIOGRAM REVIEWED 2. STRICT BP CONTROL 3. OOB AND AMBULATE 4. CARDIOLOGY CONSULTATION APPRECIATED 5. GENTLE DIURESIS 6. STRICT I'S AND O'S 7. REPEAT CXR 8. DAILY WEIGHTS 9. EDUCATION REGARDING DIET AND TREATMENT OF CONGESTIVE HEART FAILURE - Advance Directives Does patient have a Living Will: Yes Does patient have a Durable POA for Healthcare: Yes - Code Status/Comfort Care Code Status: Full Code
[2022-03-14 04:10] LABS: Absolute Lymphocytes (CBC) 2.3 K/uL (0.7-4.9); Hematocrit 33.5 % (39.6-49.0); Lymphocytes % 21.2 % (15.3-44.8); MCV 83.7 fL (80-100); MPV 8.5 fL (7.6-11.3)
[2022-03-14 04:35] LABS: Albumin 2.9 g/dL (3.4-5.0); Bilirubin Total 0.4 mg/dL (0.2-1.0); Potassium 3.9 mmol/L (3.5-5.1); Protein, Total 6.4 g/dL (6.4-8.2)
--- NOTE | 2022-03-14 07:12 | PN ---
Date of Progress Note: 03/13/2022 Mr. De Guzman came in with acute on chronic diastolic congestive heart failure, has known severe pulm onary hypertension; mitral regurgitation; mild aortic regurgitation; renal insufficiency; stage III a nemia. He came in with elevated D-dimer, troponin, and BNP secondary to CHF. He has a history of hy pertension, diabetes, CABG, cerebrovascular disease, dementia, and seizure in the past. He did not h ave an acute coronary syndrome. Echocardiogram was just done recently and was not repeated. His vit al signs today are stable. His glucose was 138. His creatinine has gone up to 1.86. Troponin came down to 1100. His I's and O's are adequate. Present regimen include aspirin, Lipitor, Lovenox, and Lasix. We may have to back off on his diuresis. His blood pressure is adequate and I think using lo w-dose beta-vira on him, such as carvedilol or low-dose calcium vira may be reasonable. He can go home whenever it is okay with admitting physician. MONSTER/MAYURI Voice ID: [id number] Report ID: [id number]
[2022-03-14] MEDS: ASPIRIN 81 MG CHEWABLE TABLET PO SCH (09:00)
[2022-03-14] MEDS: FUROSEMIDE 40 MG/4 ML VIAL IV SCH (09:00)
[2022-03-14] MEDS: ENOXAPARIN 80 MG/0.8 ML SQ SCH (09:00)
[2022-03-14 09:31] VITALS: BP 146/64; TEMP 97.9
== END 2022-03-14 12:19 | disposition home or self-care (01) | DRG 291 ==
LOC: ER 08:49 → ERHOLD 11:07 → 4TH 03-13 15:06
PROVIDERS: ADMIT Internal Medicine; ATTEND Internal Medicine
DX: I13.0 Hypertensive heart and chronic kidney disease with heart failure and stage 1 through stage 4 chronic kidney disease, or unspecified chronic kidney disease (principal); I50.33 Acute on chronic diastolic (congestive) heart failure; N18.30 Chronic kidney disease, stage 3 unspecified; E11.22 Type 2 diabetes mellitus with diabetic chronic kidney disease; J44.9 Chronic obstructive pulmonary disease, unspecified; I25.10 Atherosclerotic heart disease of native coronary artery without angina pectoris; I27.20 Pulmonary hypertension, unspecified; I07.1 Rheumatic tricuspid insufficiency; I34.0 Nonrheumatic mitral (valve) insufficiency; I35.1 Nonrheumatic aortic (valve) insufficiency; F03.90 Unspecified dementia, unspecified severity, without behavioral disturbance, psychotic disturbance, mood disturbance, and anxiety; Z95.1 Presence of aortocoronary bypass graft; Z86.73 Personal history of transient ischemic attack (TIA), and cerebral infarction without residual deficits; Z87.891 Personal history of nicotine dependence; Z20.822 Contact with and (suspected) exposure to COVID-19
CPT/HCPCS: 36415; 71045; 80048; 80053; 80076; 82947; 83735; 83880; 84100; 84484; 85025; 85379; 85610; 87804; 93005; 96372; 96374; 99284; J1940; U0003

== ENCOUNTER 2022-06-27 01:19 | Inpatient (IN) | payer OTHER ==
--- OUTSIDE RECORDS SUMMARY | 2022-06-27 01:24 | XMS REPORT | Continuity of Care Document ---
:1935 Author Organization [facility] t Address [address] [place] [address] [address]. [address] [place] [address] Care Team Providers Name Role Phone Tobias DO Claudia Adeline Primary Care Physician Finn [place] Attending Clinician Unavailable Falguni Parker MA Attending Clinician Unavailable Melisa HUERTA, Roc Ortiz Attending Clinician Mg-Mbayo_A_AH Attending Clinician Unavailable Mg-Mbayo_A_AH Admitting Clinician Unavailable Payers Payer Name Policy Type Policy Number Effective Date Expiration Date S maryanne AETNA MEDICARE C1 [id number] 2020 [facility] 00:00:[facility] - [facility] AETNA MEDICARE C1 [id number] 2020 Common S pirit 00:00:00 - [facility] AETNA MEDICARE C1 [id number] 2020 Common S pirit 00:00:00 - [facility] AETNA MEDICARE C1 [id number] 2020 Common S pirit 00:00:00 - [facility] AETNA MEDICARE C1 [id number] 2020 Common S pirit 00:00:00 - [facility] AETNA MEDICARE C1 [id number] 2020 Common S pirit 00:00:00 - [facility] [place] [id number] 2019 - [employer] 00:00:00 (MEDICARE REPLACEMENT/ADV ANTAGE - HMO) Problems Condition Condition Condition Status Onset Resolution Last Treating Co mments Source Name Details Category Date Date Treatment Clinician Date Hyperchole Hyperchole Problem Active V illage sterolemia sterolemia 4-09 Fa dontrell 00:00: Practic 00 e Normal Normal Problem Active [facility] body mass Body Mass 4-09 Fami ly index Index 00:00: Practic 00 e 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 Added automatic ally from request for surgery [id number] Angina Angina Disease Active 2017-07 [facility] pectoris pectoris 0-30 st 00:00: Hospita 00 l Carotid Carotid Disease Active [facility] artery artery 5-02 st disease disease 00:00: Hospita 00 l SOB SOB Disease Active [facility] (shortness (shortness 3-20 st of breath) of breath) 00:00: Ho spita 00 l History of History of Disease Active M ethodi coronary coronary 3-20 st artery artery 00:00: Hospita bypass bypass 00 l graft graft Bilateral Bilateral Disease Active Met hodi carotid carotid 9-26 st artery artery 00:00: Hospita disease disease 00 l CAD in CAD in Disease Active [facility] [place] 9-12 st artery artery 00:00: Hospita 00 l Bilateral Bilateral Disease Active [facility] carotid carotid 9-12 st bruits bruits 00:00: Hospita 00 l PAD PAD Disease Active [facility] (periphera (periphera 9-12 st l artery l artery 00:00: Hospit a disease) disease) 00 l Stenosis Stenosis Disease Active 2015-07 [facility] di of carotid of carotid 0-19 st artery artery 00:00: Hospita 00 l Coronary Coronary Disease Active 2015-07 [facility] di arterioscl arterioscl 0-19 st erosis erosis 00:00: Hospita 00 l Stented Stented Disease Active 2015-07 [facility] coronary coronary 0-19 st artery artery 00:00: Hospita 00 l Peripheral Peripheral Disease Active 2015-07 M ethodi arterial arterial 0-12 st occlusive occlusive 00:00: Hosp eli disease disease 00 l [id number] Type 2 [place] [id number] diabetes Spirit mellitus - [facility] with [facility] unspecifie Center d whether residential insulin use Mixed Hyperlipid Problem Active Commo n hyperlipid emia, Spirit emia mixed - [facility] 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 Dementia Dementia Problem Active Commo n Spirit [facility] Peripheral Peripheral Problem Active C ommon vascular vascular Spirit disease disease - [facility] Essential Benign Problem Active Common hypertensi essential Spi rit on HTN - [facility] [id number] Chronic Problem Active Common obstructiv Spirit e - [facility]I pulmonary [facility] unspecifie Medica l d COPD Center type Seizure Seizure Problem Active Common disorder disorder Spirit [facility] [id number] Patient's Problem Active Com mon noncomplia Spirit nce with - CHI dietary [facility] 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 [id number] Type 2 Problem Active Common diabetes Spirit mellitus - [facility] with other diabetic [facility] kidney Medical complicati Center on [id number] Proteinuri Problem Active Com mon a, Spirit unspecifie - CHI d type [facility] Allergies, Adverse Reactions, Alerts Allergy Allergy Status Severity Reaction(s) Onset Inactive Treating Comm ents Source Name Type Date Date Clinician No Known Propensi Active 2015-07 Method i Drug ty to 0-19 Allerg adverse 00:00: Hospita s reaction 00 l s to drug Family History Family Member Diagnosis Comments Start Date Stop Date Source Natural sister Diabetes type II Meth [facility] Natural father CABG/Stent [facility] Natural mother [facility] Social History Social Habit Start Date Stop Date Quantity Comments Source History of Tobacco Common Spirit - Use [facility] Cigarettes smoked 2019-06-10 2019-06-[address] [facility] st current (pack per 00:00:00 00:00:00 Hospita l day) - Reported Cigarette 2019-06-10 2019-06-10 [facility] pack-years 00:00:00 00:00:00 Hospital Tobacco use and 2019-06-10 2019-06-10 Smokeless tobacco [facility] exposure 00:00:00 00:00:00 non-user Hospital Alcohol intake 2019-06-10 2019-06-10 Current Mandaen 00:00:00 00:00:00 non-drinker of Hospital alcohol (finding) Tobacco Comment 2018-06-26 2018-06-26 quit 30 years ago [facility] 00:00:00 00:00:00 Hospital Sex Assigned At [birth year] Mandaen 00:00:00 00:00:00 Hospital Smoking Status Start Date Stop Date Source Former Smoker 2021-06-16 00:00:00 2021-06-16 00:00:00 Common S pirit - [facility] Medications Ordered Filled Start Stop Current Ordering Indication Dosage Frequency Signature Comments Components Source Medication Medication Date Date Medication? Clinician (SIG) Name Name Albuterol Albuterol Yes Finn 1 puff as Common Sulfate HFA Sulfate HFA 1-13 [place] needed Spirit 00:00: - [facility]I 00 [facility] Albuterol Albuterol No 1{puff_ Albuterol Sulfate HFA Sulfate HFA 1-13 as_need Sulfate 108 (90 108 (90 00:00: ed} HFA 108 Base) Base) 00 (90 Base) MCG/ACT MCG/ACT MCG/ACT Albuterol Albuterol 2020-0 No 1{puff_ Albuterol Sulfate HFA Sulfate HFA 1-13 as_need Sulfate 108 (90 108 (90 00:00: ed} HFA 108 Base) Base) 00 (90 Base) MCG/ACT MCG/ACT MCG/ACT Albuterol Albuterol 2020-0 No 1{puff_ Albuterol Sulfate HFA Sulfate HFA 1-13 as_need Sulfate 108 (90 108 (90 00:00: ed} HFA 108 Base) Base) 00 (90 Base) MCG/ACT MCG/ACT MCG/ACT Albuterol Albuterol 2020-0 No 1{puff_ Sulfate HFA Sulfate HFA 1-13 as_need 108 (90 108 (90 00:00: ed} Base) Base) 00 MCG/ACT MCG/ACT Albuterol Albuterol 2020-0 No 1{puff_ Albuterol Sulfate HFA Sulfate HFA 1-13 as_need Sulfate 108 (90 108 (90 00:00: ed} HFA 108 Base) Base) 00 (90 Base) MCG/ACT MCG/ACT MCG/ACT Albuterol Albuterol 2020-0 No 1{puff_ Albuterol Sulfate HFA Sulfate HFA 1-13 as_need Sulfate 108 (90 108 (90 00:00: ed} HFA 108 Base) Base) 00 (90 Base) MCG/ACT MCG/ACT MCG/ACT Albuterol Albuterol 2020-0 No 1{puff_ Albuterol Sulfate HFA Sulfate HFA 1-13 as_need Sulfate 108 (90 108 (90 00:00: ed} HFA 108 Base) Base) 00 (90 Base) MCG/ACT MCG/ACT MCG/ACT Anoro Anoro 2020-0 2020- No Finn take 1 Common Ellipta Ellipta -13 06-29 [place] puff Spirit 00:00: 00:00 - CHI 00 :00 [facility] ferrous 2018-07 Yes 325mg Q.5D Take 325 Metho di sulfate 325 1-[address] (65 FE) MG 14:14: mouth 2 Hosp eli tablet 15 (two) l times a day with meals. furosemide 2018-07 Yes 80mg QD Take 80 mg M ethodi (LASIX) 80 1-[address] MG tablet 14:14: daily. Hospit a 15 l donepezil 2018-07 Yes 10mg QD Take 10 mg Me thodi (ARICEPT) 1-[address] 10 MG 14:14: nightly. Hospita tablet 15 l insulin 2018-07 Yes 36U QD Inject 36 Metho di detemir 1-[address] (LEVEMIR) 14:14: under the Hos venus 100 unit/mL 15 skin l injection daily. levETIRAcet 2018-07 Yes 500mg Q.5D Take 500 M ethodi am (KEPPRA) 1-[address] 500 MG 14:14: mouth 2 Hospita tablet 15 (two) l times a day. atorvastati 2018-07 Yes TAKE 1 Meth gia n (LIPITOR) 0-[address] 40 MG 00:00: MOUTH Hospita tablet 00 EVERY l NIGHT losartan Yes Methodi (COZAAR) 50 5-04 st MG tablet 00:00: Hospita 00 l pantoprazol Yes 40mg Q.5D Take 40 mg Methodi e 5-[address] (PROTONIX) 00:00: (two) Hospit a 40 MG EC 00 times a l tablet day. aspirin Yes TK 1 T PO Metho di (ECOTRIN) 3-[address] 81 MG 00:00: DAYS Hospita enteric 00 l coated tablet One Touch One Touch Yes Finn 1 lancet Common Delica Delica 109 [place] Spirit Lancets Lancets 00:00: - CHI 00 [facility] OneTouch OneTouch Yes Finn 1 test C ommon Verio Verio 09 [place] strip Spirit 00:00: - CHI 00 [facility] One Touch One Touch No QD One Touch Delica Delica 1-09 Delica Lancets Lancets 00:00: Lancets Lancet Lancet 00 Lancet One Touch One Touch No QD One Touch Delica Delica 1-09 Delica Lancets Lancets 00:00: Lancets Lancet Lancet 00 Lancet One Touch One Touch No QD One Touch Delica Delica 1-09 Delica Lancets Lancets 00:00: Lancets Lancet Lancet 00 Lancet One Touch One Touch No QD Delica Delica 07-31 Lancets Lancets 00:00: Lancet Lancet 00 One Touch One Touch No QD One Touch Delica Delica 07-31 Delica Lancets Lancets 00:00: Lancets Lancet Lancet 00 Lancet One Touch One Touch No QD One Touch Delica Delica 07-31 Delica Lancets Lancets 00:00: Lancets Lancet Lancet 00 Lancet One Touch One Touch No QD One Touch Delica Delica 07-31 Delica Lancets Lancets 00:00: Lancets Lancet Lancet 00 Lancet Aricept Aricept Yes Finn 1 tablet Com mon [place] at bedtime [facility] Ferrous Ferrous Yes Finn 1 tablet Com mon Sulfate Sulfate [place] [facility] Hemocyte Hemocyte Yes Finn 1 capsule Common Plus Plus [place] [facility] Donepezil Donepezil Yes Finn TAKE 1 C ommon HCl HCl [place] TABLET BY Spirit MOUTH - CHI EVERYDAY St AT BEDTIME [facility] BD Pen BD Pen Yes Finn USE Common Needle Katrina Needle Katrina [place] DIRECTED Spirit U/F U/F DAILY [facility] Plavix Plavix Yes Finn 1 tablet Commo n [place] [facility] Levemir Levemir Yes Finn INJECT Commo n FlexTouch FlexTouch [place] UNDER THE Spirit SKIN 36 - CHI UNITS St EVERY DAY [facility] Keppra Keppra Yes Finn 1 tablet Commo n [place] [facility] Furosemide Furosemide Yes Finn 1 tablet Common [place] [facility] Fish Oil Fish Oil Yes Finn 1 capsule Common [place] [facility] Cozaar Cozaar Yes Finn 1 tablet Commo n [place] [facility] Levetiracet Levetiracet Yes Finn TAKE 1 Common am am [place] TABLET BY Spirit MOUTH - CHI TWICE A St DAY [facility] Losartan Losartan Yes Finn TAKE 1 Com mon Potassium Potassium [place] TABLET BY Spirit MOUTH - CHI EVERY DAY [facility] Aspir-81 Aspir-81 Yes Finn 1 tablet C ommon [place] Spirit - CHI [facility] Simvastatin Simvastatin Yes Finn 1 tablet Common [place] in the Spirit evening - CHI [facility] Clopidogrel Clopidogrel Yes Finn 1 tablet Common Bisulfate Bisulfate [place] Spir it - CHI [facility] Ferrous Ferrous Yes Finn TAKE 1 Commo n Sulfate Sulfate [place] TABLET BY Spi rit MOUTH - CHI TWICE A DAY [facility] Victoza Victoza Yes Finn Inject 0.6 C ommon [place] mg/day x 1 Spirit week then - CHI 1.2 St mg[facility]day. [facility] Max 1.8 Medical mg/day Center OneTouch OneTouch No QD OneTouch Verio - Verio - Verio - Anoro Anoro No Anoro Ellipta Ellipta Ellipta 62.5-25 62.5-25 62.5-25 MCG/INH MCG/INH MCG/INH Cozaar 50 Cozaar 50 No 1{table QD Cozaar 50 MG MG t} MG Losartan Losartan No Losartan Potassium Potassium Potassium 50 MG 50 MG 50 MG Ferrous Ferrous No Ferrous Sulfate 325 Sulfate 325 Sulfate (65 Fe) MG (65 Fe) MG 325 (65 Fe) MG Levemir Levemir No Levemir FlexTouch FlexTouch FlexTouch 100 UNIT/ML 100 UNIT/ML 100 UNIT/ML Donepezil Donepezil No Donepezil HCl 10 MG HCl 10 MG HCl 10 MG Furosemide Furosemide No Furosemide 40 MG 40 MG 40 MG Multi Multi No Multi Vitamin Vitamin Vitamin Aricept 10 Aricept 10 No 1{table QD Aricept 10 MG MG t_at_be MG dtime} Aspir- 81 - 81 No 1{table QD Aspir-81 MG MG t} 81 MG levETIRAcet levETIRAcet No levETIRAce am 500 MG am [address] 500 MG Clopidogrel Clopidogrel No 1{table QD Clopidogre Bisulfate Bisulfate t} l 75 MG 75 MG Bisulfate 75 MG Victoza 18 Victoza 18 No QD Victoza 18 MG/3ML MG/3ML MG/3ML Ferrous Ferrous No 1{table BID Ferrous Sulfate 325 Sulfate 325 t} Sulfate (65 Fe) MG (65 Fe) MG 325 (65 Fe) MG Levemir Levemir No QD Levemir FlexTouch FlexTouch FlexTouch 100 UNIT/ML 100 UNIT/ML 100 UNIT/ML Hemocyte Hemocyte No 1{capsu QD Hemocyte Plus 106-1 Plus 106-1 le} Plus 106-1 MG MG MG Simvastatin Simvastatin No 1{table QD Simvastati 80 MG 80 MG t_in_th n 80 MG e_eveni ng} Fish Oil Fish Oil No 1{capsu QD Fish Oil 1000 MG 1000 MG le} 1000 MG Keppra 500 Keppra 500 No 1{table BID Keppra 500 MG MG t} MG BD Pen BD Pen No BD Pen Needle Katrina Needle Katrina Needle U/F 32G X 4 U/F 32G X 4 Katrina U/F MM MM 32G X 4 MM BD Pen BD Pen No BD Pen Needle Katrina Needle Katrina Needle U/F 32G X 4 U/F 32G X 4 Katrina U/F MM MM 32G X 4 MM Hemocyte Hemocyte No 1{capsu QD Hemocyte Plus 106-1 Plus 106-1 le} Plus 106-1 MG MG MG Levemir Levemir No Levemir FlexTouch FlexTouch FlexTouch 100 UNIT/ML 100 UNIT/ML 100 UNIT/ML Simvastatin Simvastatin No 1{table QD Simvastati 80 MG 80 MG t_in_th n 80 MG e_eveni ng} Donepezil Donepezil No Donepezil HCl 10 MG HCl 10 MG HCl 10 MG Aricept 10 Aricept 10 No 1{table QD Aricept 10 MG MG t_at_be MG dtime} Anoro Anoro No Anoro Ellipta Ellipta Ellipta 62.5-25 62.5-25 62.5-25 MCG/INH MCG/INH MCG/INH Ferrous Ferrous No Ferrous Sulfate 325 Sulfate 325 Sulfate (65 Fe) MG (65 Fe) MG 325 (65 Fe) MG Losartan Losartan No Losartan Potassium Potassium Potassium 50 MG 50 MG 50 MG levETIRAcet levETIRAcet No levETIRAce am 500 MG am [address] 500 MG Aspir-81 81 Aspir-81 81 No 1{table QD Aspir-81 MG MG t} 81 MG Multi Multi No Multi Vitamin Vitamin Vitamin Victoza 18 Victoza 18 No QD Victoza 18 MG/3ML MG/3ML MG/3ML Fish Oil Fish Oil No 1{capsu QD Fish Oil 1000 MG 1000 MG le} 1000 MG Furosemide Furosemide No Furosemide 40 MG 40 MG 40 MG Clopidogrel Clopidogrel No 1{table QD Clopidogre Bisulfate Bisulfate t} l 75 MG 75 MG Bisulfate 75 MG Ferrous Ferrous No 1{table BID Ferrous Sulfate 325 Sulfate 325 t} Sulfate (65 Fe) MG (65 Fe) MG 325 (65 Fe) MG OneTouch OneTouch No QD OneTouch Verio - Verio - Verio - Cozaar 50 Cozaar 50 No 1{table QD Cozaar 50 MG MG t} MG Keppra 500 Keppra 500 No 1{table BID Keppra 500 MG MG t} MG Furosemide Furosemide No 1{table BID Furosemide 40 MG 40 MG t} 40 MG Levemir Levemir No QD Levemir FlexTouch FlexTouch FlexTouch 100 UNIT/ML 100 UNIT/ML 100 UNIT/ML OneTouch OneTouch No QD OneTouch Verio - Verio - Verio - Aricept 10 Aricept 10 No 1{table QD Aricept 10 MG MG t_at_be MG dtime} Cozad 3 Cozad 3 No Cozad 3 Fish Oil Fish Oil No 1{capsu QD Fish Oil 1000 MG 1000 MG le} 1000 MG Simvastatin Simvastatin No 1{table QD Simvastati 80 MG 80 MG t_in_th n 80 MG e_eveni ng} Ferrous Ferrous No 1{table BID Ferrous Sulfate 325 Sulfate 325 t} Sulfate (65 Fe) MG (65 Fe) MG 325 (65 Fe) MG Hemocyte Hemocyte No 1{capsu QD Hemocyte Plus 106-1 Plus 106-1 le} Plus 106-1 MG MG MG Levemir Levemir No Levemir FlexTouch FlexTouch FlexTouch 100 UNIT/ML 100 UNIT/ML 100 UNIT/ML BD Pen BD Pen No BD Pen Needle Katrina Needle Katrina Needle U/F 32G X 4 U/F 32G X 4 Katrian U/F MM MM 32G X 4 MM Furosemide Furosemide No 1{table BID Furosemide 40 MG 40 MG t} 40 MG Victoza 18 Victoza 18 No QD Victoza 18 MG/3ML MG/3ML MG/3ML Losartan Losartan No Losartan Potassium Potassium Potassium 50 MG 50 MG 50 MG Ferrous Ferrous No Ferrous Sulfate 325 Sulfate 325 Sulfate (65 Fe) MG (65 Fe) MG 325 (65 Fe) MG Levemir Levemir No QD Levemir FlexTouch FlexTouch FlexTouch 100 UNIT/ML 100 UNIT/ML 100 UNIT/ML Cozaar 50 Cozaar 50 No 1{table QD Cozaar 50 MG MG t} MG Aspir-81 81 Aspir-81 81 No 1{table QD Aspir-81 MG MG t} 81 MG Clopidogrel Clopidogrel No 1{table QD Clopidogre Bisulfate Bisulfate t} l 75 MG 75 MG Bisulfate 75 MG Anoro Anoro No Anoro Ellipta Ellipta Ellipta 62.5-25 62.5-25 62.5-25 MCG/INH MCG/INH MCG/INH Keppra 500 Keppra 500 No 1{table BID Keppra 500 MG MG t} MG Multi Multi No Multi Vitamin Vitamin Vitamin Furosemide Furosemide No Furosemide 40 MG 40 MG 40 MG Donepezil Donepezil No Donepezil HCl 10 MG HCl 10 MG HCl 10 MG levETIRAcet levETIRAcet No levETIRAce am 500 MG am [address] 500 MG Tylenol Tylenol No Tylenol OneTouch OneTouch No QD Verio - Verio - Aricept 10 Aricept 10 No 1{table QD MG MG t_at_be dtime} Cozad 3 Cozad 3 No Fish Oil Fish Oil No 1{capsu QD 1000 MG 1000 MG le} Simvastatin Simvastatin No 1{table QD 80 MG 80 MG t_in_th e_eveni ng} Ferrous Ferrous No 1{table BID Sulfate 325 Sulfate 325 t} (65 Fe) MG (65 Fe) MG Hemocyte Hemocyte No 1{capsu QD Plus 106-1 Plus 106-1 le} MG MG Levemir Levemir No FlexTouch FlexTouch 100 UNIT/ML 100 UNIT/ML BD Pen BD Pen No Needle Katrina Needle Katrina U/F 32G X 4 U/F 32G X 4 MM MM Furosemide Furosemide No 1{table BID 40 MG 40 MG t} Victoza 18 Victoza 18 No QD MG/3ML MG/3ML Losartan Losartan No Potassium Potassium 50 MG 50 MG Ferrous Ferrous No Sulfate 325 Sulfate 325 (65 Fe) MG (65 Fe) MG Levemir Levemir No QD FlexTouch FlexTouch 100 UNIT/ML 100 UNIT/ML Cozaar 50 Cozaar 50 No 1{table QD MG MG t} Aspir-81 81 Aspir-81 81 No 1{table QD MG MG t} Clopidogrel Clopidogrel No 1{table QD Bisulfate Bisulfate t} 75 MG 75 MG Anoro Anoro No Ellipta Ellipta 62.5-25 62.5-25 MCG/INH MCG/INH Keppra 500 Keppra 500 No 1{table BID MG MG t} Multi Multi No Vitamin Vitamin Furosemide Furosemide No 40 MG 40 MG Donepezil Donepezil No HCl 10 MG HCl 10 MG levETIRAcet levETIRAcet No am 500 MG am 500 MG Tylenol Tylenol No Keppra 500 Keppra 500 No 1{table BID Keppra 500 MG MG t} MG Fish Oil Fish Oil No 1{capsu QD Fish Oil 1000 MG 1000 MG le} 1000 MG OneTouch OneTouch No QD OneTouch Verio - Verio - Verio - Aspir-81 81 Aspir-81 81 No 1{table QD Aspir-81 MG MG t} 81 MG Furosemide Furosemide No 1{table BID Furosemide 40 MG 40 MG t} 40 MG Hemocyte Hemocyte No 1{capsu QD Hemocyte Plus 106-1 Plus 106-1 le} Plus 106-1 MG MG MG Ferrous Ferrous No 1{table BID Ferrous Sulfate 325 Sulfate 325 t} Sulfate (65 Fe) MG (65 Fe) MG 325 (65 Fe) MG Aricept 10 Aricept 10 No 1{table QD Aricept 10 MG MG t_at_be MG dtime} Levemir Levemir No QD Levemir FlexTouch FlexTouch FlexTouch 100 UNIT/ML 100 UNIT/ML 100 UNIT/ML BD Pen BD Pen No BD Pen Needle Katrina Needle Katrina Needle U/F 32G X 4 U/F 32G X 4 Katrina U/F MM MM 32G X 4 MM Anoro Anoro No Anoro Ellipta Ellipta Ellipta 62.5-25 62.5-25 62.5-25 MCG/INH MCG/INH MCG/INH Cozaar 50 Cozaar 50 No 1{table QD Cozaar 50 MG MG t} MG Clopidogrel Clopidogrel No 1{table QD Clopidogre Bisulfate Bisulfate t} l 75 MG 75 MG Bisulfate 75 MG Victoza 18 Victoza 18 No QD Victoza 18 MG/3ML MG/3ML MG/3ML Levemir Levemir No Levemir FlexTouch FlexTouch FlexTouch 100 UNIT/ML 100 UNIT/ML 100 UNIT/ML Losartan Losartan No Losartan Potassium Potassium Potassium 50 MG 50 MG 50 MG Simvastatin Simvastatin No 1{table QD Simvastati 80 MG 80 MG t_in_th n 80 MG e_eveni ng} Cozad 3 Cozad 3 No Cozad 3 Ferrous Ferrous No Ferrous Sulfate 325 Sulfate 325 Sulfate (65 Fe) MG (65 Fe) MG 325 (65 Fe) MG Multi Multi No Multi Vitamin Vitamin Vitamin Furosemide Furosemide No Furosemide 40 MG 40 MG 40 MG Donepezil Donepezil No Donepezil HCl 10 MG HCl 10 MG HCl 10 MG levETIRAcet levETIRAcet No levETIRAce am 500 MG am [address] 500 MG Tylenol Tylenol No Tylenol Cozaar 50 Cozaar 50 No 1{table QD Cozaar 50 MG MG t} MG Aspir-81 81 Aspir-81 81 No 1{table QD Aspir-81 MG MG t} 81 MG Hemocyte Hemocyte No 1{capsu QD Hemocyte Plus 106-1 Plus 106-1 le} Plus 106-1 MG MG MG Losartan Losartan No Losartan Potassium Potassium Potassium 50 MG 50 MG 50 MG Aricept 10 Aricept 10 No 1{table QD Aricept 10 MG MG t_at_be MG dtime} Victoza 18 Victoza 18 No QD Victoza 18 MG/3ML MG/3ML MG/3ML Simvastatin Simvastatin No 1{table QD Simvastati 80 MG 80 MG t_in_th n 80 MG e_eveni ng} Levemir Levemir No QD Levemir FlexTouch FlexTouch FlexTouch 100 UNIT/ML 100 UNIT/ML 100 UNIT/ML Anoro Anoro No Anoro Ellipta Ellipta Ellipta 62.5-25 62.5-25 62.5-25 MCG/INH MCG/INH MCG/INH Furosemide Furosemide No 1{table BID Furosemide 40 MG 40 MG t} 40 MG Fish Oil Fish Oil No 1{capsu QD Fish Oil 1000 MG 1000 MG le} 1000 MG Keppra 500 Keppra 500 No 1{table BID Keppra 500 MG MG t} MG Clopidogrel Clopidogrel No 1{table QD Clopidogre Bisulfate Bisulfate t} l 75 MG 75 MG Bisulfate 75 MG OneTouch OneTouch No OneTouch Verio - Verio - Verio - Cozad 3 Cozad 3 No Cozad 3 Levemir Levemir No Levemir FlexTouch FlexTouch FlexTouch 100 UNIT/ML 100 UNIT/ML 100 UNIT/ML BD Pen BD Pen No BD Pen Needle Katrina Needle Katrina Needle 2nd Gen 32G 2nd Gen 32G Katrina 2nd X 4 MM X 4 MM Gen 32G X 4 MM Ferrous Ferrous No 1{table BID Ferrous Sulfate 325 Sulfate 325 t} Sulfate (65 Fe) MG (65 Fe) MG 325 (65 Fe) MG Ferrous Ferrous No Ferrous Sulfate 325 Sulfate 325 Sulfate (65 Fe) MG (65 Fe) MG 325 (65 Fe) MG Multi Multi No Multi Vitamin Vitamin Vitamin Furosemide Furosemide No Furosemide 40 MG 40 MG 40 MG Donepezil Donepezil No Donepezil HCl 10 MG HCl 10 MG HCl 10 MG levETIRAcet levETIRAcet No levETIRAce am 500 MG am [address] 500 MG Tylenol Tylenol No Tylenol BD Pen BD Pen No BD Pen Needle Katrina Needle Katrina Needle U/F 32G X 4 U/F 32G X 4 Katrina U/F MM MM 32G X 4 MM Cozaar 50 Cozaar 50 No 1{table QD Cozaar 50 MG MG t} MG Victoza 18 Victoza 18 No QD Victoza 18 MG/3ML MG/3ML MG/3ML Simvastatin Simvastatin No 1{table QD Simvastati 80 MG 80 MG t_in_th n 80 MG e_eveni ng} OneTouch OneTouch No QD OneTouch Verio - Verio - Verio - Furosemide Furosemide No 1{table BID Furosemide 40 MG 40 MG t} 40 MG Anoro Anoro No Anoro Ellipta Ellipta Ellipta 62.5-25 62.5-25 62.5-25 MCG/INH MCG/INH MCG/INH Clopidogrel Clopidogrel No 1{table QD Clopidogre Bisulfate Bisulfate t} l 75 MG 75 MG Bisulfate 75 MG Levemir Levemir No Levemir FlexTouch FlexTouch FlexTouch 100 UNIT/ML 100 UNIT/ML 100 UNIT/ML Multi Multi No Multi Vitamin Vitamin Vitamin Donepezil Donepezil No Donepezil HCl 10 MG HCl 10 MG HCl 10 MG Aspir-81 81 Aspir-81 81 No 1{table QD Aspir-81 MG MG t} 81 MG Levetiracet Levetiracet No Levetirace am 500 MG am [address] 500 MG Keppra 500 Keppra 500 No 1{table BID Keppra 500 MG MG t} MG Furosemide Furosemide No Furosemide 40 MG 40 MG 40 MG Hemocyte Hemocyte No 1{capsu QD Hemocyte Plus 106-1 Plus 106-1 le} Plus 106-1 MG MG MG Ferrous Ferrous No Ferrous Sulfate 325 Sulfate 325 Sulfate (65 Fe) MG (65 Fe) MG 325 (65 Fe) MG Levemir Levemir No QD Levemir FlexTouch FlexTouch FlexTouch 100 UNIT/ML 100 UNIT/ML 100 UNIT/ML Losartan Losartan No Losartan Potassium Potassium Potassium 50 MG 50 MG 50 MG Ferrous Ferrous No 1{table BID Ferrous Sulfate 325 Sulfate 325 t} Sulfate (65 Fe) MG (65 Fe) MG 325 (65 Fe) MG Fish Oil Fish Oil No 1{capsu QD Fish Oil 1000 MG 1000 MG le} 1000 MG Aricept 10 Aricept 10 No 1{table QD Aricept 10 MG MG t_at_be MG dtime} Adult Multi Adult Multi No Adult [place] plus plus Multi plus Family Cozad-3 1 Cozad-3 1 Cozad-3 1 Practic TAB DAILY TAB DAILY TAB [...] with meals. Aspir-81 1 Aspir-81 1 No Aspir-81 1 Village TAB DAILY TAB DAILY TAB DAILY Family Practic e clopidogrel clopidogrel No 1 Q1D clopidogre [facility] 75 mg 75 mg l 75 mg Family tablet Take tablet Take tablet Practic 1 tablet 1 tablet Take 1 e every day every day tablet by oral by oral every day route. route. by oral route. donepezil donepezil No 1 Q1D donepezil [facility] 10 mg 10 mg 10 mg [...] route. furosemide furosemide No 1 Q1D furosemide [facility] 80 mg 80 mg 80 mg [...] meals. levetiracet levetiracet No 1 BID levetirace [place] am 500 [address] am [address] [...] meals. multivitami multivitami No 1capsul Q1D multivitam [place] n capsule n capsule e(s) in capsule Family Take 1 Take 1 Take 1 Practic capsule capsule capsule e every day every day every day by oral by oral by oral route with route with route with meals. meals. meals. simvastatin simvastatin No 1 Q1D simvastati [facility] 40 mg 40 mg n 40 mg Family tablet Take tablet Take tablet Pract[facility] 1 tablet 1 tablet Take 1 e every day every day tablet by oral by oral every day route. route. by oral route. Immunizations Ordered Immunization Filled Immunization Date Status Commen ts Source Name Name FluAD FluAD 2020-05-20 [facility] FluAD FluAD 2020-05-20 [facility] 09[facility]00 [facility] FluAD FluAD 2020-05-20 [facility] 09:49:00 [facility] FluAD FluAD 2020-05-20 [facility] - 09:49:00 [facility] FluAD FluAD 2020-05-20 [facility] 09:49:00 [facility] FluAD FluAD 2020-05-20 [facility] 09:49:00 [facility] FluAD FluAD 2020-05-20 [facility] 09:49:00 [facility] FluAD FluAD 2019-05-20 [facility]pleted [facility] - 09:41:00 [facility] FluAD FluAD 2019-05-20 [facility]pleted [facility] - 09:41:00 [facility] FluAD FluAD 2019-05-20 [facility] 09:41:00 [facility] FluAD FluAD 2019-05-20 Completed [facility] 09:41:00 [facility] FluAD FluAD 2019-05-20 Completed [facility] 09:41:00 [facility] FluAD FluAD 2019-05-20 Completed [facility] 09:41:00 [facility] FluAD FluAD 2019-05-20 [facility]pleted [facility] 09:41:00 [facility] FluAD FluAD 2019-05-20 [facility] 00:[facility]:00 [facility] influenza, influenza, 2019-04-22 Completed [facility] injectable, injectable, 00:00:00 Practice quadrivalent quadrivalent FluAD FluAD 2018-04-23 [facility]pleted [facility] - 15:37:00 [facility] FluAD FluAD 2018-04-23 [facility]pleted [facility] - 15:37:00 [facility] FluAD FluAD 2018-04-23 Completed [facility] - 15:37:00 [facility] FluAD FluAD 2018-04-23 [facility] - 15:37:00 [facility] FluAD FluAD 2018-04-23 [facility]pleted [facility] - 15:37:00 [facility] FluAD FluAD 2018-04-23 [facility]pleted [facility] - 15:37:00 [facility] FluAD FluAD 2018-04-23 [facility]pleted [facility] - 15:37:00 [facility] FluAD FluAD 2018-04-23 Completed [facility] - 00:00:00 [facility] Vital Signs Vital Name Observation Time Observation Value Comments Source height 2021-03-23 09:30:00 72 [in_i] [facility] weight 2021-03-23 09:30:00 160.0 [lb_av] [facility] temperature 2021-03-23 09:30:00 97.5 [degF] [facility] bmi 2021-03-23 09:30:00 21.7 kg/m2 [facility] oximetry 2021-03-23 09:30:00 97 % [facility] respiratory rate 2021-03-23 09:30:00 17 /min [facility] blood pressure 2021-03-23 09:30:00 124 mm[Hg] Common [facility] - systolic [facility] blood pressure 2021-03-23 09:30:00 58 mm[Hg] Common [facility] - diastolic [facility] height 2021-02-23 08:50:00 72 [in_i] Common [facility] weight 2021-02-23 08:50:00 169.3 [lb_av] [facility] temperature 2021-02-23 08:50:00 97.5 [degF] Common [facility] bmi 2021-02-23 08:50:00 22.96 kg/m2 [facility] oximetry 2021-02-23 08:50:00 97 % [facility] respiratory rate 2021-02-23 08:50:00 16 /min [facility] blood pressure 2021-02-23 08:50:00 136 mm[Hg] Common [facility] - systolic [facility] blood pressure 2021-02-23 08:50:00 61 mm[Hg] Common [facility] - diastolic [facility] respiratory rate 2020-11-24 08:30:00 16 /min [facility] blood pressure 2020-11-24 08:30:00 138 mm[Hg] [facility] - systolic [facility] blood pressure 2020-11-24 08:30:00 70 mm[Hg] [facility] - diastolic [facility] height 2020-11-24 08:30:00 72 [in_i] [facility] weight 2020-11-24 08:30:00 164.8 [lb_av] [facility] temperature 2020-11-24 08:30:00 97.0 [degF] [facility] bmi 2020-11-24 08:30:00 22.35 kg/m2 [facility] oximetry 2020-11-24 08:30:00 97 % [facility] Height 2020-02-11 00:00:00 71 [in_i] [facility] BP Diastolic 2019-09-24 00:00:00 80 mm[Hg] [facility] Height 2019-09-24 00:00:00 71 [in_i] [facility] BMI (Body Mass 2019-09-24 00:00:00 24.6 kg/m2 [facility] Index) Practice BP Systolic 2019-09-24 00:00:00 135 mm[Hg] [facility] Body Weight 2019-09-24 00:00:00 176.5 [lb_av] [facility] Systolic blood 2021-08-09 19:18:00 111 mm[Hg] [facility] pressure Diastolic blood 2021-08-09 19:18:00 56 mm[Hg] [facility] pressure Heart rate 2021-08-09 19:18:00 71 /min [facility] Body weight 2021-08-09 19:18:00 74.844 kg [facility] BMI 2021-08-09 19:18:00 22.38 kg/m2 [facility] Procedures Procedure Date / Time Performed Performing Clinician [facility] e ECG 12-LEAD 2021-08-09 19:24:37 Roc Salazar Plan of Care Planned Activity Planned Date Details Comments Source Future Scheduled 2022-05-25 HEPATITIS B VACCINES Met [facility] Test 02:35:58 (1 of 3 - 3-dose series) [code = HEPATITIS B VACCINES (1 of 3 - 3-dose series)] Future Scheduled 2022-05-25 COVID-19 VACCINE (#1) [facility] Test 02:35:58 [code = COVID-19 VACCINE (#1)] Future Scheduled 2022-05-25 65+ PNEUMOCOCCAL Method[facility] Test 02:35:58 VACCINE (1 - PCV) [code = 65+ PNEUMOCOCCAL VACCINE (1 - PCV)] Future Scheduled 2022-05-25 SHINGLES VACCINES (1 Met [facility] Test 02:35:58 of 2) [code = SHINGLES VACCINES (1 of 2)] Future Scheduled 2022-05-25 INFLUENZA VACCINE [facility] Test 02:35:58 [code = INFLUENZA VACCINE] Encounters Start End Encounter Admission Attending Care Care Encounter Source Date/Time Date/Time Type Type Clinicians Facility Department ID 2021-08-17 [place] [place], [facility] Common 14:13:05 Finn [id number] [facility] 2021-08-17 [place] [place], [facility] [id number] Common 13:44:51 Finn [address] [facility] 2021-08-17 [place], [facility] [id number] Common 13:34:10 Finn 89756 [facility] 2021-08-17 [place]patient [place], [facility] [id number] Common 13:33:51 Finn 80032 [facility] 2021-08-17 [place]patient [place], [facility] [id number] Common 12:59:05 Finn 99636 [facility] 2021-08-17 [place], [facility] [id number] Common 12:28:35 Finn 23198 [facility] 2021-08-17 [place], [facility] [id number] Common 12:27:34 Finn 40485 [facility] 2021-08-17 [place], [facility] [id number] Common 12:26:46 Finn 40113 [facility] 2021-08-17 Outpatient [place], [facility] [id number] Common 12:25:12 [facility] [address] [facility] 2021-08-17 Outpatient [place], [facility] ST[facility] [id number] Common 11:20:00 [facility] [address]82 [facility] 2021-08-17 Outpatient [place], [facility] ST[facility] [id number] Common 11:04:20 [facility] [address] [facility] 2022-02-28 2022-02-28 Telephone Elena, 1.2.840.1 [id number] Methodi 00:00:00 00:00:[address] 3.430.2.7 Hospit a .3.118074 l .8 2022-02-27 2022-02-27 Telephone Melisa 1.2.840.1 [id number] [facility] 00:00:00 00:00:00 Roc Ortiz [address] 3.430.2.7 Hospit a .3.157583 l .8 2021-11-10 2021-11-10 (TEL) [facility] [id number] Co mmon 00:00:00 00:00:00 [facility] 2021-08-09 2021-08-09 Office Melisa, 1.2.840.1 [id number] Methodi 13:45:00 14:00:00 Visit Roc Ortiz [address]1491.1.[address] 3.430.2.7 Hospit a .3.045225 l .8 2021-08-09 2021-08-09 Outpatient MELISA, [facility] [id number] [address] [place] 00:00:00 00:00:00 [facility] [address] 2021-08-09 2021-08-09 Travel 1.2.840.1 1.2.699.981 [id number] [facility] 00:00:00 00:00:[address] 3.430.2.7 0.2.7.3.698 Ho spita .3.185186 084.8 l .8 2021-06-28 2021-06-28 Travel 1.2.840.1 1.2.795.535 [id number] [facility] 00:00:00 00:00:[address] 3.430.2.7 0.2.7.3.698 Ho spita .3.567024 084.8 l .8 2021-06-06 2021-06-06 (TEL) [facility] [id number] Co mmon 00:00:00 00:00:00 [facility] 2021-05-25 2021-05-25 (TEL) STLMLC ST[facility] [id number] Co mmon 00:00:00 00:00:00 [facility] 2021-03-23 2021-03-23 OFFICE STLMLC STLMLC [id number] Co mmon 00:00:00 00:00:00 [facility] ESTAB PT - CHI LEVEL 4 [facility] 2021-02-23 2021-02-23 OFFICE STLMLC STLMLC [id number] Co mmon 00:00:00 00:00:00 [facility] PT - CHI LEVEL 4 [facility] 2020-12-23 2020-12-23 (TEL) STLMLC ST[facility] [id number] Co mmon 00:00:00 00:00:00 [facility] - [facility] 2020-11-24 2020-11-24 OFFICE STLMLC STLMLC [id number] Co mmon 00:00:00 00:00:00 [facility] ESTAB PT - CHI LEVEL 4 [facility] 2020-11-17 2020-11-17 Outpatient Mg-Mbayo VFP VFP [id number] 1 [facility] 12:10:00 12:10:00 _A_AH Family Practic e 2020-11-17 2020-11-17 Outpatient Mg-Mbayo VFP VFP [id number] [facility] 12:10:00 12:10:00 _A_AH 80133 Family Practic e 2020-09-16 2020-09-16 Outpatient Mg-Mbayo VFP VFP 796 [facility] 06:31:00 06:31:00 _A_AH 21793 Family Practic e 2020-09-16 2020-09-16 Outpatient Mg-Mbayo VFP VFP 796 [facility] 06:31:00 06:31:00 _A_AH 23004 Family Practic e 2020-09-16 2020-09-16 Outpatient Mg-Mbayo VFP VFP 796 [facility] 06:31:00 06:31:00 _A_AH 47852 Family Practic e 2020-08-26 2020-08-26 Outpatient STLMLC ST[facility] [id number] Common 00:00:00 00:00:00 [facility] 2020-08-26 2020-08-26 Outpatient STLMLC STLMLC [id number] Common 00:00:00 00:00:00 [facility] 2020-06-22 2020-06-22 Outpatient STLMLC STLMLC [id number] Common 00:00:00 00:00:00 [facility] 2020-05-20 2020-05-20 Outpatient STLMLC STLMLC [id number] Common 00:00:00 00:00:00 [facility] 2020-02-20 2020-02-20 Outpatient Mg-Mbeddao VFP VFP 796 [facility] 02:01:00 02:01:00 _A_AH 28653 Family Practic e 2020-02-19 2020-02-19 [facility] [id number] Common 08:15:00 08:15:00 [facility] 2020-02-17 2020-02-17 Outpatient Mg-Mbayo VFP VFP [id number] 1 [facility] 04:24:00 04:24:00 _A_AH 27905 Family Practic e 2020-02-11 2020-02-11 [place] - [id number] V illage 00:00:00 00:00:00 [facility] Fam whitney gonsalez, DRY MAN: Medical - Practi c [email or web address], [address], [place] [address] , Ph. 2019-12-23 2019-12-23 Outpatient Mg-Mbayo VFP [address] 02:52:00 02:52:00 _A_AH 16608 Family Practic e 2019-12-16 2019-12-16 Outpatient Mg-Mbayo VFP VFP [facility] 12:32:00 12:32:00 _A_AH 93409 Family Practic e 2019-11-20 2019-11-20 [facility] [id number] Common 14:10:00 14:10:[address] [facility] 2019-11-20 2019-11-20 [facility] [id number] Common 10:15:00 10:15:[address] [facility] 2019-09-30 2019-09-30 [facility] [id number] Common 11:22:00 11:22:[address] [facility] 2019-09-24 2019-09-24 Outpatient Mg-Mbayo VFP P [address] [place] [address] 11:38:00 11:38:00 _A_AH 58538 Family Practic e 2019-09-24 2019-09-24 [place] [facility] [place] - [id number] V illage 00:00:00 00:00:00 Mg-Mbay [facility] Richard gonsalez DRY MAN: Medical - Practi c [email or web address] [facility], [address], [place] [address] , Ph. 2019-09-10 2019-09-10 Outpatient Mg-Mbayo VFP P [address] [place] [address] 07:21:00 07:21:00 _A_AH 15491 Family Practic e 2019-08-27 2019-08-27 [facility] [id number] Common 14:33:00 14:33:[address] [facility] 2019-08-21 2019-08-21 [facility] [id number] Common 10:30:00 10:30:[address] [facility] 2019-08-04 2019-08-04 [facility] [id number] Common 10:00:00 10:00:[address] [facility] 2019-07-21 2019-07-21 [facility] [id number] Common 10:03:00 10:03:[address] [facility] 2019-05-20 2019-05-20 [facility] [id number] Common 09:30:00 09:30:[address] [facility] 2019-02-17 2019-02-17 [facility] [id number] Common 09:45:00 09:45:[address] [facility] 2018-11-25 2018-11-25 [facility] [id number] Common 08:30:00 08:30:[address] [facility] 2018-11-18 2018-11-18 [facility] [id number] Common 09:30:00 09:30:[address] [facility] 2018-11-14 2018-11-14 [facility] [id number] Common 13:24:00 13:24:[address] [facility] 2018-08-20 2018-08-20 [facility] [id number] Common 09:30:00 09:30:[address] [facility] 2018-07-31 2018-07-31 [facility] [id number] Common 09:18:00 09:18:[address] [facility] 2018-07-01 2018-07-01 [facility] [id number] Common 11:33:00 11:33:[address] [facility] 2018-05-09 2018-05-09 [facility] [id number] Common 11:00:00 11:00:00 t [facility] [address] Spir [address] Road [facility] 2018-04-23 2018-04-23 [facility] [id number] Common 10:15:00 10:15:[address] [facility] 2018-04-16 2018-04-16 [facility] [id number] Common 13:57:00 13:57:[address] [facility] 2018-02-12 2018-02-12 [facility] [id number] Common 09:21:00 09:21:[address] [facility] 2018-01-11 2018-01-11 [facility] [id number] Common 08:23:00 08:23:00 t [facility] Spir [address] Road [facility] 2018-01-08 2018-01-08 [facility] [id number] Common 13:53:00 13:53:[address] [facility] 2018-01-03 2018-01-03 [facility] [id number] Common 13:30:00 13:30:[address] [facility] Results Test Description Test Time Test Comments Results Result Comments Source ECG 12 lead 2021-08-09 23:36:47 Test Item Value Reference Range Interpretation Comme nts Ventricular rate (test code = 253) Atrial rate (test code = 255) HI interval (test code = 266) QRSD interval (test code = 260) QT interval (test code = 264) QTC interval (test code = 265) P axis 1 (test code = 267) QRS axis 1 (test code = 268) T wave axis (test code = 270) EKG impression (test code = 273) Normal sinus rhythm-Rightward axis -ST & T wave abnormality, consider inferolateral ischemia-Prolonged QT-Abnormal ECG- [facility]
[2022-06-27 02:28] LABS: Absolute Lymphocytes (CBC) 1.3 K/uL (0.7-4.9); Lymphocytes % 13.3 % (15.3-44.8); MCV 82.8 fL (80-100); MPV 8.6 fL (7.6-11.3); RBC Red Blood Cell Count 4.23 M/uL (4.33-5.43)
[2022-06-27 02:39] LABS: Albumin 3.1 g/dL (3.4-5.0); Bilirubin Total 0.4 mg/dL (0.2-1.0); Potassium 3.2 mmol/L (3.5-5.1); Protein, Total 6.6 g/dL (6.4-8.2)
[2022-06-27 02:52] LABS: Troponin High Sensitivity 216.4 pg/mL (<58.9)
[2022-06-27] MEDS ORDERED: D10W 250 ML IV ONE (05:29)
--- NOTE | 2022-06-27 05:30 | ER ---
Nurse's Notes [facility] Name: Kyle De Guzman Age: 87 yrs Sex: Male : 1935 Arrival Date: 06/27/2022 Time: 01:22 Bed 7 Private MD: Diagnosis: Drug-induced hypoglycemia without coma Presentation: 06/27 01:33 Chief complaint: EMS states: 87 year old experienced an episode of low sugar. when we ha1 arrived his glucose was at 50. nonverbal. after giving him 250 Ml bolus D10W NS his glucose when up to 113. Ebola Screen: No symptoms or risks identified at this time. Initial Sepsis Screen: Does the patient meet any 2 criteria? No. Patient's initial sepsis screen is negative. Does the patient have a suspected source of infection? No. Patient's initial sepsis screen is negative. Risk Assessment: Do you want to hurt yourself or someone else? Patient reports no desire to harm self or others. Onset of symptoms was June 27, 2022. 01:33 Method Of Arrival: EMS: [facility] ha1 01:33 Acuity: JAVI 3 ha1 06:41 Coronavirus screen: At this time, the client does not indicate any symptoms associated as6 with coronavirus-19. Triage Assessment: 01:33 General: Appears comfortable, Behavior is calm, cooperative. Pain: Denies pain. EENT: ha1 No deficits noted. No signs and/or symptoms were reported regarding the EENT system. Neuro: Level of Consciousness is awake, alert, obeys commands, Oriented to person, place, time, situation. Cardiovascular: Capillary refill < 3 seconds Patient's skin is warm and dry. Respiratory: Airway is patent Respiratory effort is even, unlabored, Respiratory pattern is regular, symmetrical. GI: No signs and/or symptoms were reported involving the gastrointestinal system. Abdomen is flat, non-distended. : No signs and/or symptoms were reported regarding the genitourinary system. Derm: Skin is dry. Musculoskeletal: Circulation, motion, and sensation intact. Range of motion: intact in all extremities. Historical: - Allergies: 01:52 No Known Allergies; ha1 - Immunization history:: Adult Immunizations unknown. - Social history:: Smoking status: unknown. Screenin:48 Abuse screen: Denies threats or abuse. Denies injuries from another. Nutritional ha1 screening: No deficits noted. Tuberculosis screening: No symptoms or risk factors identified. Fall Risk IV access (20 points). Gait- Weak (10 pts.). Total Deleon Fall Scale indicates Low Risk Score (25-44 pts). Fall prevention measures have been instituted. Side Rails Up X 2 Placed close to Nursing Station Frequent Obs/Assesments occuring. Assessment: 01:49 General: see triage. ha1 02:40 Reassessment: Patient and/or family updated on plan of care and expected duration. Pain ha1 level reassessed. Patient is alert, oriented x 3, equal unlabored respirations, skin warm/dry/pink. Patient denies pain at this time. 03:34 Reassessment: Patient and/or family updated on plan of care and expected duration. Pain ha1 level reassessed. Patient is alert, oriented x 3, equal unlabored respirations, skin warm/dry/pink. Patient denies pain at this time. 04:30 Reassessment: Patient and/or family updated on plan of care and expected duration. Pain ha1 level reassessed. Patient is alert, oriented x 3, equal unlabored respirations, skin warm/dry/pink. Patient denies pain at this time. 05:31 Reassessment: Patient and/or family updated on plan of care and expected duration. Pain ha1 level reassessed. Patient is alert, oriented x 3, equal unlabored respirations, skin warm/dry/pink. Nurse practitioner at bedside Patient denies pain at this time. 06:20 Reassessment: Patient and/or family updated on plan of care and expected duration. Pain ha1 level reassessed. Patient is alert, oriented x 3, equal unlabored respirations, skin warm/dry/pink. eating a sandwich. 07:00 Reassessment: received report from PATRICIA Morales. ap3 07:14 General: Appears comfortable, Behavior is calm. Pain: Denies pain. Neuro: Oriented to ap3 person, place, time, situation. Cardiovascular: Patient's skin is warm and dry. Respiratory: Airway is patent Respiratory effort is even, unlabored, Respiratory pattern is regular, symmetrical. 07:36 Reassessment: attempted report to ICU. was informed they were rounding with providers ap3 and would return my call. 08:35 General: attempted to call report. was informed the provider would be coming down to ap3 re-evaluate the patients status.. 09:04 Reassessment: Patient and/or family updated on plan of care and expected duration. Pain ap3 level reassessed. Patient is alert, oriented x 3, equal unlabored respirations, skin warm/dry/pink. 10:46 Reassessment: report given to PATRICIA Heredia. ap3 Vital Signs: 01:33 BP 158 / 78; Pulse 80; Resp 20 S; Temp 98.3; Pulse Ox 99% on R/A; Weight 69.85 kg; ha1 Height 6 ft. (182.88 cm); 01:49 BP 158 / 78; Pulse 80; Resp 20 S; Pulse Ox 99% on R/A; ha1 02:50 BP 140 / 72; Pulse 85; Resp 19 S; Pulse Ox 98% on R/A; ha1 03:50 BP 124 / 64; Pulse 89; Resp 19 S; Pulse Ox 96% on R/A; ha1 04:50 BP 135 / 64; Pulse 91; Resp 18 S; Pulse Ox 96% on R/A; ha1 05:31 BP 135 / 64; Pulse 89; Resp 25 S; Pulse Ox 97% on R/A; as6 06:40 BP 148 / 74; Pulse 88; Resp 21 S; Pulse Ox 97% on R/A; as6 07:18 BP 143 / 73; Pulse 86; Resp 19; Pulse Ox 96% on R/A; ap3 08:10 BP 137 / 62; Pulse 94; Resp 22; Pulse Ox 99% ; bp 09:30 BP 141 / 75; Pulse 78; Pulse Ox 98% on R/A; ap3 10:46 BP 147 / 73; Pulse 75; Pulse Ox 98% on R/A; ap3 01:33 Body Mass Index 20.89 (69.85 kg, 182.88 cm) ha1 ED Course: 01:22 Patient arrived in ED. as6 01:22 Redd Garcia MD is Attending Physician. rt 01:33 Arm band placed on right wrist. ha1 01:41 Andrew Armas RN is Primary Nurse. as6 01:42 Triage completed. ha1 01:50 Patient has correct armband on for positive identification. Placed in gown. Bed in low ha1 position. Call light in reach. Side rails up X 1. 02:07 Chest Single View XRAY In Process Unspecified. EDMS 02:52 Notified ED physician of a critical lab result(s). troponin of 216.4 Dr Jose mejia notified. 05:29 Hernan Schwartz MD is Hospitalizing Provider. rt 05:32 No provider procedures requiring assistance completed. Maintain EMS IV. Dressing as6 intact. Good blood return noted. Site clean \T\ dry. Gauge \T\ site: 20g right forearm . Patient admitted, IV remains in place. 08:43 UA MICROSCOPIC Sent. ap3 11:32 Abad Simmons MD is Attending Physician. kdr 11:35 Hernan Schwartz MD is Attending Physician. ap3 Administered Medications: 05:31 Drug: D10 in Water [4ml/kg] 1000 ml Route: IVP; Rate: 50 ml/min; Site: right forearm; as6 06:54 Follow up: Response: No adverse reaction ha1 05:45 Drug: Aspirin Chewable Tablet 324 mg Route: PO; ha1 06:20 Follow up: Response: No adverse reaction ha1 Medication: 05:32 VIS not applicable for this client. as6 Point of Care Testing: Blood Glucose: 05:32 Blood Glucose: 27 mg/dL; as6 06:39 Blood Glucose: 151 mg/dL; as6 Ranges: Outcome: 05:29 Decision to Hospitalize by Provider. rt 10:47 Admitted to Med/surg ap3 10:47 Condition: good 11:35 Patient left the ED. ap3 Signatures: Dispatcher [employer] EDVA Abad Simmons MD MD kdr Marilu Sosa RN RN bb Shane Matthew RN RN bp Prokisch, Amanda, RN RN ap3 Andrew Armas RN RN as6 Jesika Thomas RN RN ha1 Redd Garcia MD MD rt
--- NOTE | 2022-06-27 05:30 | EDPHYS ---
Physician Documentation [facility] Name: Kyle De Guzman Age: 87 yrs Sex: Male : 1935 Arrival Date: 06/27/2022 Time: 01:22 Bed 7 Private MD: ED Physician HPI: 06/27 01:31 This 87 yrs old Male presents to ER via Unassigned with complaints of Hypoglycemia. rt 01:31 Onset: The symptoms/episode began/occurred at an unknown time. Severity of symptoms: At rt their worst the symptoms were moderate in the emergency department the symptoms have resolved. Patient presents to the ED with hypoglycemia, patient reportedly takes insulin. The patient's has had a few visits over the past 48 hours for hypoglycemia that resolved with dextrose. He was reportedly unresponsive, with a glucose of 50. He received dextrose with improvement of 130 and resolution of his symptoms. The patient denies any symptoms at this time aside from a cough. Symptoms are moderate in severity, no other aggravating or alleviating factors.. Historical: - Allergies: 01:52 No Known Allergies; ha1 - Immunization history:: Adult Immunizations unknown. - Social history:: Smoking status: unknown. ROS: 01:48 Constitutional: Negative for fever, chills, and weight loss, Eyes: Negative for injury, rt pain, redness, and discharge, ENT: Negative for injury, pain, and discharge, Neck: Negative for injury, pain, and swelling, Cardiovascular: Negative for chest pain, palpitations, and edema, Abdomen/GI: Negative for abdominal pain, nausea, vomiting, diarrhea, and constipation, MS/Extremity: Negative for injury and deformity, Skin: Negative for injury, rash, and discoloration, Psych: Negative for depression, anxiety, suicide ideation, homicidal ideation, and hallucinations. 01:48 Respiratory: Positive for cough, Negative for shortness of breath. 01:48 Neuro: Positive for altered mental status, Negative for dizziness. 01:48 Endocrine: Positive for Exam: 01:48 Constitutional: This is a well developed, well nourished patient who is awake, alert, rt and in no acute distress. Head/Face: Normocephalic, atraumatic. Eyes: Pupils equal round and reactive to light, extra-ocular motions intact. Lids and lashes normal. Conjunctiva and sclera are non-icteric and not injected. Cornea within normal limits. Periorbital areas with no swelling, redness, or edema. ENT: Nares patent. No nasal discharge, no septal abnormalities noted. Tympanic membranes are normal and external auditory canals are clear. Oropharynx with no redness, swelling, or masses, exudates, or evidence of obstruction, uvula midline. Mucous membranes moist. Neck: Trachea midline, no thyromegaly or masses palpated, and no cervical lymphadenopathy. Supple, full range of motion without nuchal rigidity, or vertebral point tenderness. No Meningismus. Chest/axilla: Normal chest wall appearance and motion. Nontender with no deformity. No lesions are appreciated. Cardiovascular: Regular rate and rhythm with a normal S1 and S2. No gallops, murmurs, or rubs. Normal PMI, no JVD. No pulse deficits. Respiratory: Lungs have equal breath sounds bilaterally, clear to auscultation and percussion. No rales, rhonchi or wheezes noted. No increased work of breathing, no retractions or nasal flaring. Abdomen/GI: Soft, non-tender, with normal bowel sounds. No distension or tympany. No guarding or rebound. No evidence of tenderness throughout. Back: No spinal tenderness. No costovertebral tenderness. Full range of motion. Skin: Warm, dry with normal turgor. Normal color with no rashes, no lesions, and no evidence of cellulitis. MS/ Extremity: Pulses equal, no cyanosis. Neurovascular intact. Full, normal range of motion. Neuro: Awake and alert, GCS 15, oriented to person, place, time, and situation. Cranial nerves II-XII grossly intact. Motor strength 5/5 in all extremities. Sensory grossly intact. Cerebellar exam normal. Normal gait. Psych: Awake, alert, with orientation to person, place and time. Behavior, mood, and affect are within normal limits. 01:48 ECG was reviewed by the Attending Physician. Vital Signs: 01:33 BP 158 / 78; Pulse 80; Resp 20 S; Temp 98.3; Pulse Ox 99% on R/A; Weight 69.85 kg; ha1 Height 6 ft. (182.88 cm); 01:49 BP 158 / 78; Pulse 80; Resp 20 S; Pulse Ox 99% on R/A; ha1 02:50 BP 140 / 72; Pulse 85; Resp 19 S; Pulse Ox 98% on R/A; ha1 03:50 BP 124 / 64; Pulse 89; Resp 19 S; Pulse Ox 96% on R/A; ha1 04:50 BP 135 / 64; Pulse 91; Resp 18 S; Pulse Ox 96% on R/A; ha1 05:31 BP 135 / 64; Pulse 89; Resp 25 S; Pulse Ox 97% on R/A; as6 06:40 BP 148 / 74; Pulse 88; Resp 21 S; Pulse Ox 97% on R/A; as6 07:18 BP 143 / 73; Pulse 86; Resp 19; Pulse Ox 96% on R/A; ap3 08:10 BP 137 / 62; Pulse 94; Resp 22; Pulse Ox 99% ; bp 09:30 BP 141 / 75; Pulse 78; Pulse Ox 98% on R/A; ap3 10:46 BP 147 / 73; Pulse 75; Pulse Ox 98% on R/A; ap3 01:33 Body Mass Index 20.89 (69.85 kg, 182.88 cm) ha1 MDM: 01:55 Patient medically screened. rt 05:30 Differential Diagnosis Sepsis, acute coronary syndrome, drug-induced hypoglycemia.. rt Data reviewed: vital signs, nurses notes. 06/27 01:40 Order name: Glucose, Ancillary Testing; Complete Time: 01:48 EDMS 06/27 01:48 Order name: CBC with Diff; Complete Time: 04:06 rt 06/27 01:48 Order name: CMP; Complete Time: 04:06 rt 06/27 01:48 Order name: Troponin High Sensitivity; Complete Time: 04:06 rt 06/27 01:48 Order name: BNP; Complete Time: 04:06 rt 06/27 01:48 Order name: UA MICROSCOPIC rt 06/27 01:48 Order name: Chest Single View XRAY rt 06/27 04:23 Order name: Troponin High Sensitivity; Complete Time: 05:26 rt 06/27 05:31 Order name: SARS RAPID as6 06/27 05:36 Order name: Glucose, Ancillary Testing EDMS 06/27 06:51 Order name: Glucose, Ancillary Testing EDMS 06/27 07:47 Order name: Glucose, Ancillary Testing EDMS 06/27 08:50 Order name: Glucose, Ancillary Testing EDMS 06/27 10:22 Order name: Glucose, Ancillary Testing EDMS 06/27 01:48 Order name: Urine Dipstick-Ancillary (obtain specimen); Complete Time: 08:43 rt EC:48 Rate is 84 beats/min. Rhythm is regular, Normal Sinus Rhythm with Occasional PVCs. QRS rt [place] is Normal. [place] interval is normal. QT interval is prolonged at 491 msec. No Q waves. Clinical impression: NSR w/ Non-specific ST/T Changes. Administered Medications: 05:31 Drug: D10 in Water [4ml/kg] 1000 ml Route: IVP; Rate: 50 ml/min; Site: right forearm; as6 06:54 Follow up: Response: No adverse reaction ha1 05:45 Drug: Aspirin Chewable Tablet 324 mg Route: PO; ha1 06:20 Follow up: Response: No adverse reaction ha1 Point of Care Testing: Blood Glucose: 05:32 Blood Glucose: 27 mg/dL; as6 06:39 Blood Glucose: 151 mg/dL; as6 Ranges: Critical Glucose Levels:Adult <50 mg/dl or >400 mg/dl <40 mg/dl or >180 mg/dl Disposition Summary: 06/27/22 05:29 Hospitalization Ordered Hospitalization Status: Observation rt Provider: Hernan Schwartz rt Condition: Fair rt Problem: new rt Symptoms: are unchanged rt Bed/Room Type: Standard rt Location: Telemetry/MedSurg (observation)(06/27/22 10:22) dw Room Assignment: [facility](06/27/22 10:22) dw Diagnosis - Drug-induced hypoglycemia without coma rt Forms: - Medication Reconciliation Form rt - SBAR form rt Critical care time excluding procedures: 05:30 Critical care time: Bedside Care: 30 minutes, Consultation: 5 minutes. Total time: 35 rt minutes Signatures: Dispatcher [employer] EDMA Tamra Shin RN RN Johnna Leavitt RN RN Alexandra Bhakta RN RN ss Attema, Lee, FNP-Enma DSOUZA-Andrwe James RN RN as6 Jesika Thomas RN RN ha1 Redd Garcia MD MD rt Corrections: (The following items were deleted from the chart) 06:26 05:29 Telemetry/MedSurg (observation) rt 06:26 05:29 rt 10:14 06:26 Intensive Care Unit [facility] 10: 06: 6- mw ss : 10: [facility] ER HOLD ss dw 10: ERHOLD- ss dw
--- NOTE | 2022-06-27 05:43 | P.HP ---
Certification for Inpatient Patient admitted to: Inpatient With expected LOS: >2 Midnights Patient will require the following post-hospital care: None Practitioner: I am a practitioner with admitting privileges, knowledge of patient current condition, hospital course, and medical plan of care. Services: Services provided to patient in accordance with Admission requirements found in Title 42 Section 412.3 of the Code of Federal Regulations <Ok Hendricks - Last Filed: 06/27/22 05:40> Patient History Date of Service: 06/27/22 Reason for admission: Hypoglycemia, NSTEMI History of Present Illness: 87-year-old male with history of diabetes mellitus type 2insulin-dependent, chronic diastolic congestive heart failure, CAD status post CABG, COPD, hypertension presents the emergency department for hypoglycemia. EMS was called for unresponsive patient found her sugar to be in the 40s he was given D10 and brought to the emergency department his blood sugar did increase to 98 upon arrival to the emergency department less than an hour later he was down to 78 and another 3 hours later it was 27. Patient takes Tresiba last took his dose of [id number] units last night he reports a normal diet. EMS was reportedly called out to his house multiple times in the last 2 days for hypoglycemia and he refused transportation until now. Additional labs were significant for elevated high-sensitivity troponin 216.4 down to 193.1, elevated BNP 5574 patient also has CKD 3. Patient was placed on IV fluids D10 at 50 cc/h in ED, ED provider wishes to admit for further evaluation and management of hyperglycemia, CHF, NSTEMI. - Past Medical/Surgical History Diabetic: Yes -: DM -: HTN -: peptic ulcers -: CAD s/p CABG -: COPD -: HTN -: Prior CVA -: triple bypass -: stents Psychosocial/ Personal History: Patient lives home with his - Family History Father -: Cancer - Social History Smoking Status: Never smoker Alcohol use: No CD- Drugs: No Caffeine use: No Place of Residence: Home <Ok Hendricks - Last Filed: 06/27/22 05:40> Date of Service: 06/27/22 <Hernan Schwartz - Last Filed: 06/27/22 13:10> Allergies No Known Allergies Allergy (Verified 06/27/22 11:46) Home Medications: RX: Calcium Carbonate [Calcium] 1 tab PO DAILY 11/19/18 RX: Ferrous Sulfate [Ferrous Sulfate*] 1 tab PO BID 11/19/18 RX: Magnesium Oxide [Magnesium] 1 tab PO DAILY 11/19/18 RX: Amlodipine [Norvasc*] 2.5 mg PO DAILY #14 tab 02/20/22 RX: Blood Sugar Diagnostic [Test Strips] 1 each MC Q6HR #120 strip 02/20/22 RX: Furosemide 40 mg PO DAILY 03/13/22 RX: Insulin Degludec [Tresiba Flextouch U-200] 26 units SQ DAILY 03/13/22 RX: Simvastatin 80 mg PO DAILY 03/13/22 RX: levETIRAcetam [Keppra] 500 mg PO BID 03/13/22 Apixaban [Eliquis] 2.5 mg PO BID #60 tablet 03/14/22 Review of Systems 10-point ROS is otherwise unremarkable General: Weakness, Malaise <Ok Hendricks - Last Filed: 06/27/22 05:40> Physical Examination - Physical Exam General: Alert, In no apparent distress, Oriented x3 HEENT: Atraumatic, PERRLA, Mucous membr. moist/pink, EOMI, Sclerae nonicteric Neck: Supple, 2+ carotid pulse no bruit, No LAD, Without JVD or thyroid abnormality Respiratory: Diminished Cardiovascular: No edema, Regular rate/rhythm, Normal S1 S2 Capillary refill: <2 Seconds Gastrointestinal: Normal bowel sounds, No tenderness Musculoskeletal: No tenderness Integumentary: No rashes Neurological: Normal speech, Normal strength at 5/5 x4 extr, Normal tone, Normal affect - Studies Laboratory Data (last 24 hrs) 06/27/22 02:10: Sodium 143, Potassium 3.2 L, BUN 33 H, Creatinine 1.66 H, Glucose 78, Total Bilirubin 0.4, AST 17, ALT 16, Alkaline Phosphatase 80 06/27/22 02:10: WBC 9.60, Hgb 11.4 L, Hct 35.0 L, Plt Count 248 <Ok Hendricks - Last Filed: 06/27/22 05:40> - Studies Laboratory Data (last 24 hrs) 06/27/22 02:10: Sodium 143, Potassium 3.2 L, BUN 33 H, Creatinine 1.66 H, Glucose 78, Total Bilirubin 0.4, AST 17, ALT 16, Alkaline Phosphatase 80 06/27/22 02:10: WBC 9.60, Hgb 11.4 L, Hct 35.0 L, Plt Count 248 <Hernan Schwartz - Last Filed: 06/27/22 13:10> Assessment and Plan - Plan Assessment: Diabetes mellitus type 2insulin-dependent with hyperglycemia Acute on chronic diastolic congestive heart failure NSTEMI related to above COPD CKD 3 CAD status post CABG Hypertension Plan: Diabetes mellitus type 2insulin-dependent with hyperglycemia: Continue D10 at 50 cc/h, patient currently eating. Monitor sugar hourly for the time being. Hold Tresiba 26 units patient takes nightly. Obtain A1c. Acute on chronic diastolic congestive heart failure: Patient will require gentle IV fluids given persistent hyperglycemia, will also provide with IV Lasix. Cardiology be consulted. NSTEMI related to above: Trend troponins, continue aspirin, other medications. Suspect demand ischemia patient denies chest pain or shortness of breath. COPD: No active exacerbation is apparent, as needed nebulizer treatments. CKD 3: Stable, monitor daily. CAD status post CABG: Continue home meds Hypertension:Continue home meds DVT PPX: Lovenox Code status: Full Discharge Plan: Home Plan to discharge in: 48 Hours - Advance Directives Does patient have a Living Will: Yes Does patient have a Durable POA for Healthcare: Yes - Code Status/Comfort Care Code Status Assessed: Yes (Full code) Critical Care: No Time Spent Managing Pts Care (In Minutes): 70 <Ok Hendricks - Last Filed: 06/27/22 05:40> Physician Review: Patient Assessed, Agree with Above Assessment and Plan <Hernan Schwartz - Last Filed: 06/27/22 13:10>
[2022-06-27] MEDS ORDERED: ASPIRIN 81 MG CHEWABLE TABLET ONE (05:45)
[2022-06-27 06:08] LABS: SARS-CoV-2 Antigen Rapid Res Negative (Negative)
--- NOTE | 2022-06-27 08:35 | EKG ---
Test Date: 2022-06-27 Test Time: 01:35:16 [employer] Supervisor: JERONIMO MEASUREMENT RESULTS: Intervals: Rate: 84 NJ: 164 QRSD: 98 QT: 416 QTc: 491 [place]: P: 82 NJ: 164 QRS: 85 T: 249 INTERPRETIVE STATEMENTS: Sinus rhythm with sinus arrhythmia with occasional premature ventricular complexes ST & T wave abnormality, consider inferior ischemia Prolonged QT Abnormal ECG Compared to ECG 03/12/2022 08:59:12 Ventricular premature complex(es) now present ST (T wave) deviation now present Possible ischemia now present T-wave abnormality no longer present Electronically Signed On 06-27-22 08:34:26 NURSING PROGRAM MANAGER by Romero Oliveros
[2022-06-27 08:57] LABS: Urine Mucus Slight /HPF (None Seen); Urine RBC <5 /HPF (None Seen)
[2022-06-27] MEDS: FUROSEMIDE 20 MG/ 2ML VIAL IV SCH ×2 (10:50→16:48)
[2022-06-27] MEDS ORDERED: ACETAMINOPHEN 500 MG TAB PO PRN (10:50)
[2022-06-27] MEDS ORDERED: ONDANSETRON 4 MG/2 ML VIAL IV PRN (10:50)
[2022-06-27] MEDS: ENOXAPARIN 40 MG/0.4 ML SQ SCH (11:52)
[2022-06-27] MEDS: DEXTROSE 10%-WATER 500 ML IV SCH ×2 (11:58→20:00)
[2022-06-27 14:02] VITALS: O2SAT 98
--- NOTE | 2022-06-27 17:58 | CON ---
Date of Consultation: 06/27/2022 Reason For Consultation: Elevated troponin. History Of Present Illness: An 87-year-old male, history of diabetes, on insulin, coronary artery di sease, status post CABG in the past, hypertension, COPD, presented to the emergency room because of b eing unresponsive and due to severe hypoglycemia. He was given D10 by ambulance and his sugar went u p from 40s to high 90s and then dropped to 27. Denies having any chest pain or any significant short ness of breath. Past Medical History: As outlined above in the HPI. Medications: Refer to reconciliation sheet for detailed list. Allergies: NO KNOWN DRUG ALLERGIES. Family History: No premature coronary artery disease or cancer. Social History: Does not smoke or drink. Does not use any drugs. Review of Systems: All systems reviewed and they were negative except what mentioned in the HPI. Physical Examination: Vital Signs: Showed temperature is 97.5, pulse 87, breathing at 16, blood pressure 147/73, saturatin g 93%. General: Pleasant elderly male, no apparent distress. Head and Neck: Pupils are equal, reactive to light. Intact eye movements. No JVD. No cervical lym phadenopathy. Neck is supple. Thyroid is not enlarged. Lungs: Decreased breathing sounds bilaterally. No accessory muscle use or muscle retraction. Heart: Irregular. No extra sounds. Abdomen: Soft, nontender. Bowel sounds positive. No organomegaly. No masses or hernia. No rigidi ty or rebound. Extremities: No clubbing or cyanosis. Intact pulses. Skin: No rash. Neurologic: Alert, awake. No acute focal deficits appreciated. Investigations: Troponin peaked at 216 and the third one was 180 trending down. BUN 33, creatinine 1.66, hemoglobin 11.4. Assessment And Recommendations: 1.Elevated troponin. This is likely demand ischemia. The patient is known to have coronary artery disease, but there is no active chest pain. Please obtain echocardiogram. If there are no wall laury on abnormalities, then plan for outpatient stress test. 2.Hypoglycemia. The patient likely needs adjustment of his diabetic medications. 3.Chronic diastolic heart failure, on gentle hydration. Monitor BUN, creatinine, electrolytes, and adjust as needed. Thank you for the consult. /MAYURI Voice ID: [id number] Report ID: [id number]
--- NOTE | 2022-06-27 19:06 | RAD REPORT ---
EXAM DESCRIPTION: Single view of the chest CLINICAL HISTORY: 87 years, Male, COUGH COMPARISON: None. FINDINGS: Single view of the chest was obtained portable. No prior films are available for compariso n. Sternotomy wires and pericardiac clips correspond to previous CABG. There is mild hyperinflation. The cardiomediastinal silhouette demonstrate to be unremarkable. The heart is not enlarged. The thora cic aorta is unremarkable. The pulmonary vasculature is normal distribution. Costophrenic angles are sharp. No areas of consolidation or masses are seen. External EKG leads within the [id number] li mits diagnosis. The rest of the soft tissue and bony structures demonstrate to be unremarkable. IMPRESSION: No acute cardiopulmonary disease identified. Status post CABG. Electronically signed by: Sascha Dumas MD 06/27/2022 2:58 AM [employer] Due to temporary technical issues with the PACS/Fluency reporting system, reports are being signed by the in house radiologists without review as a courtesy to insure prompt reporting. The interpreting radiologist is fully responsible for the content of the report.
[2022-06-28 04:59] LABS: Absolute Lymphocytes (CBC) 1.8 K/uL (0.7-4.9); Hematocrit 33.8 % (39.6-49.0); Lymphocytes % 16.1 % (15.3-44.8); MCV 80.9 fL (80-100); MPV 8.7 fL (7.6-11.3); RBC Red Blood Cell Count 4.18 M/uL (4.33-5.43)
[2022-06-28 05:26] LABS: Potassium 4.3 mmol/L (3.5-5.1); Thyroid Stimulating Hormone 1.62 uIU/mL (0.360-3.740)
[2022-06-28] MEDS ORDERED: ASPIRIN EC 81 MG TAB PO SCH (09:00)
[2022-06-28 09:18] VITALS: BP 171/72; TEMP 98.2
[2022-06-28] MEDS: FUROSEMIDE 20 MG/ 2ML VIAL IV SCH (09:38)
[2022-06-28] MEDS: ENOXAPARIN 40 MG/0.4 ML SQ SCH (09:39)
--- NOTE | 2022-06-28 13:59 | P.DS ---
Admission Date: 06/27/22 Discharge Date: 06/28/22 Disposition: ROUTINE DISCHARGE Discharge Condition: GOOD Reason for Admission: Hypoglycemia, NSTEMI Consultations: 1. Cardiology Hospital Course: DIAGNOSIS: # Hypoglycemia in Type II Diabetes Mellitus # Type II Non-ST Segment Elevation Myocardial Infarction (Demand Ischemia) # Coronary Artery Disease s/p CABG # Chronic Congestive Diastolic Heart Failure # Chronic Kidney Disease Stage III # Chronic Obstructive Pulmonary Disease # Hypertension HOSPITAL COURSE: Mr. Kyle De Guzman is a pleasant 87-year-old male with a past medical history significant for type 2 diabetes mellitus, chronic kidney disease stage III, chronic congestive heart failure, coronary artery disease s/p CABG, chronic obstructive pulmonary disease, and hypertension who was admitted to the [facility] on 06/27/2022 for hypoglycemia. Upon further evaluation, he was found to have a glucose of 27. He was admitted to the Medicine service for further evaluation. His insulin was held and he was treated with as needed dextrose, with improvement of his blood glucoses. As his glucose readings returned within normal limits, his generalized symptoms improved significantly. His troponin trend was 216.4 -> 193.1 -> 180.7 -> 179.3. Cardiology was consulted and he was evaluated by Dr. Lopez. He recommended a transthoracic echocardiogram, but this was cancelled by Dr. Oliveros given that he had a recent transthoracic echocardiogram on 04/24/2022. Cardiology has cleared him for discharge with an outpatient stress test. On 06/28/2022, he was seen on rounds and deemed medically stable for discharge. He was discharged with instructions to schedule follow-up appointments with his PCP (LIZY Underwood) and with Cardiology (Dr. Lopez). He was advised to stop taking his insulin until he follows-up with his PCP. He was given the opportunity to ask questions and reported no further questions. Furthermore, all questions were answered to the best of my ability. Today, I personally spent 20 minutes on his case, of which greater than 50% of the time was spent in patient education, counseling, and coordination of care as described above. Vital Signs/Physical Exam: Temp Pulse Resp BP Pulse Ox 98.2 F 86 18 171/72 H 98 06/28/22 11:42 06/28/22 11:42 06/28/22 11:42 06/28/22 11:42 06/28/22 11:42 General: Alert, In no apparent distress, Oriented x3 HEENT: Atraumatic, PERRLA, Mucous membr. moist/pink, EOMI, Sclerae nonicteric Neck: JVD not distended Respiratory: Clear to auscultation bilaterally, Normal air movement Cardiovascular: Regular rate/rhythm, Normal S1 S2, No gallops, No rubs, No murmurs, Edema (trace) Gastrointestinal: Normal bowel sounds, Soft and benign, Non-distended, No tenderness, No rebound, No guarding Musculoskeletal: No clubbing Integumentary: No rashes Neurological: Normal speech, Cranial nerves 3-12 intact, Normal affect Laboratory Data at Discharge: WBC 11.00 K/uL (4.3-10.9) H 06/28/22 04:29 Hgb 11.1 g/dL (13.6-17.9) L 06/28/22 04:29 Hct 33.8 % (39.6-49.0) L 06/28/22 04:29 Plt Count 243 K/uL (152-406) 06/28/22 04:29 Sodium 139 mmol/L (136-145) 06/28/22 04:29 Potassium 4.3 mmol/L (3.5-5.1) D 06/28/22 04:29 BUN 35 mg/dL (7-18) H 06/28/22 04:29 Creatinine 1.68 mg/dL (0.55-1.3) H 06/28/22 04:29 Glucose 116 mg/dL (74-106) H 06/28/22 04:29 Total Bilirubin 0.4 mg/dL (0.2-1.0) 06/27/22 02:10 AST 17 U/L (15-37) 06/27/22 02:10 ALT 16 U/L (12-78) 06/27/22 02:10 Alkaline Phosphatase 80 U/L (45-117) 06/27/22 02:10 Home Medications: Furosemide 40 mg PO DAILY 03/13/22 Simvastatin 80 mg PO DAILY 03/13/22 levETIRAcetam [Keppra] 500 mg PO BID 03/13/22 Physician Discharge Instructions: 1. Please call and schedule a follow-up appointment with your PCP (LIZY Underwood) in 3-5 days 2. Please call and schedule a follow-up appointment with Cardiology (Dr. Lopez) in 5-7 days - Please stop taking your insulin until you see your PCP Diet: AHA Activity: Ad kem Followup: Yosef Underwood PA [ALLIED HEALTH PROFESSIONAL] - (Follow up in 3-5 days) Jj Lopze MD [ACTIVE - CAN ADMIT] - Time spent managing pt's care (in minutes): 20
== END 2022-06-28 15:43 | disposition home or self-care (01) | DRG 637 ==
LOC: ER 01:19 → ERHOLD 05:48 → 3RD-ICU 06:28 → 4TH 10:45
PROVIDERS: ADMIT Internal Medicine; ATTEND Internal Medicine
DX: E11.649 Type 2 diabetes mellitus with hypoglycemia without coma (principal); I21.A1 Myocardial infarction type 2; I50.32 Chronic diastolic (congestive) heart failure; I13.0 Hypertensive heart and chronic kidney disease with heart failure and stage 1 through stage 4 chronic kidney disease, or unspecified chronic kidney disease; N18.30 Chronic kidney disease, stage 3 unspecified; E11.22 Type 2 diabetes mellitus with diabetic chronic kidney disease; E11.65 Type 2 diabetes mellitus with hyperglycemia; J44.9 Chronic obstructive pulmonary disease, unspecified; I25.10 Atherosclerotic heart disease of native coronary artery without angina pectoris; Z79.4 Long term (current) use of insulin; Z95.1 Presence of aortocoronary bypass graft; Z79.82 Long term (current) use of aspirin; Z86.73 Personal history of transient ischemic attack (TIA), and cerebral infarction without residual deficits; Z79.01 Long term (current) use of anticoagulants; Z20.822 Contact with and (suspected) exposure to COVID-19
CPT/HCPCS: 36415; 71045; 80048; 80053; 81015; 82947; 83036; 83880; 84439; 84443; 84484; 85025; 87811; 93005; 99285; J1650; J1940

== ENCOUNTER 2022-11-16 20:53 | Emergency (ER) | payer OTHER ==
[2022-11-16] MEDS ORDERED: NA CHLORIDE 0.9% 1,000 ML IV ONE (20:54)
[2022-11-16] MEDS ORDERED: EPINEPHrine 1 MG/10 ML SYR IV ONE (20:54)
[2022-11-16] MEDS ORDERED: Calcium Chloride 10% INJ SYR IV ONE (20:54)
--- OUTSIDE RECORDS SUMMARY | 2022-11-16 20:57 | XMS REPORT | Continuity of Care Document ---
:1935 Author Organization [facility] t Address [address] [place] [address] [place] [id number] Care Team Providers Name Role Phone Jatinder VILLARREAL Claudia Adeline Primary Care Physician Finn [place] Attending Clinician Unavailable Falguni Parker MA Attending Clinician Unavailable Marie HUERTA, Yoshi Ortiz Attending Clinician Mg-Mbayo_A_AH Attending Clinician Unavailable Mg-Mbayo_A_AH Admitting Clinician Unavailable Payers Payer Name Policy Type Policy Number Effective Date Expiration Date S maryanne AETNA MEDICARE C1 [id number] 2020 [facility] 00:00:[facility] - [facility] AETNA MEDICARE C1 [id number] 2020 [facility] [id number] 2020 [facility] 00:00:[facility] - [facility] AETNA MEDICARE C1 [id number] 2020 [facility] [id number] 2020 [facility] S [facility] 00:00:00 - [facility] AETNA MEDICARE C1 [id number] 2020 Common S [facility] 00:00:00 - [facility] [employer] [place] [id number] 2019 - [place] 00:00:00 (MEDICARE REPLACEMENT/ADV ANTAGE - HMO) Problems Condition Condition Condition Status Onset Resolution Last Treating Co mments Source Name Details Category Date Date Treatment Clinician Date Hyperchole Hyperchole Problem Active V illage sterolemia sterolemia 4- Fa dontrell 00:00: Practic 00 e Normal Normal Problem Active [facility] body mass Body Mass 4-09 Fami ly index Index 00:00: Practic 00 e Chronic Chronic Problem Active 2018-[address] 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 Added automatic ally from request for surgery [id number] Angina Angina Disease Active 2017-07 [facility] pectoris [...] CAD in CAD in Disease Active [facility] [place] 9-12 st artery artery 00:00: Hospita 00 [...] 00:00: Hosp eli disease disease 00 l [id number] Type 2 [place] [address] diabetes Spirit mellitus - [facility] with 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 loss Medical (chronic) Center Mitral Mitral Problem Active Common valve valve Spirit prolapse prolapse - [facility] Chronic Chronic Problem Active Common renal renal Spirit disease disease - [facility] Gastro-eso Gastro-eso Problem Active C ommon phageal phageal Spirit reflux reflux - CHI disease disease St without without [facility] esophagiti esophagiti Me dical s s Center Type II Diabetes Problem Active Common diabetes type 2, Spirit mellitus controlled - CH I well [facility] Dementia Dementia Problem Active Commo n Spirit - [facility] Peripheral Peripheral Problem Active C ommon vascular vascular Spirit disease disease - [facility] Essential Benign Problem Active Common hypertensi essential Spi rit on HTN - [facility] [id number] Chronic Problem Active Common obstructiv Spirit e - CHI pulmonary [facility] unspecifie Medica l d COPD Center type Seizure Seizure Problem Active Common disorder disorder Spirit [facility] [id number] Patient's Problem Active Com mon noncomplia Spirit nce with - CHI dietary [facility] 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 class 4 [facility] [id number] nursing home Problem Active Com mon (current) Spirit use of - CHI insulin [facility] [id number] Type 2 Problem Active Common diabetes Spirit mellitus - [facility] with other diabetic [facility] kidney Medical complicati Center on [id number] Proteinuri Problem Active Com mon a, Spirit unspecifie - CHI d type [facility] Allergies, Adverse Reactions, Alerts Allergy Allergy Status Severity Reaction(s) Onset Inactive Treating Comm ents Source Name Type Date Date Clinician No Known Propensi Active 2015-07 Method i Drug ty to 0 Allerg adverse 00:00: Hospita s reaction 00 l s to drug Family History Family Member Diagnosis Comments Start Date Stop Date Source Natural father CABG/Stent [facility] Natural mother [facility] Natural sister Diabetes type II Meth [facility] Social History Social Habit Start Date Stop Date Quantity Comments Source History of Tobacco Common Spirit - Use [facility] Cigarettes smoked 2019-06-10 2019-06-10 [facility] current (pack per 00:00:00 00:00:00 Hospita l day) - Reported Cigarette 2019-06-10 2019-06-10 [facility] pack-years 00:00:00 00:00:00 Hospital Tobacco use and 2019-06-10 2019-06-10 Smokeless tobacco [facility] exposure 00:00:00 00:00:00 non-user Hospital Alcohol intake 2019-06-10 2019-06-10 Current [facility] 00:00:00 00:00:00 non-drinker of Hospital alcohol (finding) Tobacco Comment 2018-06-26 2018-06-26 quit 30 years ago [facility] 00:00:00 00:00:00 Hospital Sex Assigned At [birth year] [facility] 00:00:00 00:00:00 Hospital Smoking Status Start Date Stop Date Source Former Smoker 2021-06-16 00:00:00 2021-06-16 00:00:00 [facility] - [facility] Medications Ordered Filled Start Stop Current Ordering Indication Dosage Frequency Signature Comments Components Source Medication Medication Date Date Medication? Clinician (SIG) Name Name Albuterol Albuterol Yes Finn 1 puff as Common Sulfate HFA Sulfate HFA 1-13 [place] needed Spirit 00:00: - CHI 00 [facility] Albuterol Albuterol 2020-0 No 1{puff_ Albuterol Sulfate [...] No Finn take 1 Common Ellipta Ellipta 1-13 12-08 [place] puff Spirit 00:00: 00:00 - CHI 00 :00 [facility] ferrous 2019-1 Yes 325mg Q.5D Take 325 Metho di [...] tablet 15 (two) l times a day. ferrous 2018-07 Yes 325mg Q.5D Take 325 [...] MOUTH Hospita tablet 00 EVERY l NIGHT atorvastati 2018-07 Yes TAKE 1 Meth gia n (LIPITOR) 0-[address] 40 MG 00:00: MOUTH Hospita tablet 00 EVERY l NIGHT losartan Yes Methodi (COZAAR) 50 5-04 st MG tablet 00:00: Hospita 00 l losartan 0 Yes [facility] (COZAAR) 50 5-04 st MG tablet 00:00: Hospita 00 l pantoprazol Yes 40mg Q.5D Take 40 mg Methodi e 5-[address] (PROTONIX) 00:00: (two) Hospit a 40 MG EC 00 times a l tablet day. pantoprazol Yes 40mg Q.5D Take 40 mg Methodi e 5-[address] (PROTONIX) 00:00: (two) Hospit a 40 MG EC 00 times a l tablet day. aspirin Yes TK 1 T PO Metho di (ECOTRIN) 3-[address] 81 MG 00:00: DAYS Hospita enteric 00 l coated tablet aspirin Yes TK 1 T PO Metho di (ECOTRIN) 3-[address] 81 MG 00:00: DAYS Hospita enteric 00 l coated tablet One Touch One Touch Yes Finn 1 lancet Common Delica Delica 07-31 [place] Spirit Lancets Lancets 00:00: - CHI 00 [facility] OneTouch OneTouch Yes Finn 1 test C ommon Verio Verio 07-31 [place] strip Spirit 00:00: - CHI 00 [facility] One Touch One Touch No QD One [...] Touch One Touch No QD Delica Delica -09 Lancets Lancets 00:00: Lancet Lancet 00 One Touch One Touch No QD One Touch Delica Delica 1-09 Delica Lancets Lancets 00:00: Lancets Lancet Lancet 00 Lancet One Touch One Touch No QD One Touch Delica Delica - Delica Lancets Lancets 00:00: Lancets Lancet Lancet 00 Lancet One Touch One Touch No QD One Touch Delica Delica 07-31 Delica Lancets Lancets 00:00: Lancets Lancet Lancet 00 Lancet Adult Multi Adult Multi No Adult Village plus plus Multi plus Family [place]-3 1 [place]-3 1 [place]-3 1 Practic TAB DAILY TAB DAILY TAB [...] e clopidogrel clopidogrel No [address] [facility] 75 mg 75 mg l 75 mg Family tablet Take tablet Take tablet Practic 1 tablet 1 tablet Take 1 e every day every day tablet by oral by oral every day route. route. by oral route. donepezil donepezil No [address] [facility] 10 mg 10 mg 10 mg [...] route. furosemide furosemide No [address] [facility] 80 mg 80 mg 80 mg [...] meals. multivitami multivitami No 1capsul Q1D multivitam [facility] n capsule n capsule e(s) in capsule Family Take 1 Take 1 Take 1 Practic capsule capsule capsule e every day every day every day by oral by oral by oral route with route with route with meals. meals. meals. simvastatin sim[facility]atin No 1 [facility] mg n 40 mg Family tablet Take tablet Take tablet Practic 1 tablet 1 tablet Take 1 e every day every day tablet by oral by oral every day route. route. by oral route. Aricept Aricept Yes Finn 1 tablet Com mon [place] at bedtime [facility] Ferrous Ferrous Yes Finn 1 tablet Com mon Sulfate Sulfate [place] [facility] Hemocyte Hemocyte Yes Finn 1 capsule Common Plus Plus [place] [facility] Donepezil Donepezil Yes Finn TAKE 1 C ommon HCl HCl [place] TABLET BY Spirit MOUTH - CHI EVERYDAY St AT BEDTIME [facility] BD Pen BD Pen Yes Finn USE Common Needle Katrina Needle Katrina [place] DIRECTED Spirit U/F U/F DAILY - [facility] Plavix Plavix Yes Finn [address] [facility] Levemir Levemir Yes Finn INJECT Commo n FlexTouch FlexTouch [place] UNDER THE Spirit SKIN 36 - CHI UNITS St EVERY DAY [facility] Keppra Keppra Yes Finn [address] [facility] Furosemide Furosemide Yes Finn 1 tablet Common [place] [facility] Fish Oil Fish Oil Yes Finn 1 capsule Common [place] [facility] Cozaar Cozaar Yes Finn 1 tablet Commo n [place] [facility] Levetiracet Levetiracet Yes Finn TAKE 1 Common am am [place] TABLET BY [facility] MOUTH - CHI TWICE A [facility] Losartan Losartan Yes Finn TAKE 1 Com mon Potassium Potassium [place] TABLET BY [facility] MOUTH - CHI EVERY DAY [facility] Aspir-81 Aspir-81 Yes Finn 1 tablet C ommon [place] [facility] Simvastatin Simvastatin Yes Finn 1 tablet Common [place] in the [facility] evening CHI [facility] Clopidogrel Clopidogrel Yes Finn 1 tablet Common Bisulfate Bisulfate [place] Spir it [facility] Ferrous Ferrous Yes Finn TAKE 1 Commo n Sulfate Sulfate [place] TABLET BY Spi rit MOUTH - CHI TWICE A [facility] Victoza Victoza Yes Finn Inject 0.6 C ommon [place] mg/day x 1 Spirit week then - CHI 1.2 St mg/day. [facility] Max 1.8 Medical mg/day Center OneTouch OneTouch [...] Aricept 10 MG MG t_at_be MG dtime} Aspir-81 81 Aspir-81 81 No 1{table QD [...] Aricept 10 MG MG t_at_be MG dtime} [place] 3 [place] 3 No [place] 3 Fish Oil Fish Oil No 1{capsu [...] No 1{table QD MG MG t_at_be dtime} [place] 3 [place] 3 No Fish Oil Fish Oil No [...] MG t_in_th n 80 MG e_eveni ng} [place] 3 [place] 3 No [place] 3 Ferrous Ferrous No Ferrous Sulfate 325 [...] 1{table QD Simvastati 80 MG 80 MG t_in_ n 80 MG e_eveni ng} Levemir Levemir [...] OneTouch Verio - Verio - Verio - [place] 3 [place] 3 No [place] 3 Levemir Levemir No Levemir FlexTouch FlexTouch [...] Aricept 10 MG MG t_at_be MG dtime} Immunizations Ordered Immunization Filled Immunization Date Status Commen ts Source Name Name [employer] 2020-05-20 Completed [facility] - 09:49:00 [facility] FluAD FluAD 2020-05-20 Completed [facility] - 09:49:00 [facility] FluAD FluAD 2020-05-20 Completed [facility] - 09:49:00 [facility] FluAD FluAD 2020-05-20 Completed [facility] - 09:49:00 [facility] FluAD FluAD 2020-05-20 Completed [facility] - 09:49:00 [facility] FluAD FluAD 2020-05-20 Completed [facility] - 09:49:00 [facility] FluAD FluAD 2020-05-20 Completed [facility] - 09:49:00 [facility] FluAD FluAD 2019-05-20 Completed [facility] - 09:41:00 [facility] FluAD FluAD 2019-05-20 Completed [facility] - 09:41:00 [facility] FluAD FluAD 2019-05-20 Completed [facility] - 09:41:00 [facility] FluAD FluAD 2019-05-20 Completed [facility] - 09:41:00 [facility] FluAD FluAD 2019-05-20 Completed [facility] - 09:41:00 [facility] FluAD FluAD 2019-05-20 Completed [facility] - 09:41:00 [facility] FluAD FluAD 2019-05-20 Completed [facility] - 09:41:00 [facility] FluAD FluAD 2019-05-20 Completed [facility] - 00:00:00 [facility] influenza, influenza, 2019-04-22 Completed [facility] injectable, injectable, 00:00:00 Practice quadrivalent quadrivalent FluAD FluAD 2018-04-23 Completed [facility] - 15:37:00 [facility] FluAD FluAD 2018-04-23 Completed [facility] - 15:37:00 [facility] FluAD FluAD 2018-04-23 Completed [facility] - 15:37:00 [facility] FluAD FluAD 2018-04-23 Completed [facility] - 15:37:00 [facility] FluAD FluAD 2018-04-23 Completed [facility] - 15:37:00 [facility] FluAD FluAD 2018-04-23 Completed [facility] - 15:37:00 [facility] FluAD FluAD 2018-04-23 Completed [facility] - 15:37:00 [facility] FluAD FluAD 2018-04-23 Completed [facility] - 00:00:00 [facility] Vital Signs Vital Name Observation Time Observation Value Comments Source height 2021-03-23 09:30:00 72 [in_i] Common S [facility] - [facility] weight 2021-03-23 09:30:00 160.0 [lb_av] [facility] temperature 2021-03-23 09:30:00 97.5 [degF] Common [facility] bmi 2021-03-23 09:30:00 21.7 kg/m2 Common [facility] oximetry 2021-03-23 09:30:00 97 % Common [facility] respiratory rate 2021-03-23 09:30:00 17 /min Comm on [facility] blood pressure 2021-03-23 09:30:00 124 mm[Hg] Common [facility] - systolic [facility] blood pressure 2021-03-23 09:30:00 58 mm[Hg] Common [facility] - diastolic [facility] height 2021-02-23 08:50:00 72 [in_i] Common [facility] weight 2021-02-23 08:50:00 169.3 [lb_av] [facility] temperature 2021-02-23 08:50:00 97.5 [degF] Common [facility] bmi 2021-02-23 08:50:00 22.96 kg/m2 [facility] oximetry 2021-02-23 08:50:00 97 % Common [facility] respiratory rate 2021-02-23 08:50:00 16 /min Comm on [facility] blood pressure 2021-02-23 08:50:00 136 mm[Hg] Common [facility] - systolic [facility] blood pressure 2021-02-23 08:50:00 61 mm[Hg] Common [facility] - diastolic [facility] respiratory rate 2020-11-24 08:30:00 16 /min Comm on [facility] blood pressure 2020-11-24 08:30:00 138 mm[Hg] Common [facility] - systolic [facility] blood pressure 2020-11-24 08:30:00 70 mm[Hg] Common [facility] - diastolic [facility] height 2020-11-24 08:30:00 72 [in_i] Common [facility] weight 2020-11-24 08:30:00 164.8 [lb_av] Common [facility] temperature 2020-11-24 08:30:00 97.0 [degF] Common S pirit [facility] bmi 2020-11-24 08:30:00 22.35 kg/m2 Common [facility] oximetry 2020-11-24 08:30:00 97 % Common [facility] Height 2020-02-11 00:00:00 71 [in_i] [facility] BP Diastolic 2019-09-24 00:00:00 80 mm[Hg] [facility] Height 2019-09-24 00:00:00 71 [in_i] [facility] BMI (Body Mass 2019-09-24 00:00:00 24.6 kg/m2 [facility] Index Practice BP Systolic 2019-09-24 00:00:00 135 mm[Hg] [facility] Body Weight 2019-09-24 00:00:00 176.5 [lb_av] [facility] Systolic blood 2021-08-09 19:18:00 111 mm[Hg] [facility] pressure Diastolic blood 2021-08-09 19:18:00 56 mm[Hg] [facility] pressure Heart rate 2021-08-09 19:18:00 71 /min [facility] Body weight 2021-08-09 19:18:00 74.844 kg [facility] BMI 2021-08-09 19:18:00 22.38 kg/m2 [facility] Procedures Procedure Date / Time Performed Performing Clinician [facility] e ECG 12-LEAD 2021-08-09 19:24:37 Yoshi Salazar Plan of Care Planned Activity Planned Date Details Comments Source Future Scheduled 2022-08-14 COVID-19 VACCINE (#[facility] 14:58:48 [code = COVID-19 VACCINE (#1)] Future Scheduled 2022-08-14 65+ PNEUMOCOCCAL [facility] Test 14:58:48 VACCINE (1 - PCV) [code = 65+ PNEUMOCOCCAL VACCINE (1 - PCV)] Future Scheduled 2022-08-14 SHINGLES VACCINES (1 Met [facility] Test 14:58:48 of 2) [code = SHINGLES VACCINES (1 of 2)] Future Scheduled 2022-08-14 INFLUENZA VACCINE Method [facility] Test 14:58:48 [code = INFLUENZA VACCINE] Future Scheduled 2022-05-25 HEPATITIS B VACCINES Met [facility] Test 02:35:58 (1 of 3 - 3-dose series) [code = HEPATITIS B VACCINES (1 of 3 - 3-dose series)] Future Scheduled 2022-05-25 COVID-19 VACCINE (#1) Me [facility] Test 02:35:58 [code = COVID-19 VACCINE (#1)] Future Scheduled 2022-05-25 65+ [facility]AL [facility] 02:35:58 VACCINE (1 - PCV) [code = 65+ PNEUMOCOCCAL VACCINE (1 - PCV)] Future Scheduled 2022-05-25 SHINGLES VACCINES (1 Met [facility] Test 02:35:58 of 2) [code = SHINGLES VACCINES (1 of 2)] Future Scheduled 2022-05-25 INFLUENZA VACCINE Method [facility] Test 02:35:58 [code = INFLUENZA VACCINE] Encounters Start End Encounter Admission Attending Care Care Encounter Source Date/Time Date/Time Type Type Clinicians Facility Department ID 2021-08-17 Outpatient [place], [facility] [id number] Common 14:13:05 Finn [id number] [facility] 2021-08-17 Outpatient [place], [facility] [id number] Common 13:44:51 [facility] [id number] [facility] 2021-08-17 Outpatient [place], [facility] [id number] Common 13:34:10 Finn [id number] [facility] 2021-08-17 Outpatient [place], [facility] [id number] Common 13:33:51 Finn [id number] [facility] 2021-08-17 Outpatient [place], [facility] [id number] Common 12:59:05 Finn [id number] [facility] 2021-08-17 Outpatient [place], [facility] [id number] Common 12:28:35 Finn [id number] [facility] 2021-08-17 Outpatient [place], [facility] [id number] Common 12:27:34 Finn [id number] [facility] 2021-08-17 Outpatient [place], [facility] [id number] Common 12:26:46 Finn [id number] [facility] 2021-08-17 [facility] [place] [id number] Common 12:25:12 Finn [id number] [facility] 2021-08-17 Out[facility] [place], [facility] [id number] Common 11:20:00 Finn [id number] [facility] 2021-08-17 [facility] [place] [id number] Common 11:04:20 Finn [id number] [facility] 2022-02-28 2022-02-28 Telephone Elena, 1.2.840.1 [id number] [facility] 00:00:00 00:00:[address] 3.430.2.7 Hospit a .3.714358 l .8 2022-02-27 2022-02-27 Telephone Marie, 1.2.840.1 [id number] [facility] 00:00:00 00:00:00 Y[address] 3.430.2.7 Hospit a .3.517032 l .8 2021-11-10 2021-11-10 (TEL) [facility] [id number] Co mmon 00:00:00 00:00:00 [facility] 2021-08-09 2021-08-09 Office Marie, 1.2.840.1 [id number] 2012 [facility] 13:45:00 14:00:00 Visit Yoshi Hernandez50.1.[address] 3.430.2.7 Hospit a .3.414365 l .8 2021-08-09 2021-08-09 Travel 1.2.840.1 1.2.006.877 [id number] [facility] 00:00:00 00:00:[address] 3.430.2.7 0.2.7.3.698 Ho spita .3.847778 084.8 l .8 2021-06-28 2021-06-28 Travel 1.2.840.1 1.2.257.027 [id number] Methodi 00:00:00 00:00:[address] 3.430.2.7 0.2.7.3.698 Ho spita .3.155996 084.8 l .8 2021-06-06 2021-06-06 (TEL) STLMLC STLMLC [id number] Co mmon 00:00:00 00:00:00 [facility] 2021-05-25 2021-05-25 (TEL) STLMLC STLMLC [id number] Co mmon 00:00:00 00:00:00 Spirit - [facility] 2021-03-23 2021-03-23 OFFICE STLMLC STLMLC [id number] Co mmon 00:00:00 00:00:00 VISIT Spirit ESTAB PT - CHI LEVEL 4 [facility] 2021-02-23 2021-02-23 OFFICE STLMLC STLMLC [id number] Co mmon 00:00:00 00:00:00 VISIT Spirit ESTAB PT - CHI LEVEL 4 [facility] 2020-12-23 2020-12-23 (TEL) STLMLC STLMLC [id number] Co mmon 00:00:00 00:00:00 Spirit - [facility] 2020-11-24 2020-11-24 OFFICE STLMLC STLMLC [id number] Co mmon 00:00:00 00:00:00 VISIT Spirit ESTAB PT - CHI LEVEL 4 [facility] 2020-11-17 2020-11-17 Outpatient Mg-Mbayo VFP VF [address] [facility] 12:10:00 12:10:00 _A_AH [id number] Family Practic e 2020-11-17 2020-11-17 Outpatient Mg-Mbayo VFP VFP [facility] 12:10:00 12:10:00 _A_AH [id number] Family Practic e 2020-09-16 2020-09-16 Outpatient Mg-Mbayo VFP VFP [address] [facility] 06:31:00 06:31:00 _A_AH 10229 Family Practic e 2020-09-16 2020-09-16 Outpatient Mg-Mbayo VFP VFP [address] [facility] 06:31:00 06:31:00 _A_AH 45327 Family Practic e 2020-09-16 2020-09-16 Outpatient Mg-Mbayo VFP VFP [address] [facility] 06:31:00 06:31:00 _A_AH 50450 Family Practic e 2020-08-26 2020-08-26 Outpatient STLMLC STLMLC [id number] Common 00:00:00 00:00:00 [facility] 2020-08-26 2020-08-26 Outpatient STLMLC STLMLC [id number] Common 00:00:00 00:00:00 [facility] 2020-06-22 2020-06-22 Outpatient STLMLC STLMLC [id number] Common 00:00:00 00:00:00 [facility] 2020-05-20 2020-05-20 Outpatient STLMLC STLMLC [id number] Common 00:00:00 00:00:00 [facility] 2020-02-20 2020-02-20 Outpatient Mg-Mbayo VFP VFP [address] [facility] 02:01:00 02:01:00 _A_AH [id number] Family Practic e 2020-02-19 2020-02-19 [id number] Common 08:15:00 08:15:[address] [facility] Medicine [facility] 2020-02-17 2020-02-17 Outpatient Mg-Mbayo VFP VFP [address] [facility] 04:24:00 04:24:00 _A_AH 53116 Family Practic e 2020-02-11 2020-02-11 [place] - [id number] V illage 00:00:00 00:00:00 Gm-Mbay [facility] Fam whitney gonsalez [employer]: Medical - Practi c [address] [email or web address] [facility], [address], [place] [address] , Ph. 2019-12-23 2019-12-23 Outpatient Mg-Roula VFP VFP [address] [place] [address] 02:52:00 02:52:00 _A_AH 21509 Family Practic e 2019-12-16 2019-12-16 Outpatient Mg-Mbeddao VFP VFP [address] [place] [address] 12:32:00 12:32:00 _A_AH 68402 Family Practic e 2019-11-20 2019-11-20 Outpatient [id number] Common 14:10:00 14:10:[address] [facility] 2019-11-20 2019-11-20 [id number] Common 10:15:00 10:15:[address] [facility] 2019-09-30 2019-09-30 [facility] [id number] Common 11:22:00 11:22:[address] [facility] 2019-09-24 2019-09-24 Outpatient Mg-[facility] VFP VFP [address] [place] [address] 11:38:00 11:38:00 _[id number] [id number] Family Practic e 2019-09-24 2019-09-24 [place] [facility] [place] - [id number] V illage 00:00:00 00:00:[address] [facility] Fam whitney gonsalez [employer] MECHANIC: Medical - Practi c [id number] [email or web address] [email or web address], [address], [place] [address] , Ph. 2019-09-10 2019-09-10 Outpatient Mg-[facility] VFP VFP [address] [place] [address] 07:21:00 07:21:00 _A_AH [id number] Family Practic e 2019-08-27 2019-08-27 [facility] [id number] Common 14:33:00 14:33:[address] [facility] 2019-08-21 2019-08-21 [facility] [id number] Common 10:30:00 10:30:[address] [facility] 2019-08-04 2019-08-04 [facility] [id number] Common 10:00:00 10:00:[address] [facility] 2019-07-21 2019-07-21 [facility] [id number] Common 10:03:00 10:03:[address] [facility] 2019-05-20 2019-05-20 [facility] [id number] Common 09:30:00 09:30:[address] [facility] 2019-02-17 2019-02-17 [facility] [id number] Common 09:45:00 09:45:[address] [facility] 2018-11-25 2018-11-25 [facility] [id number] Common 08:30:00 08:30:[address] [facility] 2018-11-18 2018-11-18 [facility] [id number] Common 09:30:00 09:30:[address] [facility] 2018-11-14 2018-11-14 [facility] [id number] Common 13:24:00 13:24:[address] [facility] 2018-08-20 2018-08-20 [facility] [id number] Common 09:30:00 09:30:[address] [facility] 2018-07-31 2018-07-31 [facility] [id number] Common 09:18:00 09:18:[address] [facility] 2018-07-01 2018-07-01 [facility] [id number] Common 11:33:00 11:33:[address] [facility] 2018-05-09 2018-05-09 [facility] [id number] Common 11:00:00 11:00:[address] [facility] [address] [facility] 2018-04-23 2018-04-23 [facility] [id number] Common 10:15:00 10:15:[address] [facility] 2018-04-16 2018-04-16 [facility] [id number] Common 13:57:00 13:57:[address] [facility] 2018-02-12 2018-02-12 [facility] [id number] Common 09:21:00 09:21:[address] [facility] 2018-01-11 2018-01-11 [facility] [id number] Common 08:23:00 08:23:00 [address] [facility] [address] [facility] 2018-01-08 2018-01-08 [facility] [id number] Common 13:53:00 13:53:[address] [facility] 2018-01-03 2018-01-03 [facility] [id number] Common 13:30:00 13:30:[address] [facility] Results Test Description Test Time Test Comments Results Result Comments Source ECG 12 lead 2021-08-09 23:36:47 Test Item Value Reference Range Interpretation Comme nts Ventricular rate (test code = 253) Atrial rate (test code = 255) OH interval (test code = 266) QRSD interval [...] wave abnormality, consider inferolateral ischemia-Prolonged QT-Abnormal ECG- [facility]
--- NOTE | 2022-11-16 21:31 | ER ---
Nurse's Notes [facility] Name: Kyle De Guzman Age: 87 yrs Sex: Male : 1935 Arrival Date: 11/16/2022 Time: 20:53 Bed 2 Private MD: Diagnosis: Cardiac arrest due to underlying cardiac condition-PULSELESS ELECTRIC ACTIVITY/ASYSTOLE Presentation: 11/16 20:50 Chief complaint: EMS states: CPR in progress for approximately 15-20 minutes TRAFFIC OPERATIONS MANAGER per pf1 EMS. EMS stated arrived at patient house at 2012, patient was found down on the floor,unresponsive, no pulse and not breathing. EMS patient stated FSBGL 237, 15gauge 25mm IO placed to right lower extremity, intubated with ETT 7.0 placed 27cm at the lip, Epi x 3 doses was given per TRAFFIC OPERATIONS MANAGER. 20:50 Coronavirus screen: Vaccine status: Patient reports being unvaccinated. unknown. Ebola pf1 Screen: Unable to complete the Ebola screening because: Patient is unresponsive. Initial Sepsis Screen: Does the patient meet any 2 criteria? No. Patient's initial sepsis screen is negative. Does the patient have a suspected source of infection? No. Patient's initial sepsis screen is negative. Risk Assessment: Do you want to hurt yourself or someone else? Unable to obtain. Onset of symptoms was November 16, 2022. 20:50 Method Of Arrival: EMS: [facility] pf1 20:50 Acuity: JAVI 1 pf1 20:50 Care prior to arrival: Oral intubation, CPR via thumper. pf1 20:50 Care prior to arrival: Medication(s) given: epi x 3 doses TRAFFIC OPERATIONS MANAGER IV initiated. in the pf1 right lower extremity IO 15 gauge placed Glucose check: 237. Compressions began at 20:13. Historical: - Allergies: 20:50 Unable to obtain; pf1 - PMHx: 20:50 COPD; Diabetes - IDDM; Hypertension; possible CVA vs seizure; pf1 - PSHx: 20:50 triple bypass; pf1 - Immunization history:: Adult Immunizations unknown. - Family history:: not pertinent. - Social history:: Smoking status: unknown. Screenin:28 Abuse screen: unknown, patient unresponsive. Nutritional screening: unknown. pf1 Tuberculosis screening: unknown. Assessment: 20:50 General: Appears distressed, Behavior is unresponsive. pf1 20:50 Pain: Unable to use pain scale. Patient is intubated. Patient is unresponsive. Neuro: pf1 Level of Consciousness is unresponsive, Oriented to none. Cardiovascular: Capillary refill is > 3 seconds. Respiratory: Airway via oral intubation ETT 7.0 placed at 27cm at the lip per EMS Ventilator assessment: ET Tube: 7.0 at lip. 27cm chest compression and bagging patient at this time. GI: Abdomen is flat, non-distended. : No deficits noted. EENT: No deficits noted. Derm: Skin is fragile, Skin is dry, Skin is dusky, pale, Skin temperature is cool. Musculoskeletal: patient unresponsive. 20:50 CPR assessment: unresponsive, pupils fixed \T\ dilated, no respiratory effort, intubated, pf1 Ambu ventilation, pale, pulses present w/ compressions. 20:51 Reassessment: continue chest compressions, patient ventilated with ambu bag per RT.. pf1 20:52 Cardiac rhythm is PEA. pf1 20:53 Reassessment: continue chest compressions, patient ventilated with ambu bag per RT. pf1 20:54 Cardiac rhythm is PEA. pf1 20:55 Reassessment: continue chest compression and patient ventilated with ambu bag per RT. pf1 20:56 Cardiac rhythm is PEA. pf1 20:57 Reassessment: continue chest compressions, patient ventilated with ambu bag per RT. pf1 20:58 Cardiac rhythm is PEA. pf1 20:59 Reassessment: continue chest compressions, patient ventilated with ambu bag per RT. pf1 21:00 Cardiac rhythm is PEA. pf1 21:01 Reassessment: continue chest compressions, patient ventilated with ambu bag per RT. pf1 21:02 Cardiac rhythm is PEA. pf1 21:02 Reassessment: Dr. Jimenez at performing FAST exam with US for cardiac activity. pf1 21:03 Reassessment: patient ventilated with ambu bag per RT. pf1 21:05 Cardiac rhythm is PEA. pf1 21:09 Reassessment: Patient time of called per Dr. Jimenez. pf1 21:45 Reassessment: spoke with Dana Gilberto with [employer] stated patient is not a pf1 candidate to be a donor.. 22:00 General: Electronic Technologist Handy at BS. . pf1 22:10 General: Abiola Olguin with [place] [employer] stated Regional Commercial Sales Manager Noah determined no autopsy to be pf1 performed and to release patient to home.. 22:15 Reassessment: Family at . pf1 22:45 Reassessment: [facility] arrived to slat pickler patient. . pf1 Vital Signs: 20:50 Temp 99.6(R); pf1 ED Course: 20:50 CPR. pf1 20:55 Inserted saline lock: 20 gauge in right antecubital area, using aseptic technique. pf1 Blood collected. 21:00 Patient has correct armband on for positive identification. Bed in low position. pf1 21:10 Patient arrived in ED. kl 21:13 Gino Jimenez MD is Attending Physician. chelle 21:28 Triage completed. pf1 21:30 Gino Jimenez MD is Pronouncing Provider. chelle 22:15 Marissa garg, RN is Primary Nurse. pf1 Administered Medications: 11/17 02:21 Discontinued: NS 0.9% IV 1000 ml IV at 1 bolus in Other Per protocol; 1000 mL bolus pf1 11/16 20:53 Drug: Calcium Chloride IVP 10% 10 ml Route: IVP; Site: Other; pf1 21:09 Follow up: Response: Cardiac rhythm is unchanged pf1 20:53 Drug: NS 0.9% IV 1000 ml Route: IV; Rate: 1 bolus; Site: Other; pf1 20:54 Drug: Sodium Bicarbonate IVP 1 amp Route: IVP; Site: Other; pf1 21:09 Follow up: Response: Cardiac rhythm is unchanged pf1 20:54 Drug: EPINEPHrine 1:10,000 IVP 1 mg Route: IVP; Site: Other; pf1 21:09 Follow up: Response: Cardiac rhythm is unchanged pf1 20:56 Drug: EPINEPHrine 1:10,000 IVP 1 mg Route: IVP; Site: right antecubital; pf1 21:09 Follow up: Response: Cardiac rhythm is unchanged pf1 20:58 Drug: EPINEPHrine 1:10,000 IVP 1 mg Route: IVP; Site: right antecubital; pf1 21:09 Follow up: Response: Cardiac rhythm is unchanged pf1 20:59 Drug: Sodium Bicarbonate IVP 1 amp Route: IVP; Site: right antecubital; pf1 21:09 Follow up: Response: Cardiac rhythm is unchanged pf1 21:00 Drug: Calcium Chloride IVP 10% 10 ml Route: IVP; Site: right antecubital; pf1 21:09 Follow up: Response: Cardiac rhythm is unchanged pf1 Medication: 21:00 VIS not applicable for this client. pf1 Outcome: 22:44 Patient left the ED. as6 22:44 Condition: pf1 22:44 Patient : Time of 21:09 Pronounced by Gino Jimenez MD Body to pf1 home. Signatures: Aubrie Adair RN RN kl Anderson, Corey, MD MD cha Slawson, Ashby, RN RN as6 Marissa garg RN RN pf1 Corrections: (The following items were deleted from the chart) 21:39 20:50 Chief complaint: EMS states: CPR in progress for approximately 15-20 minutes TRAFFIC OPERATIONS MANAGER pf1 per EMS. EMS stated patient was found down on the floor,unresponsive, no pulse and not breathing. EMS patient stated FSBGL 237, 15gauge 25mm IO placed to right lower extremity, intubated with ETT 7.0 placed 27cm at the lip, Epi x 3 doses was given per TRAFFIC OPERATIONS MANAGER. pf1 11/17 02:02 11/16 22:15 Injury Description: family at the pf1 pf1 11/17 06:04 11/16 20:51 Reassessment: continue chest compressions. pf1 pf1 11/17 06:14 11/16 20:52 Cardiac rhythm is PEA pf1 pf1 11/17 06:25 11/16 21:45 Reassessment: spoke with Dana Macias with [facility], declined patient pf1 to be a donor. pf1
--- NOTE | 2022-11-16 21:31 | EDPHYS ---
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 21:14 Preceding the arrest, the patient collapsed. The arrest occurred at home. The patient chelle has not experienced similar symptoms in the past. 21:14 Pre-hospital course: The arrest was witnessed by family. Bystanders at the scene did chelle not perform CPR. collapse at home. Onset: The symptoms/episode began/occurred just prior to arrival. Severity of symptoms: At their worst the symptoms were incapacitating. Historical: - Allergies: 20:50 Unable to obtain; pf1 - PMHx: 20:50 COPD; Diabetes - IDDM; Hypertension; possible CVA vs seizure; pf1 - PSHx: 20:50 triple bypass; pf1 - Immunization history:: Adult Immunizations unknown. - Family history:: not pertinent. - Social history:: Smoking status: unknown. ROS: 21:22 Unable to obtain ROS due to cpr, inresponsive. chelle Exam: 21:22 Cardiovascular: Rate: actual rate is 72 bpm, Rhythm: regular, Pulses: not palpable, chelle Heart sounds: none, Edema: is not appreciated, JVD: is not appreciated. 21:25 Constitutional: This is a well developed, well nourished patient who is awake, alert, chelle and in no acute distress. Head/Face: Normocephalic, atraumatic. Eyes: Pupils equal round and reactive to light, extra-ocular motions intact. Lids and lashes normal. Conjunctiva and sclera are non-icteric and not injected. Cornea within normal limits. Periorbital areas with no swelling, redness, or edema. 21:25 Eyes: Pupils: dilated, bilaterally, are fixed and dilated. 21:25 Respiratory: Respiratory rate: 0 Vital Signs: 20:50 Temp 99.6(R); pf1 MDM: 21:13 Patient medically screened. chelle 21:27 Differential diagnosis: arrythmia, cardiac arrest, respiratory arrest, asphyxiation. [facility] Data reviewed: vital signs, nurses notes. Consideration of Admission/Observation Escalation of care including admission/observation considered. I considered the following discharge prescriptions or medication management in the emergency department Medications were administered in the Emergency Department. See MAR. Care significantly affected by the following chronic conditions: Hypertension. Counseling: I had a detailed discussion with the patient and/or guardian regarding: the historical points, exam findings, and any diagnostic results supporting the discharge/admit diagnosis. ED course: see rahel. Administered Medications: 11/17 02:21 Discontinued: NS 0.9% IV 1000 ml IV at 1 bolus in Other Per protocol; 1000 mL bolus pf1 11/16 20:53 Drug: Calcium Chloride IVP 10% 10 ml Route: IVP; Site: Other; pf1 21:09 Follow up: Response: Cardiac rhythm is unchanged pf1 20:53 Drug: NS 0.9% IV 1000 ml Route: IV; Rate: 1 bolus; Site: Other; pf1 20:54 Drug: Sodium Bicarbonate IVP 1 amp Route: IVP; Site: Other; pf1 21:09 Follow up: Response: Cardiac rhythm is unchanged pf1 20:54 Drug: EPINEPHrine 1:10,000 IVP 1 mg Route: IVP; Site: Other; pf1 21:09 Follow up: Response: Cardiac rhythm is unchanged pf1 20:56 Drug: EPINEPHrine 1:10,000 IVP 1 mg Route: IVP; Site: right antecubital; pf1 21:09 Follow up: Response: Cardiac rhythm is unchanged pf1 20:58 Drug: EPINEPHrine 1:10,000 IVP 1 mg Route: IVP; Site: right antecubital; pf1 21:09 Follow up: Response: Cardiac rhythm is unchanged pf1 20:59 Drug: Sodium Bicarbonate IVP 1 amp Route: IVP; Site: right antecubital; pf1 21:09 Follow up: Response: Cardiac rhythm is unchanged pf1 21:00 Drug: Calcium Chloride IVP 10% 10 ml Route: IVP; Site: right antecubital; pf1 21:09 Follow up: Response: Cardiac rhythm is unchanged pf1 Disposition: 21:31 Critical Care:. chelle Disposition Summary: 11/16/22 21:31 Patient Location: Home chelle Pronouncing Physician: Gino Jimenez cha Time of : 21:09 11/16/2022 chelle Diagnosis - Cardiac arrest due to underlying cardiac condition - PULSELESS ELECTRIC chelle ACTIVITY/ASYSTOLE Discharge Instructions: - Discharge Summary Sheet pf1 Forms: - SBAR form pf1 Critical care time excluding procedures: 21:31 Critical care time: Bedside Care: 25 minutes, Consultation: 5 minutes, Family chelle Intervention: 10 minutes. Total time: 40 minutes Signatures: Gino Jimenez MD MD cha finley, Pamala RN RN pf1
== END 2022-11-16 22:44 | disposition expired ==
LOC: ER 20:53
DX: I46.9 Cardiac arrest, cause unspecified (principal)
CPT/HCPCS: J0171; J7030